=== PATIENT | male | born 1940 | race African-American/Black ===

== ENCOUNTER 2016-08-21 14:01 | Emergency (ER) | payer MEDICARE, OTHER ==
--- NOTE | 2016-08-21 14:12 | ER Document Report ---
ED Medical Screen (RME) - General Chief Complaint: Urinary Problem Stated Complaint: URINARY PROBLEM Mode of Arrival: Ambulatory Information source: Patient Notes: Pt presents with c/o hematuria, hx of prostate cancer. Reports hematuria started last night. Reports he has not been able to urinate fully since December 2015 when his doctor dilated his ureter. He reports he is just pain and now is drinking blood. I have greeted and performed a rapid initial assessment of this patient. A comprehensive ED assessment and evaluation of the patient, analysis of test results and completion of the medical decision making process will be conducted by additional ED providers. TRAVEL OUTSIDE OF THE [place] IN LAST 30 DAYS: No - Related Data Allergies/Adverse Reactions: Penicillins Allergy (Verified 08/21/16 14:04) Past Medical History - Social History Chew tobacco use (# tins/day): No Frequency of alcohol use: Social Drug Abuse: None - Past Medical History Cardiac Medical History: Reports: Hx Hypercholesterolemia, Hx Hypertension Renal/ Medical History: Denies: Hx Peritoneal Dialysis Malignancy Medical History: Reports Hx Prostate Cancer Past Surgical History: Reports: Hx Genitourinary Surgery - Prostatectomy? - Immunizations Hx Diphtheria, Pertussis, Tetanus Vaccination: Yes Physical Exam - Vital signs Vitals: Temp Pulse Resp BP Pulse Ox 97.7 F 75 14 141/69 H 96 08/21/16 14:04 08/21/16 14:04 08/21/16 14:04 08/21/16 14:04 08/21/16 14:04 Course - Vital Signs Vital signs: Temp Pulse Resp BP Pulse Ox 97.7 F 75 14 141/69 H 96 08/21/16 14:04 08/21/16 14:04 08/21/16 14:04 08/21/16 14:04 08/21/16 14:04
[2016-08-21 14:35] LABS: ABSOLUTE EOSINOPHILS # (AUTO) 0.2 10^3/uL (0.0-0.6); ABSOLUTE LYMPHOCYTES (AUTO) 1.1 10^3/uL (0.5-4.7); ABSOLUTE MONOCYTES (AUTO) 0.4 10^3/uL (0.1-1.4); BASOPHILS % (AUTO) 0.7 % (0-2); EOSINOPHILS % (AUTO) 2.8 % (0-6); HEMOGLOBIN 11.9 g/dL (13.5-17.0); HGB HCT DIFFERENCE -2.3; LYMPHOCYTES % (AUTO) 18.6 % (13-45); MEAN CORPUSCULAR HEMOGLOBIN 27.3 pg (27.0-33.4); MEAN CORPUSCULAR HGB CONC 31.2 g/dL (32.0-36.0); MEAN CORPUSCULAR VOLUME 87 fl (80-97); RED BLOOD COUNT 4.34 10^6/uL (4.35-5.55); SEGMENTED NEUTROPHILS % (AUTO) 70.9 % (42-78); WHITE BLOOD COUNT 5.7 10^3/uL (4.0-10.5)
[2016-08-21 14:58] LABS: ALANINE AMINOTRANSFERASE 18 U/L (21-72); ALBUMIN 4.5 g/dL (3.5-5.0); ALKALINE PHOSPHATASE 124 U/L (38-126); ANION GAP 12 (5-19); ASPARTATE AMINO TRANSFERASE 24 U/L (17-59); BILIRUBIN,TOTAL 0.8 mg/dL (0.2-1.3); BLOOD UREA NITROGEN 16 mg/dL (7-20); CALCIUM 10.4 mg/dL (8.4-10.2); CARBON DIOXIDE 25 mmol/L (22-30); CHLORIDE 107 mmol/L (98-107); CREATININE RESULT 1.69 mg/dL (0.52-1.25); GLUCOSE 96 mg/dL (75-110); POTASSIUM 3.7 mmol/L (3.6-5.0); SODIUM 143.5 mmol/L (137-145)
--- NOTE | 2016-08-21 17:03 | ER Document Report ---
ED GI/ - General Chief Complaint: Urinary Problem Stated Complaint: URINARY PROBLEM Mode of Arrival: Ambulatory Information source: Patient Notes: Patient is a 75-year-old male with past medical history of prostate cancer with prostatectomy according to the patient in 2001. Patient wears a diaper daily for chronic "leakage". Patient states however last evening he saw a clot of blood from his penis. He states since then he's had some intermittent leakage with some intermittent blood clots. He denies any abdominal pain or fullness, he denies any fevers or vomiting. Patient does have a local urologist. TRAVEL OUTSIDE OF THE [place] IN LAST 30 DAYS: No - HPI Patient complains to provider of: Hematuria, Urinary retention. No: Testicular pain Onset: Other - See above Timing/Duration: Gradual Quality of pain: Achy Severity at maximum: Mild Severity in ED: Mild Pain Level: Denies Location: Suprapubic Associated symptoms: Other - See above Exacerbated by: Denies Relieved by: Denies Similar symptoms previously: Yes Recently seen / treated by doctor: No - Related Data Allergies/Adverse Reactions: Penicillins Allergy (Verified 08/21/16 14:04) Past Medical History - General Information source: Patient - Social History Smoking Status: Never Smoker Chew tobacco use (# tins/day): No Frequency of alcohol use: Social Drug Abuse: None Family History: Reviewed & Not Pertinent Patient has suicidal ideation: No Patient has homicidal ideation: No - Past Medical History Cardiac Medical History: Reports: Hx Hypercholesterolemia, Hx Hypertension Renal/ Medical History: Denies: Hx Peritoneal Dialysis Malignancy Medical History: Reports Hx Prostate Cancer Past Surgical History: Reports: Hx Genitourinary Surgery - Prostatectomy? - Immunizations Hx Diphtheria, Pertussis, Tetanus Vaccination: Yes Review of Systems - Review of Systems Constitutional: denies: Fever Gastrointestinal: denies: Abdomen distended, Abdominal pain, Diarrhea, Nausea, Vomiting Genitourinary: denies: Dysuria, Flank pain, Urgency Male Genitourinary: denies: Testicular pain Skin: denies: Rash -: Yes All other systems reviewed and negative Physical Exam - Vital signs Vitals: Temp Pulse Resp BP Pulse Ox 97.7 F 75 14 141/69 H 96 08/21/16 14:04 08/21/16 14:04 08/21/16 14:04 08/21/16 14:04 08/21/16 14:04 Notes: Reviewed vital signs and nursing note as charted by RN. CONSTITUTIONAL: Alert and oriented and responds appropriately to questions. Well -appearing; well-nourished HEAD: Normocephalic; atraumatic EYES: Conjunctivae is not pale ABD/GI: Normal bowel sounds; non-distended; soft, non-tender, no rebound, no guarding; no palpable organomegaly or masses GI/: Patient does have some mild blood from the urethral meatus. No obvious testicular pain or swelling. No penile lesions. No internal masses present. BACK: The back appears normal and is non-tender to palpation, there is no CVA tenderness EXT: Normal ROM in all joints; non-tender to palpation; no cyanosis, no effusions, no edema SKIN: Normal color for age and race; warm; dry; good turgor; capillary refill < 2 seconds; no acute lesions noted NEURO: Moves all extremities equally; Motor and sensory function intact PSYCH: The patient's mood and manner are appropriate. Grooming and personal hygiene are appropriate. Course - Re-evaluation Re-evalutation: Given the history and physical examination we will order hemoglobin, chemistry, and check the patient's urinalysis as well as attempt to place a three-way stopcock Draper with some gentle irrigation. 08/21/16 17:03 Hemoglobin and chemistry as recorded. Creatinine is baseline or slightly better than normal. Patient still denies any pain. 08/21/16 18:42 Urinalysis as recorded. Urine Draper catheterization shows now on a very minimally tinted urine. I performed a rectal examination can detect no obvious masses. Patient still has no pain. Patient did not have a large volume of urine with Draper insertion. Patient will be placed with a Draper leg bag, urine culture will be pending, and I will start the patient on a short course of antibiotics. Strict return precautions have been explained. - Vital Signs Vital signs: Temp Pulse Resp BP Pulse Ox 97.7 F 75 14 141/69 H 96 08/21/16 14:04 08/21/16 14:04 08/21/16 14:04 08/21/16 14:04 08/21/16 14:04 - Laboratory Result Diagrams: 08/21/16 14:20 08/21/16 14:20 Laboratory results interpreted by me: 0108/21/16 08/21/16 14:20 14:20 17:00 RBC 4.34 L Hgb 11.9 L MCHC 31.2 L RDW 15.0 H Creatinine 1.69 H Est GFR ( Amer) 48 L Est GFR (Non-Af Amer) 40 L Calcium 10.4 H ALT 18 L Urine Protein >=500 H Urine Ketones TRACE H Urine Blood LARGE H Ur Leukocyte Esterase TRACE H Discharge - Discharge Clinical Impression: Hematuria Condition: Good Disposition: HOME, SELF-CARE Additional Instructions: Come back immediately with any pain, fevers, vomiting, inability to urinate, or any other acute problems. Please follow-up with urology as we have discussed. Prescriptions: Sulfamethoxazole/Trimethoprim [Bactrim Ds Tablet] 1 each PO BID #14 tablet
[2016-08-21 18:28] LABS: BILIRUBIN,URINE NEGATIVE (NEGATIVE); CALCIUM OXALATE CRYSTALS,URINE MANY /HPF; GLUCOSE, URINE NEGATIVE (NEGATIVE); KETONES,URINE TRACE mg/dL (NEGATIVE); LEUKOCYTE ESTERASE,URINE TRACE (NEGATIVE); NITRITE,URINE NEGATIVE (NEGATIVE); PROTEIN,URINE >=500 mg/dL (NEGATIVE); URINE SPECIFIC GRAVITY 1.012; UROBILINOGEN,URINE NEGATIVE mg/dL (<2.0)
[2016-08-21 18:30] LABS: APPEARANCE,URINE TURBID
[2016-08-21] MEDS ORDERED: SULFAMETHOXAZOLE/TRIMETHOPRIM 800-160 MG TABLET PO ONE (18:41)
[2016-08-21 19:15] VITALS: BP 143/66
== END 2016-08-21 19:14 | disposition home or self-care (01) ==
LOC: ER 14:01
DX: R31.9 Hematuria, unspecified (principal); E78.00 Pure hypercholesterolemia, unspecified; I10 Essential (primary) hypertension; Z85.46 Personal history of malignant neoplasm of prostate
CPT/HCPCS: 99283; 51702; 36415; 87086; 85025; 80053; 81001; A9270

== ENCOUNTER 2016-08-24 12:33 | Emergency (ER) | payer MEDICARE, OTHER ==
--- NOTE | 2016-08-24 12:41 | ER Document Report ---
ED Medical Screen (RME) - General Stated Complaint: POSSIBLE BLOOD IN URIN Notes: Blood in urine since has a leg bag in place. No output since 10:00 last night leaking out around the urethra. I greeted and performed a rapid initial assessment of this patient. Comprehensive ED assessment and evaluation of the patient, analysis of test results and completion of the medical decision making process will be conducted by additional ED providers. TRAVEL OUTSIDE OF THE [place] IN LAST 30 DAYS: No - Related Data Allergies/Adverse Reactions: Penicillins Allergy (Verified 08/21/16 14:04) Past Medical History - Past Medical History Cardiac Medical History: Reports: Hx Hypercholesterolemia, Hx Hypertension Renal/ Medical History: Denies: Hx Peritoneal Dialysis Malignancy Medical History: Reports Hx Prostate Cancer Past Surgical History: Reports: Hx Genitourinary Surgery - Prostatectomy? - Immunizations Hx Diphtheria, Pertussis, Tetanus Vaccination: Yes Physical Exam - Vital signs Vitals: Temp Pulse Resp BP Pulse Ox 98.1 F 66 20 109/55 L 100 08/24/16 12:39 08/24/16 12:39 08/24/16 12:39 08/24/16 12:39 08/24/16 12:39 Course - Vital Signs Vital signs: Temp Pulse Resp BP Pulse Ox 98.1 F 66 20 109/55 L 100 08/24/16 12:39 08/24/16 12:39 08/24/16 12:39 08/24/16 12:39 08/24/16 12:39
[2016-08-24] MEDS ORDERED: LIDOCAINE 2% URO-JET 5 ML KIT MM ONE (14:03)
--- NOTE | 2016-08-24 14:04 | ER Document Report ---
ED GI/ - General Chief Complaint: Problem with Urinary Catheter Stated Complaint: POSSIBLE BLOOD IN URIN Mode of Arrival: Ambulatory Information source: Patient Notes: Patient was evaluated in the emergency department 3 days ago after having hematuria. Patient had a Draper catheter placed to leg bag and was discharged home. Patient states he has been taking his antibiotic as prescribed. Patient reports decreased urine output since about 10 PM last night and some leaking around his Draper catheter. Patient states that he does have an appointment with the urologist tomorrow. Patient denies any fever, nausea, vomiting, or diarrhea. Patient denies any back pain or abdominal pain. TRAVEL OUTSIDE OF THE [place] IN LAST 30 DAYS: No - HPI Patient complains to provider of: Other - Decreased urine output, continued hematuria. No: Abdominal pain, Dysuria Onset: Other - 3 days Timing/Duration: Worse Quality of pain: No pain Pain Level: Denies Associated symptoms: Hematuria, Other - Decreased urine output. denies: Dysuria , Fever, Urinary hesitancy, Urinary frequency, Vomiting Exacerbated by: Denies Relieved by: Denies Similar symptoms previously: Yes Recently seen / treated by doctor: Yes - Related Data Allergies/Adverse Reactions: Penicillins Allergy (Verified 08/24/16 12:42) Past Medical History - General Information source: Patient - Social History Smoking Status: Never Smoker Chew tobacco use (# tins/day): No Frequency of alcohol use: Occasional Drug Abuse: None Occupation: retired Lives with: Alone Family History: Reviewed & Not Pertinent Patient has suicidal ideation: No Patient has homicidal ideation: No - Past Medical History Cardiac Medical History: Reports: Hx Hypercholesterolemia, Hx Hypertension Renal/ Medical History: Denies: Hx Peritoneal Dialysis Malignancy Medical History: Reports Hx Prostate Cancer Past Surgical History: Reports: Hx Genitourinary Surgery - Prostatectomy? - Immunizations Hx Diphtheria, Pertussis, Tetanus Vaccination: Yes Review of Systems - Review of Systems Constitutional: Recent illness - Treatment for UTI. denies: Fever EENT: No symptoms reported Cardiovascular: No symptoms reported. denies: Chest pain Respiratory: No symptoms reported. denies: Cough, Short of breath Gastrointestinal: No symptoms reported. denies: Abdominal pain, Nausea, Vomiting Genitourinary: Hematuria, Other - Decreased urine output. denies: Dysuria, Flank pain Male Genitourinary: No symptoms reported Musculoskeletal: No symptoms reported. denies: Back pain Skin: No symptoms reported Hematologic/Lymphatic: No symptoms reported. denies: Easy bleeding, Easy bruising Neurological/Psychological: No symptoms reported Physical Exam - Vital signs Vitals: Temp Pulse Resp BP Pulse Ox 98.1 F 66 20 109/55 L 100 08/24/16 12:39 08/24/16 12:39 08/24/16 12:39 08/24/16 12:39 08/24/16 12:39 - General General appearance: Appears well, Alert In distress: None - HEENT Head: Normocephalic, Atraumatic Eyes: Normal Conjunctiva: Normal Nasal: Normal Mouth/Lips: Normal Mucous membranes: Normal Pharynx: Normal Neck: Normal, Supple. No: Lymphadenopathy - Respiratory Respiratory status: No respiratory distress Chest status: Nontender Breath sounds: Normal. No: Rales, Rhonchi, Stridor, Wheezing Chest palpation: Normal - Cardiovascular Rhythm: Regular Heart sounds: S1 appreciated, S2 appreciated - Abdominal Inspection: Normal Distension: No distension Bowel sounds: Normal Tenderness: Nontender Organomegaly: No organomegaly - Back Back: Normal, Nontender. No: CVA tenderness - Extremities General upper extremity: Normal inspection, Normal strength General lower extremity: Normal inspection, Normal strength - Neurological Neuro grossly intact: Yes Cognition: Normal Orientation: AAOx4 [place] Coma Scale Eye Opening: Spontaneous [place] Coma Scale Verbal: Oriented Livia Coma Scale Motor: Obeys Commands Livia Coma Scale Total: 15 - Psychological Associated symptoms: Normal affect, Normal mood - Skin Skin Temperature: Warm Skin Moisture: Dry Skin Color: Normal Course - Re-evaluation Re-evalutation: 08/24/16 14:[address] Conklin, agrees with plan to perform bladder irrigation and to replace his Draper catheter. 08/24/16 17:03 CBI to bedside, draining clear urine with occasional clots. Patient tolerating well. Patient denies any complaints at this time. 08/24/16 17:10 Call placed to contact Dr. Aguilar who is on-call for urology. 08/24/16 17:11 Patient presents with worsening renal function although urinalysis has improved with regards to the wbc in the urine as compared to his visit on the . Patient has been taking Bactrim to treat for possible UTI for the past 3 days. Uncertain if the patient's worsening renal function is attributed to the Bactrim or from obstructive clot in his Draper bag. Plan to give patient IV fluid bolus, Dr. Conklin agrees with this plan of care. 08/24/16 17:[address] Aguilar who recommends discontinuing the Bactrim, encouraging patient to increase his oral hydration and having patient follow up in office tomorrow morning as planned. Would like to have an outpatient history panel repeated prior to his visit tomorrow. Does not feel the patient needs admission at this time. - Vital Signs Vital signs: Temp Pulse Resp BP Pulse Ox 98.3 F 80 16 128/52 H 98 08/24/16 18:40 08/24/16 18:40 08/24/16 18:40 08/24/16 18:40 08/24/16 18:40 - Laboratory Result Diagrams: 08/24/16 15:42 08/24/16 15:42 Laboratory results interpreted by me: 08/24/16 08/24/16 08/24/16 15:42 15:42 15:42 RBC 4.01 L Hgb 11.0 L Hct 34.6 L MCHC 31.9 L RDW 14.7 H BUN 21 H Creatinine 3.08 H Est GFR ( Amer) 24 L Est GFR (Non-Af Amer) 20 L Calcium 10.6 H ALT 19 L Urine Protein 100 H Urine Blood LARGE H Labs- Entire Visit 08/24/16 08/24/16 08/24/16 15:42 15:42 15:42 WBC 6.6 RBC 4.01 L Hgb 11.0 L Hct 34.6 L MCV 86 MCH 27.5 MCHC 31.9 L RDW 14.7 H Plt Count 240 Seg Neutrophils % 71.1 Lymphocytes % 19.0 Monocytes % 6.3 Eosinophils % 2.8 Basophils % 0.8 Absolute Neutrophils 4.7 Absolute Lymphocytes 1.3 Absolute Monocytes 0.4 Absolute Eosinophils 0.2 Absolute Basophils 0.1 PT 12.7 INR 0.92 APTT 30.9 Sodium 144.0 Potassium 4.1 Chloride 106 Carbon Dioxide 24 Anion Gap 14 BUN 21 H Creatinine 3.08 H Est GFR ( Amer) 24 L Est GFR (Non-Af Amer) 20 L Glucose 89 Calcium 10.6 H Total Bilirubin 0.5 Direct Bilirubin 0.0 AST 18 ALT 19 L Alkaline Phosphatase 102 Total Protein 7.1 Albumin 4.2 Urine Color Urine Appearance Urine pH Ur Specific [place] Urine Protein Urine Glucose (UA) Urine Ketones Urine Blood Urine Nitrite Urine Bilirubin Urine Urobilinogen Ur Leukocyte Esterase Urine RBC (Auto) Urine Ascorbic Acid 08/24/16 15:42 WBC RBC Hgb Hct MCV MCH MCHC RDW Plt Count Seg Neutrophils % Lymphocytes % Monocytes % Eosinophils % Basophils % Absolute Neutrophils Absolute Lymphocytes Absolute Monocytes Absolute Eosinophils Absolute Basophils PT INR APTT Sodium Potassium Chloride Carbon Dioxide Anion Gap BUN Creatinine Est GFR ( Amer) Est GFR (Non-Af Amer) Glucose Calcium Total Bilirubin Direct Bilirubin AST ALT Alkaline Phosphatase Total Protein Albumin Urine Color RED Urine Appearance CLOUDY Urine pH 6.0 Ur Specific [place] 1.015 Urine Protein 100 H Urine Glucose (UA) NEGATIVE Urine Ketones NEGATIVE Urine Blood LARGE H Urine Nitrite NEGATIVE Urine Bilirubin NEGATIVE Urine Urobilinogen NEGATIVE Ur Leukocyte Esterase NEGATIVE Urine RBC (Auto) 1 Urine Ascorbic Acid NEGATIVE Reviewed patient's lab from his previous ER visit 3 days ago. 08/24/16 20:07 Discharge - Discharge Clinical Impression: Hematuria, Abnormal renal function test Condition: Stable Disposition: HOME, SELF-CARE Instructions: Hematuria ([facility]), Draper Catheter Care ([facility]) Additional Instructions: Return immediately for any new or worsening symptoms Followup with your primary care provider, call tomorrow to make a followup appointment Stop taking your antibiotic, Bactrim. Your renal function test today was abnormal as compared to your previous ER visit. Your urologist will have this test rechecked tomorrow. To the hospital several hours prior to your follow-up appointment tomorrow to have your blood drawn. Stay well hydrated, increase oral fluids. Forms: Follow-Up Laboratory Testing Referrals: CASSI AGUILAR MD [E[facility] LIN] - Follow up tomorrow
[2016-08-24 16:11] LABS: PROTHROMBIN TIME 12.7 SEC (11.4-15.4)
[2016-08-24 16:12] LABS: PARTIAL THROMBOPLASTIN TIME 30.9 SEC (23.5-35.8)
[2016-08-24 16:13] LABS: ABSOLUTE BASOPHILS # (AUTO) 0.1 10^3/uL (0.0-0.2); ABSOLUTE EOSINOPHILS # (AUTO) 0.2 10^3/uL (0.0-0.6); ABSOLUTE LYMPHOCYTES (AUTO) 1.3 10^3/uL (0.5-4.7); ABSOLUTE MONOCYTES (AUTO) 0.4 10^3/uL (0.1-1.4); ABSOLUTE NEUT (AUTO) 4.7 10^3/uL (1.7-8.2); BASOPHILS % (AUTO) 0.8 % (0-2); EOSINOPHILS % (AUTO) 2.8 % (0-6); HEMATOCRIT 34.6 % (37.9-51.0); HGB HCT DIFFERENCE -1.6; MEAN CORPUSCULAR HEMOGLOBIN 27.5 pg (27.0-33.4); MEAN CORPUSCULAR HGB CONC 31.9 g/dL (32.0-36.0); MEAN CORPUSCULAR VOLUME 86 fl (80-97); MONOCYTES % (AUTO) 6.3 % (3-13); RED BLOOD COUNT 4.01 10^6/uL (4.35-5.55); RED CELL DISTRIBUTION WIDTH 14.7 % (11.5-14.0); SEGMENTED NEUTROPHILS % (AUTO) 71.1 % (42-78); WHITE BLOOD COUNT 6.6 10^3/uL (4.0-10.5)
[2016-08-24 16:20] LABS: APPEARANCE,URINE CLOUDY; BILIRUBIN,URINE NEGATIVE (NEGATIVE); GLUCOSE, URINE NEGATIVE (NEGATIVE); KETONES,URINE NEGATIVE (NEGATIVE); LEUKOCYTE ESTERASE,URINE NEGATIVE (NEGATIVE); NITRITE,URINE NEGATIVE (NEGATIVE); PROTEIN,URINE 100 mg/dL (NEGATIVE); URINE SPECIFIC GRAVITY 1.015; UROBILINOGEN,URINE NEGATIVE mg/dL (<2.0)
[2016-08-24 16:30] LABS: ALANINE AMINOTRANSFERASE 19 U/L (21-72); ALBUMIN 4.2 g/dL (3.5-5.0); ALKALINE PHOSPHATASE 102 U/L (38-126); ANION GAP 14 (5-19); ASPARTATE AMINO TRANSFERASE 18 U/L (17-59); BILIRUBIN,TOTAL 0.5 mg/dL (0.2-1.3); BLOOD UREA NITROGEN 21 mg/dL (7-20); CALCIUM 10.6 mg/dL (8.4-10.2); CARBON DIOXIDE 24 mmol/L (22-30); CHLORIDE 106 mmol/L (98-107); CREATININE RESULT 3.08 mg/dL (0.52-1.25); GLUCOSE 89 mg/dL (75-110); POTASSIUM 4.1 mmol/L (3.6-5.0); TOTAL PROTEIN 7.1 g/dL (6.3-8.2)
[2016-08-24] MEDS ORDERED: NORMAL SALINE 1000 ML 1,000 ML IV ONE (17:11)
[2016-08-24 18:41] VITALS: BP 128/52
== END 2016-08-24 18:58 | disposition home or self-care (01) ==
LOC: ER 12:33
DX: R31.9 Hematuria, unspecified (principal); R94.4 Abnormal results of kidney function studies; E78.00 Pure hypercholesterolemia, unspecified; I10 Essential (primary) hypertension; Z85.46 Personal history of malignant neoplasm of prostate; Z88.0 Allergy status to penicillin
CPT/HCPCS: 99283; 96360; 51702; 36415; 87086; 85025; 85610; 85730; 80053; 81001; J7030; A9270; J3490

== ENCOUNTER → 2016-08-25 | Outpatient (CLI) | payer MEDICARE, OTHER ==
[2016-08-25 13:34] LABS: ANION GAP 13 (5-19); BLOOD UREA NITROGEN 18 mg/dL (7-20); CALCIUM 10.6 mg/dL (8.4-10.2); CARBON DIOXIDE 24 mmol/L (22-30); CHLORIDE 108 mmol/L (98-107); CREATININE RESULT 2.73 mg/dL (0.52-1.25); GLUCOSE 105 mg/dL (75-110); POTASSIUM 4.2 mmol/L (3.6-5.0); SODIUM 145.2 mmol/L (137-145)
== END ==
LOC: LAB 12:48
PROVIDERS: ATTEND Nurse Practitioner Family
DX: R31.9 Hematuria, unspecified (principal); R94.4 Abnormal results of kidney function studies
CPT/HCPCS: 36415; 80048

== ENCOUNTER → 2016-08-26 | Outpatient (CLI) | payer MEDICARE, OTHER | LOC: RAD 09:25 | PROVIDERS: ATTEND Urology | DX: R31.0 Gross hematuria (principal); N26.1 Atrophy of kidney (terminal); K57.30 Diverticulosis of large intestine without perforation or abscess without bleeding | CPT/HCPCS: 74176 ==

== ENCOUNTER → 2016-08-27 | Outpatient (CLI) | payer MEDICARE, OTHER ==
[2016-08-27 11:25] LABS: ANION GAP 14 (5-19); BLOOD UREA NITROGEN 16 mg/dL (7-20); CALCIUM 10.6 mg/dL (8.4-10.2); CARBON DIOXIDE 21 mmol/L (22-30); CHLORIDE 107 mmol/L (98-107); CREATININE RESULT 2.41 mg/dL (0.52-1.25); GLUCOSE 94 mg/dL (75-110); POTASSIUM 4.1 mmol/L (3.6-5.0); SODIUM 141.6 mmol/L (137-145)
== END ==
LOC: LAB 10:42
PROVIDERS: ATTEND Urology
DX: R31.0 Gross hematuria (principal)
CPT/HCPCS: 36415; 80048

== ENCOUNTER → 2016-09-02 | Outpatient (CLI) | payer MEDICARE, OTHER ==
[2016-09-02 17:09] LABS: ANION GAP 14 (5-19); BLOOD UREA NITROGEN 16 mg/dL (7-20); CALCIUM 10.7 mg/dL (8.4-10.2); CARBON DIOXIDE 24 mmol/L (22-30); CHLORIDE 106 mmol/L (98-107); CREATININE RESULT 1.92 mg/dL (0.52-1.25); GLUCOSE 91 mg/dL (75-110); POTASSIUM 3.7 mmol/L (3.6-5.0); SODIUM 143.5 mmol/L (137-145)
== END ==
LOC: LAB 15:42
PROVIDERS: ATTEND Urology
DX: R31.0 Gross hematuria (principal)
CPT/HCPCS: 36415; 80048

== ENCOUNTER → 2016-10-24 | Outpatient (CLI) | payer MEDICARE, OTHER ==
[2016-10-24 16:49] LABS: ALANINE AMINOTRANSFERASE 17 U/L (21-72); ALBUMIN 3.9 g/dL (3.5-5.0); ALKALINE PHOSPHATASE 130 U/L (38-126); ASPARTATE AMINO TRANSFERASE 13 U/L (17-59); BILIRUBIN,DIRECT 0.4 mg/dL (0.0-0.4); BILIRUBIN,TOTAL 0.8 mg/dL (0.2-1.3); CHOLESTEROL 186.41 mg/dL (0-200); Direct HDL 51 mg/dL (>40); TOTAL PROTEIN 7.1 g/dL (6.3-8.2); TRIGLYCERIDES 145 mg/dL (<150)
[2016-10-24 17:00] LABS: DIRECT LDL 58 mg/dL (<100)
== END ==
LOC: OD 14:56
PROVIDERS: ATTEND Internal Medicine Cardiovascular Disease
DX: E78.00 Pure hypercholesterolemia, unspecified (principal); Z79.899 Other long term (current) drug therapy
CPT/HCPCS: 36415; 80061; 80076

== ENCOUNTER → 2016-11-05 | Outpatient (CLI) | payer MEDICARE, OTHER ==
[2016-11-07 08:58] LABS: VITAMIN D 25-HYDROXY 68.8 ng/mL (30.0-100.0)
[2016-11-10 08:22] LABS: PTH RELATED PEPTIDE 1.2 pmol/L (.)
== END ==
LOC: LAB 14:26
PROVIDERS: ATTEND Physician Assistant
DX: E83.52 Hypercalcemia (principal); R63.4 Abnormal weight loss
CPT/HCPCS: 36415; 82306; 82310; 82330; 82397; 83970; 85652

== ENCOUNTER 2016-12-01 19:39 | Inpatient (IN) | payer MEDICARE, OTHER ==
[2016-12-01] MEDS ORDERED: NORMAL SALINE 1000 ML 1,000 ML IV ONE (19:59)
[2016-12-01 20:05] LABS: ABSOLUTE LYMPHOCYTES (AUTO) 1.6 10^3/uL (0.5-4.7); ABSOLUTE MONOCYTES (AUTO) 0.7 10^3/uL (0.1-1.4); ABSOLUTE NEUT (AUTO) 11.9 10^3/uL (1.7-8.2); BASOPHILS % (AUTO) 0.3 % (0-2); EOSINOPHILS % (AUTO) 0.1 % (0-6); HEMATOCRIT 30.2 % (37.9-51.0); HEMOGLOBIN 9.7 g/dL (13.5-17.0); HGB HCT DIFFERENCE -1.1; LYMPHOCYTES % (AUTO) 11.2 % (13-45); MEAN CORPUSCULAR HEMOGLOBIN 24.9 pg (27.0-33.4); MEAN CORPUSCULAR HGB CONC 32.3 g/dL (32.0-36.0); MEAN CORPUSCULAR VOLUME 77 fl (80-97); MONOCYTES % (AUTO) 4.9 % (3-13); RED BLOOD COUNT 3.91 10^6/uL (4.35-5.55); RED CELL DISTRIBUTION WIDTH 14.7 % (11.5-14.0); SEGMENTED NEUTROPHILS % (AUTO) 83.5 % (42-78); WHITE BLOOD COUNT 14.3 10^3/uL (4.0-10.5)
[2016-12-01 20:29] LABS: ALANINE AMINOTRANSFERASE 18 U/L (21-72); ALBUMIN 4.1 g/dL (3.5-5.0); ALKALINE PHOSPHATASE 98 U/L (38-126); ANION GAP 16 (5-19); ASPARTATE AMINO TRANSFERASE 28 U/L (17-59); BILIRUBIN,DIRECT 0.5 mg/dL (0.0-0.4); BILIRUBIN,TOTAL 0.7 mg/dL (0.2-1.3); BLOOD UREA NITROGEN 44 mg/dL (7-20); CARBON DIOXIDE 25 mmol/L (22-30); CHLORIDE 106 mmol/L (98-107); CREATINE KINASE 32 U/L (55-170); CREATININE RESULT 2.04 mg/dL (0.52-1.25); GLUCOSE 133 mg/dL (75-110); POTASSIUM 4.1 mmol/L (3.6-5.0); SODIUM 147.3 mmol/L (137-145); TOTAL PROTEIN 8.5 g/dL (6.3-8.2)
[2016-12-01 20:36] LABS: PREALBUMIN 18.5 mg/dL (17.6-36.0)
[2016-12-01 20:40] LABS: CALCIUM 12.4 mg/dL (8.4-10.2)
[2016-12-01 20:41] LABS: CREATINE KINASE MB 0.31 ng/mL (<4.55)
--- NOTE | 2016-12-01 20:41 | ER Document Report ---
ED General - General Chief Complaint: Palpitations Stated Complaint: HEART PALPITATIONS Time Seen by Provider: 12/01/16 19:50 Notes: Patient is a 75-year-old male with past medical history of hypertension who presents with 6 months of intermittent palpitations and generalized weakness. He also notes progressive weight loss over that period of time. He presents today complaining mostly of generalized fatigue which he states now is to a point where prohibits him from completing his activities of daily living. He also notes that he has no appetite and often goes days without eating. He continues to have gross hematuria which she has had now for at least 8 months and has never had a workup for malignancy. He has not seen his primary care doctor regarding today's concerns. He denies any associated chest pain, shortness of breath, vomiting, fever or altered mental status. No history of DVT or pulmonary embolus. TRAVEL OUTSIDE OF THE [place] IN LAST 30 DAYS: No - Related Data Allergies/Adverse Reactions: Penicillins Allergy (Verified 08/24/16 12:42) Past Medical History - General Information source: Patient - Social History Smoking Status: Never Smoker Frequency of alcohol use: None Drug Abuse: None Lives with: Alone Family History: Reviewed & Not Pertinent - Past Medical History Cardiac Medical History: Reports: Hx Hypercholesterolemia, Hx Hypertension Renal/ Medical History: Denies: Hx Peritoneal Dialysis Malignancy Medical History: Reports Hx Prostate Cancer Past Surgical History: Reports: Hx Genitourinary Surgery - Prostatectomy? - Immunizations Hx Diphtheria, Pertussis, Tetanus Vaccination: Yes Review of Systems - Review of Systems Notes: Constitutional: Negative for fever. Positive for generalized fatigue HENT: Negative for sore throat. Eyes: Negative for visual changes. Cardiovascular: Negative for chest pain. Positive palpitations Respiratory: Negative for shortness of breath. Gastrointestinal: Negative for abdominal pain, vomiting or diarrhea. Genitourinary: Negative for dysuria. Musculoskeletal: Negative for back pain. Skin: Negative for rash. Neurological: Negative for headaches, weakness or numbness. 10 point ROS negative except as marked above and in HPI. Physical Exam - Vital signs Vitals: Resp 16 12/01/16 19:51 Interpretation: Tachycardic Notes: PHYSICAL EXAMINATION: GENERAL: Appears emaciated, malnourished. No acute distress although does appear somewhat uncomfortable HEAD: Atraumatic, normocephalic. EYES: Pupils equal round and reactive to light, extraocular movements intact, sclera anicteric, conjunctiva are normal. ENT: nares patent, oropharynx clear without exudates. Severely dry mucous membranes. NECK: Normal range of motion, supple without lymphadenopathy LUNGS: Breath sounds clear to auscultation bilaterally and equal. No wheezes rales or rhonchi. HEART: Regular tachycardia without murmurs ABDOMEN: Soft, nontender, normoactive bowel sounds. No guarding, no rebound. No masses appreciated. EXTREMITIES: Normal range of motion, no pitting or edema. No cyanosis. NEUROLOGICAL: No focal neurological deficits. Moves all extremities spontaneously and on command. PSYCH: Normal mood, normal affect. SKIN: Warm, Dry, normal turgor, no rashes or lesions noted. Course - Re-evaluation Re-evalutation: 12/01/16 20:00 Patient presents tachycardic into the 140s complaining of generalized weakness and fatigue. Patient has lost 12 kg since July of this year and continues to have hematuria that has not been worked up for consideration of bladder cancer which would be my primary concern given patient's report of anorexia, persistent weight loss and lack of appetite. His tachycardia is likely secondary to dehydration as it is a sinus rhythm on initial EKG and he appears clinically very dehydrated and emaciated. Patient is critical at time of arrival secondary to his dehydration, severe tachycardia, and will likely require frequent reassessments admission to the hospital 2037-patient's heart rate is gradually improving after receiving a total of 400 mL of normal saline. Heart rate is now 115. States he's beginning to feel somewhat better. Initial laboratories demonstrate evidence of hemoconcentration. Metabolic panel is pending. Will continue to reassess 12/01/16 20:41 Base metabolic panel has returned showing a prerenal azotemia at 21 BUN/ creatinine ratio. This is again consistent with likely diagnosis of dehydration in the setting of sinus tachycardia and now with an acute kidney injury. Prealbumin is within normal limits. I suspect patient may have an undiagnosed malignancy as discussed earlier. He will require admission. 12/01/16 21:13 I discussed this case with Dr. Saman Gipson who has agreed to admit the patient at this time. The patient was updated on the care plan. - Vital Signs Vital signs: Temp Pulse Resp BP Pulse Ox 15 142/87 H 12/01/16 20:40 12/01/16 20:01 - Laboratory Result Diagrams: 12/01/16 19:55 12/01/16 19:55 Laboratory results interpreted by me: 12/01/16 12/01/16 19:55 19:55 WBC 14.3 H RBC 3.91 L Hgb 9.7 L Hct 30.2 L MCV 77 L MCH 24.9 L RDW 14.7 H Plt Count 624 H Seg Neutrophils % 83.5 H Lymphocytes % 11.2 L Absolute Neutrophils 11.9 H Sodium 147.3 H BUN 44 H Creatinine 2.04 H Est GFR ( Amer) 39 L Est GFR (Non-Af Amer) 32 L Glucose 133 H Calcium 12.4 H* Direct Bilirubin 0.5 H ALT 18 L Creatine Kinase 32 L Total Protein 8.5 H - Diagnostic Test Radiology reviewed: Image reviewed, Reports reviewed Radiology results interpreted by me: 12/01/16 20:39 Chest x-ray: No acute infiltrate. Hyperinflation. - EKG Interpretation by Me Additional EKG results interpreted by me: 12/01/16 20:40 Sinus tachycardia. Rate 128. P waves are present. No ST elevations or depressions. QTC is 426. Critical Care Note - Critical Care Note Total time excluding time spent on procedures (mins): 40 Comments: Critical care time spent obtaining history from patient or surrogate, discussions with consultants, development of treatment plan with patient or surrogate, evaluation of patient's response to treatment, examination of patient , ordering and performing treatments and interventions, ordering and review of laboratory studies, re-evaluation of patient's condition, ordering and review of radiographic studies and review of old charts Discharge - Discharge Clinical Impression: Dehydration, Sinus tachycardia, Anorexia Condition: Fair Disposition: ADMITTED OBSERVATION Admitting Provider: [place] [facility]ist [facility] Unit Admitted: Telemetry
[2016-12-01 20:44] LABS: TROPONIN I 0.05 ng/mL
[2016-12-01] MEDS ORDERED: NORMAL SALINE 1000 ML 1,000 ML IV PRN (21:12)
--- NOTE | 2016-12-01 21:32 | EKG REPORT ---
SEVERITY:- OTHERWISE NORMAL ECG - SINUS TACHYCARDIA BORDERLINE RIGHT AXIS DEVIATION : Confirmed by: Lelo Rosenbaum 01-Dec-2016 21:31:58
[2016-12-01 21:42] LABS: ADD ON TESTING BLD IN LAB ACKNOWLEDGE
[2016-12-01 22:06] LABS: MAGNESIUM 2.8 mg/dL (1.6-2.3)
[2016-12-01] MEDS ORDERED: ACETAMINOPHEN 325 MG TABLET PO PRN (23:00)
[2016-12-01 23:08] LABS: ADD ON TESTING BLD IN LAB ACKNOWLEDGE
[2016-12-01 23:28] LABS: PHOSPHORUS 4.6 mg/dL (2.5-4.5)
--- NOTE | 2016-12-01 23:29 | PDOC H&P ---
History of Present Illness Admission Date/PCP: 12/01/16 21:37 PCP None Cards Sara Patient complains of: palpitations, weakness History of Present Illness: DOMENIC ESQUEDA is a 75 year old -[place] male with underlying hypertension, gout, mild depression for the last 3 months, without suicidal or homicidal ideation, who presents to the emergency room for evaluation of above complaints. Patient has been discussed with emergency room physician who evaluated the patient. Of note, patient himself is somewhat of a poor historian. Describes a several month history of above complaints. Over the last 3 or 4 months, he's lost approximately 25 pounds, unintentional. Very poor appetite; states at times he will go "days" without eating. Generalized weakness has progressed to the point where he finds it difficult even to perform his normal activities of daily living. No fall. He's had mild associated lower abdominal discomfort, but no chest pain. Abdominal discomfort is aching in quality, intermittent. Nothing in particular makes it worse. No associated nausea vomiting, fever chills, or chest pain. No diarrhea or dysuria. Status post prostatectomy in 2001 with postoperative radiation treatment. December of last year, he underwent cystoscopy with incision of bladder neck contracture. Operative note reviewed. Describes approximately an 8 month history of persistent hematuria. CT scan in July of this year for evaluation of same revealed soft tissue fullness on the right side of the bladder. Scan was ordered by Dr. Dwyer. Patient states he's not sure if he saw Dr. Dwyer afterwards about this. Again, patient is somewhat of a poor historian. States when he wakes up in the morning, he is able to void a stream of urine. For the rest the day, however, he simply dribbles. No history of atrial fibrillation or atrial flutter. Cardiac history basically negative other than hypertension, with no prior myocardial infarction, congestive heart failure, pulmonary embolus, or DVT. Laboratory results are listed in [facility] and are reviewed. Patient has had milder hypercalcemia since July of this year. X-ray summary results are listed below, with full report(s) reviewed. . EKG reviewed. Social history/personal habits: A . Lives alone. Has children. Retired. No tobacco or illicit drug use. No alcohol use for the past 2-3 months. Allergies/adverse reactions are listed in [facility] and are reviewed. Uncertain reaction to penicillin; occurred as a child. Patient unsure if he can tolerate cephalosporins. Home medications bottle review, along with discussion with patient. Home medications initially autopopulated into [facility] may not accurately reflect patient's true medications, dosages, and/or frequencies. Has been off all medications for the past 2-4 weeks, due to his overall not feeling well, and generalized weakness. REVIEW OF SYSTEMS: Constitutional: See history and present illness. Eyes: Wears glasses. No current vision complaints. ENT: No swallowing problems or complaints. No hearing problems or complaints. Pulmonary: No current complaints. Cardiovascular: No current complaints, including chest pain. Gastrointestinal: See history and present illness. Skin: No current complaints, including rashes. Hematologic: No unusual easy bruising or bleeding. Neurologic: No current complaints, including numbness or tingling. Musculoskeletal: No current complaints, including painful joints. Psychiatric: Mild depression; denies suicidal or homicidal ideation. Endocrine: No current complaints, including polyuria. Genitourinary: See history and present illness. PHYSICAL EXAMINATION: 5 feet 10 inches tall. 49.9 kg. BMI 15.8 kg/m. Blood pressure 134/77. Pulse 116 and regular. 99% saturation on room air. Respirations are 12 and unlabored. Temperature not recorded on chart; skin feels normothermic. Quite thin almost emaciated elderly black male appearing perhaps a bit younger than his stated age. Pleasant awake alert and cooperative. No obvious distress other than mildly anxious. Skin is warm and dry. No grossly obvious evidence of rash in areas of skin examined. No subcutaneous nodules palpated. ENT: Hearing grossly normal to normal conversation. Tongue midline on protrusion pink and slightly tacky. Eyes: No scleral icterus. Pupils equal and reactive to light at 4 mm. [place] conjunctivae. Neck is supple and nontender to gentle active range of motion and palpation. Midline trachea. No palpable thyroid nodule mass enlargement or tenderness. Lymphatic: No palpable cervical or clavicular nodes. Psychiatric: Reasonable insight into acute and chronic medical issues. Oriented to time location and why here. Lungs: Auscultation reveals clear and equal breath sounds bilaterally. No use of accessory respiratory muscles. Cardiovascular: Heart regular rate and rhythm, without gallop murmur or rub. No carotid or abdominal aortic bruits. No ankle edema. Abdomen: soft, nontender other than scant lower abdominal discomfort to palpation, which is not overly remarkable, with positive bowel sounds. Certainly no evidence of guarding or peritoneal signs. No palpable abdominal mass or organomegaly. Extremities: No calf tenderness to compression. No grossly obvious visual evidence of calf swelling. Gentle manipulation of lower extremities fails to reveal any obvious evidence of injury or instability to knees hips or ankles. Neurologic: Moves upper extremities grossly normally. Patellar reflexes absent. Dorsiflexion and plantarflexion of feet 5 / 5 and symmetric. Past Medical History Cardiac Medical History: Reports: Hypertension Denies: Congestive Heart Failure, DVT, Myocardial Infarction, Hyperlipidema, Pulmonary Embolism Pulmonary Medical History: Denies: Asthma, Chronic Obstructive Pulmonary Disease (COPD), Sleep Apnea EENT Medical History: Denies: Eyes, Ears, Throat Neurological Medical History: Denies: Hemorrhagic CVA, Ischemic CVA, Seizures Endocrine Medical History: Reports: Other - Weight loss Denies: Diabetes Mellitus Type 1, Diabetes Mellitus Type 2, Hyperthyroidism, Hypothyroidism Renal/ Medical History: Reports: Other - Please see malignancy medical history. Several month history hematuria. Malignancy Medical History: Reports: Other - Prostate cancer GI Medical History: Denies: Cirrhosis, Gastroesophageal Reflux Disease, Hepatitis, Peptic Ulcer Disease Musculoskeltal Medical History: Reports: Gout Skin Medical History: Reports: None Psychiatric Medical History: Reports: Depression Denies: Alcohol Dependency, General Anxiety Disorder, Substance Abuse, Tobacco Dependency Hematology: Reports: None Infectious Medical History: Denies: Clostridium Difficile, Hepatitis B, Hepatitis C, Methicillin- Resistant Staph Aureus Past Surgical History Past Surgical History: Reports: Other - Prostatectomy, 2001, with postoperative radiation treatment for carcinoma. Social History Information Source: Patient, Emergency Med Personnel, [facility] Records Lives with: Alone Smoking Status: Unknown if Ever Smoked Frequency of Alcohol Use: None Drugs: None - Advance Directive Resuscitation Status: Full Code Surrogate healthcare decision maker:: Uncertain at this point in time. Family History Family History: Reviewed & Not Pertinent, Malignancy Parental Family History Reviewed: Yes - father of throat cancer; mother of old age. Children Family History Reviewed: Yes - Healthy Sibling(s) Family History Reviewed.: NA Medication/Allergy Home Medications: Aspirin [Ecotrin 81 mg EC Tablet] 81 mg PO DAILY 03/05/13 Atenolol [Tenormin 50 Mg Tablet] 50 mg PO DAILY 03/05/13 Lisinopril [Prinivil 10 mg Tablet] 10 mg PO DAILY 03/05/13 Allopurinol [Zyloprim 100 mg Tablet] 200 mg PO DAILY 12/26/15 Cholecalciferol (Vitamin D3) [Vitamin D3 2000 unit Tablet] 2,000 mg PO DAILY 08/11 Hydrochlorothiazide 12.5 mg PO DAILY 12/26/15 Allergies/Adverse Reactions: Penicillins Allergy (Verified 08/24/16 12:42) Physical Exam Vital Signs: Temp Pulse Resp BP Pulse Ox 15 142/87 H 12/01/16 20:40 12/01/16 20:01 Results Impressions: Chest X-Ray 12/01/16 19:46 IMPRESSION: NO ACUTE RADIOGRAPHIC FINDING IN THE CHEST. Assessment & Plan - Diagnosis (1) Anorexia Is this a current diagnosis for this admission?: YesPlan: Dietary consult. (2) Dehydration Is this a current diagnosis for this admission?: YesPlan: IV fluids. (3) Elevated troponin Is this a current diagnosis for this admission?: YesPlan: No clinical evidence of acute coronary syndrome, but will repeat troponin. (4) General weakness Is this a current diagnosis for this admission?: YesPlan: Physical therapy consult. (5) Hypernatremia Is this a current diagnosis for this admission?: YesPlan: Likely due to dehydration. IV fluid. Chemistry. (6) Leukocytosis Qualifiers: Leukocytosis type: unspecified Qualified Code(s): D72.829 - Elevated white blood cell count, unspecified Is this a current diagnosis for this admission?: YesPlan: No specific source. Urinalysis pending. Follow-up CBC with differential. (7) Hypercalcemia Is this a current diagnosis for this admission?: YesPlan: Worrisome for malignancy. Follow-up chemistry. intact PTH. Oncology consult. I have strongly encouraged patient not to get out of bed without notifying staff , to avoid a fall with injury. Knee high SCDs for DVT prophylaxis, along with subcutaneous heparin. Impression and plans were discussed with patient, who concurs. Time spent in evaluation and management of patient: 64 minutes. (8) Weight loss, unintentional Is this a current diagnosis for this admission?: YesPlan: Dietary consult. (9) Anemia Qualifiers: Anemia type: unspecified type Qualified Code(s): D64.9 - Anemia, unspecified Is this a current diagnosis for this admission?: YesPlan: Follow-up CBC with differential. No need for transfusion at present time. (10) CKD (chronic kidney disease), stage III Is this a current diagnosis for this admission?: YesPlan: Follow-up chemistry.
[2016-12-02] MEDS: 1/2 NORMAL SALINE 1,000 ML IV PRN ×4 (00:13→21:53)
[2016-12-02 00:50] LABS: ANION GAP 12 (5-19); BLOOD UREA NITROGEN 40 mg/dL (7-20); CALCIUM 11.2 mg/dL (8.4-10.2); CARBON DIOXIDE 24 mmol/L (22-30); CHLORIDE 110 mmol/L (98-107); CREATININE RESULT 1.75 mg/dL (0.52-1.25); GLUCOSE 105 mg/dL (75-110); POTASSIUM 4.1 mmol/L (3.6-5.0); SODIUM 146.4 mmol/L (137-145)
[2016-12-02 06:57] LABS: ABSOLUTE BASOPHILS # (AUTO) 0.1 10^3/uL (0.0-0.2); ABSOLUTE EOSINOPHILS # (AUTO) 0.1 10^3/uL (0.0-0.6); ABSOLUTE LYMPHOCYTES (AUTO) 1.3 10^3/uL (0.5-4.7); ABSOLUTE MONOCYTES (AUTO) 0.7 10^3/uL (0.1-1.4); ABSOLUTE NEUT (AUTO) 8.5 10^3/uL (1.7-8.2); BASOPHILS % (AUTO) 0.7 % (0-2); EOSINOPHILS % (AUTO) 0.6 % (0-6); HEMATOCRIT 23.4 % (37.9-51.0); HGB HCT DIFFERENCE -0.6; LYMPHOCYTES % (AUTO) 12.1 % (13-45); MEAN CORPUSCULAR HEMOGLOBIN 25.4 pg (27.0-33.4); MEAN CORPUSCULAR HGB CONC 32.6 g/dL (32.0-36.0); MEAN CORPUSCULAR VOLUME 78 fl (80-97); MONOCYTES % (AUTO) 6.3 % (3-13); RED CELL DISTRIBUTION WIDTH 14.3 % (11.5-14.0); SEGMENTED NEUTROPHILS % (AUTO) 80.3 % (42-78); WHITE BLOOD COUNT 10.6 10^3/uL (4.0-10.5)
[2016-12-02 07:15] LABS: ANION GAP 10 (5-19); BLOOD UREA NITROGEN 39 mg/dL (7-20); CALCIUM 10.3 mg/dL (8.4-10.2); CARBON DIOXIDE 22 mmol/L (22-30); CHLORIDE 110 mmol/L (98-107); CREATININE RESULT 1.53 mg/dL (0.52-1.25); GLUCOSE 95 mg/dL (75-110); POTASSIUM 4.2 mmol/L (3.6-5.0); SODIUM 141.9 mmol/L (137-145)
--- NOTE | 2016-12-02 07:58 | Physician Advisory Note ---
Physician Advisor ProgressNote .: Pursuant to the plan for Pending Sale To [facility], I have reviewed the medical record for this patient. Physician Advisor Statement: Nice documentation of hypernatremia, hypercalcemia, concern for malignancy, details on wt loss/anorexia. Possible documentation opportunities if attending agrees: 1. "Acute Kidney Insufficiency due to intravascular volume depletion" 2. "Anemia of Chronic Blood Loss, due to Hematuria, which is suspected due to bladder CA" - or - - ? "Anemia of Acute on Chronic Blood Loss, due to Hematuria, which is suspected due to bladder CA" [Hgb 11's in 2012, 2016, & on Aug 21 & 2016 ] 3. "CKD stage 3-4" (GFRs 20s-40s over past few years) 4. See below - Inpt status appropriate. 5. "underweight with protein-calorie malnutrition [state mild, mod, or severe] with BMI 14.6, ..." - have already documented almost complete loss of appetite to point of going days without eating, 25# unintentional wt loss over the past 3-4mo, plan for floriculture teacher consult. [if possible, give specifics on intake, loss of SQ fat & muscle mass, diminished hand certification and selection specialist strength, & clinical importance such as (B) modified diet or supplements ordered, (C) additional labs ordered, (D) prolonged wound healing time, (E) delayed infxn clearance] 6. ? "possible ACS" or "Acute ischemic heart disease" or ... 7. "SIRS on admission, likely due to severity of intravascular volume depletion ..." As always, if concerned about any unstable VS or abnormal labs, please comment on them - what bad things they might indicate, why they concern you - & note what doing about them. Please also document each day the potential clinical problems you are concerned could occur if pt not kept in hospital for tx at this time. (These points are ybarra - if present in each note, attending's status decision should be sufficiently supported.) Discussion: 75yo male w/ chronic co-morbidities including HTN, HLD, prostate CA w/ prostatectomy & post-op XRT, gout, mild depression x 3mo. - presented 5/8 PM to ED w/6mo of intermittent palpitations, general weakness progressive to the point he could no longer perform own ADLs, wt loss, lack of appetite severe, gross hematuria x 8+mo, mild aching in low abd, mild hypercalcemia in July, s/p CT in Jul showing soft tissue fullness on Rt side of bladder but apparently not following up with dr about this (+) BMI 14.6, HR 122, RR11-16, BP 142/87, WBC 14.3, Hgb 9.7, plt 624, Na 147.3, BUN 44, Cr 2.04, glc 133, Ca 12.4, Mag 2.8, Phos 4.6, trop 0.05 ED gave 1L NS. Attending ordered 1/2NS @200, I/O's, orthostatics, falls precautions, tele monitoring, U/A, iPTH, f/u labs, q4h VS, PT eval, onc & floriculture teacher consults, HCTZ , Atenolol, Prinivil... Status: Pt with multiple symptom dx.s such as anorexia, dehydration, abnormal labs, generalized weakness, wt loss, anemia, FTT is most appropriate for Outpt Obs status to start. However, a pt with multiple significant electrolyte abnormalities that are not all resolved the next day, multiple findings very concerning for undiagnosed malignancy with ongoing gross hematuria (with significantly worsened anemia), severe malnutrition/underweight with no appetite, & worsening trop I's is appropriate to change to Inpatient status. Ongoing tx & monitoring in inpatient hospital setting medically reasonable & necessary to protect pt's health, safety, & medical condition. Thanks for your help with documentation accuracy/specificity improvement! Annemarie Hernandez MD [facility] Physician Advisor, Fellow of Hospital Medicine
--- NOTE | 2016-12-02 08:10 | PDOC CONSULTATION ---
Consultation Consult Date: 12/02/16 Attending physician:: BINU VILLANUEVA Consult reason:: Wt loss, hx prostate cancer, hematuria, anemia History of Present Illness Admission Date/PCP: 12/01/16 23:00 Patient complains of: wt loss, bone pain, fatigue History of Present Illness: 75 y/o M w/ known hx prostate ca s/p prostatectomy 2001 (here at [facility], done by Dr. Marshall), s/p XRT in [place] after that, no adjuvant ADT. Was followed with routine PSAs since then. But in our system last PSA was 2012 and nml. Has had 1.5 yr hx of hematuria, followed prev by Dr. England who did cystoscopy last year w/ urethral stricture noted s/p dilation. Pt has had hematuria w/ clots passed for at least 6-8 months now. Increasing weakness difficulty walking. Having increased bone pain specifically R hip and low back. He tells me he had colonoscopy and EGD done in last 3-[address] Melendrez (done in office). He also c/o of wt loss x 20-30# x 6m. Upon present he had hypercalcemia, was given aggressive hydration over last 24 hrs. Ca decreased today. Also renal failure cr 1.8 on admit down to 1.7 today. Has known CKD, followed by Dr. Tena. Past Medical History Cardiac Medical History: Reports: Hyperlipidema, Hypertension Denies: Congestive Heart Failure, DVT, Myocardial Infarction, Pulmonary Embolism Pulmonary Medical History: Denies: Asthma, Chronic Obstructive Pulmonary Disease (COPD), Sleep Apnea EENT Medical History: Denies: Eyes, Ears, Throat Neurological Medical History: Denies: Hemorrhagic CVA, Ischemic CVA, Seizures Endocrine Medical History: Reports: Other - Weight loss Denies: Diabetes Mellitus Type 1, Diabetes Mellitus Type 2, Hyperthyroidism, Hypothyroidism Renal/ Medical History: Reports: Other - Please see malignancy medical history. Several month history hematuria. Malignancy Medical History: Reports: Other - Prostate cancer GI Medical History: Denies: Cirrhosis, Gastroesophageal Reflux Disease, Hepatitis, Peptic Ulcer Disease Musculoskeltal Medical History: Reports: Gout Skin Medical History: Reports: None Psychiatric Medical History: Reports: Depression Denies: Alcohol Dependency, General Anxiety Disorder, Substance Abuse, Tobacco Dependency Hematology: Reports: None Infectious Medical History: Denies: Clostridium Difficile, Hepatitis B, Hepatitis C, Methicillin- Resistant Staph Aureus Past Surgical History Past Surgical History: Reports: Other - Prostatectomy, 2002, with postoperative radiation treatment for carcinoma. Social History Information Source: Patient Lives with: Alone Smoking Status: Never Smoker Frequency of Alcohol Use: None Drugs: None Hx Prescription Drug Abuse: No - Advance Directive Resuscitation Status: Full Code Family History Family History: Reviewed & Not Pertinent Parental Family History Reviewed: Yes Children Family History Reviewed: Yes Sibling(s) Family History Reviewed.: Yes Medication/Allergy Home Medications: Aspirin [Ecotrin 81 mg EC Tablet] 81 mg PO DAILY 03/05/13 Atenolol [Tenormin 50 Mg Tablet] 50 mg PO DAILY 03/05/13 Lisinopril [Prinivil 10 mg Tablet] 10 mg PO DAILY 03/05/13 Allopurinol [Zyloprim 100 mg Tablet] 200 mg PO DAILY 12/26/15 Cholecalciferol (Vitamin D3) [Vitamin D3 2000 unit Tablet] 2,000 mg PO DAILY 08/11 Hydrochlorothiazide 12.5 mg PO DAILY 12/26/15 Allergies/Adverse Reactions: Penicillins Allergy (Verified 08/24/16 12:42) Review of Systems Constitutional: PRESENT: anorexia, fatigue, weakness, weight loss Cardiovascular: PRESENT: dyspnea on exertion, palpitations Gastrointestinal: PRESENT: abdominal pain Genitourinary: PRESENT: hematuria Musculoskeletal: PRESENT: back pain Neurological: PRESENT: lack of coordination, weakness Physical Exam Vital Signs: Temp Pulse Resp BP Pulse Ox 98.0 F 92 18 148/74 H 100 12/02/16 02:25 12/02/16 02:25 12/02/16 02:25 12/02/16 02:25 12/02/16 02:25 Intake & Output 12/01/16 12/02/16 12/03/16 06:59 06:59 06:59 Intake Total 220 Output Total 100 Balance 120 Weight 46.2 kg General appearance: PRESENT: no acute distress, well-developed, well-nourished Head exam: PRESENT: atraumatic, normocephalic Eye exam: PRESENT: conjunctiva pink, EOMI, PERRLA. ABSENT: scleral icterus Ear exam: PRESENT: normal external ear exam Mouth exam: PRESENT: moist, tongue midline Neck exam: ABSENT: carotid bruit, JVD, lymphadenopathy, thyromegaly Respiratory exam: PRESENT: clear to auscultation celi. ABSENT: rales, rhonchi, wheezes Cardiovascular exam: PRESENT: RRR. ABSENT: diastolic murmur, rubs, systolic murmur Pulses: PRESENT: normal dorsalis pedis pul Vascular exam: PRESENT: normal capillary refill GI/Abdominal exam: PRESENT: normal bowel sounds, soft. ABSENT: distended, guarding, mass, organolmegaly, rebound, tenderness Rectal exam: PRESENT: deferred Extremities exam: PRESENT: full ROM. ABSENT: calf tenderness, clubbing, pedal edema Neurological exam: PRESENT: alert, awake, oriented to person, oriented to place , oriented to time, oriented to situation, CN II-XII grossly intact. ABSENT: motor sensory deficit Psychiatric exam: PRESENT: appropriate affect, normal mood. ABSENT: homicidal ideation, suicidal ideation Skin exam: PRESENT: dry, intact, warm. ABSENT: cyanosis, rash Results Laboratory Results: 12/02/16 06:33 12/02/16 06:33 12/02/16 12/02/16 12/02/16 00:20 06:33 06:33 WBC 10.6 H RBC 3.00 L Hct 23.4 L MCV 78 L MCH 25.4 L MCHC 32.6 RDW 14.3 H Plt Count 427 Seg Neutrophils % 80.3 H Lymphocytes % 12.1 L Monocytes % 6.3 Eosinophils % 0.6 Basophils % 0.7 Absolute Neutrophils 8.5 H Absolute Lymphocytes 1.3 Absolute Monocytes 0.7 Absolute Eosinophils 0.1 Absolute Basophils 0.1 Sodium 146.4 H 141.9 Potassium 4.1 4.2 Chloride 110 H 110 H Carbon Dioxide 24 22 Anion Gap 12 10 BUN 40 H 39 H Creatinine 1.75 H 1.53 H Est GFR ( Amer) 46 L 54 L Est GFR (Non-Af Amer) 38 L 44 L Glucose 105 95 Calcium 11.2 H 10.3 H 12/02/16 12/02/16 00:20 06:33 Troponin I 0.065 0.089 Impressions: Chest X-Ray 12/01/16 19:46 IMPRESSION: NO ACUTE RADIOGRAPHIC FINDING IN THE CHEST. Assessment & Plan - Diagnosis (1) Prostate cancer Is this a current diagnosis for this admission?: YesPlan: Pt w/ weakness, wt loss, will do metastatic w/u w/ CT C/A/P, oral contrast only given cr elevation, also bone scan, PSA and CEA. (2) Hypercalcemia Is this a current diagnosis for this admission?: YesPlan: Unknown cause but maybe malignancy, con't hydration. F/u w/ as above. Hold on bisphosphonate for now since mental status ok and ca coming down w/ hydration. (3) Anemia Qualifiers: Anemia type: unspecified type Qualified Code(s): D64.9 - Anemia, unspecified Is this a current diagnosis for this admission?: YesPlan: Def w/u pending, but likely 2nd hematuria, anemia chronic dx from CKD. Hb 7 range today. Hold on transfusion today, will likely order tomorrow based on labs. (4) Weight loss, unintentional Is this a current diagnosis for this admission?: YesPlan: Metastatic w/u as above - Time Time Spent: Greater than 70 Minutes Critical Time spent with patient: 35 or more minutes Disposition: D/w hospitalist team on w/u as above. - Inpatient Certification Based on my medical assessment, after consideration of the patient's comorbidities, presenting symptoms, or acuity I expect that the services needed warrant INPATIENT care.: Yes I certify that my determination is in accordance with my understanding of Medicare's requirements for reasonable and necessary INPATIENT services [42 CFR 412.3e].: Yes Medical Necessity: Failure to Improve With Outpatient Therapy, Need For IV Fluids, Need for Pain Control, Risk of Complication if Not Cared For in Hospital
[2016-12-02 09:32] LABS: HEMOGLOBIN 7.6 g/dL (13.5-17.0)
[2016-12-02] MEDS: ASPIRIN 81 MG TABLET, ENT COATED PO SCH (09:35)
[2016-12-02] MEDS: DOCUSATE SODIUM 100 MG CAPSULE PO SCH (09:35)
[2016-12-02] MEDS: CHOLECALCIFEROL (D3) 1,000 UNIT TABLET PO SCH (09:35)
[2016-12-02] MEDS: HYDROCHLOROTHIAZIDE 12.5 MG CAPSULE PO SCH (09:36)
[2016-12-02] MEDS: LISINOPRIL 10 MG TABLET PO SCH (09:37)
[2016-12-02] MEDS: ATENOLOL 50 MG TABLET PO SCH (09:39)
[2016-12-02] MEDS ORDERED: ALLOPURINOL 100 MG TABLET PO SCH (10:00)
[2016-12-02 10:15] LABS: CARCINOEMBRYONIC ANTIGEN 1.6 ng/mL (<3.0)
--- NOTE | 2016-12-02 10:22 | PDOC PROGRESS REPORT ---
Subjective Progress Note for:: 12/02/16 Subjective:: This is a follow-up visit for acute anemia of blood loss. I've spoken today with hematology service in regards to the patient's current condition. He presents here with cachexia, weight loss, hematuria with blood clots. Patient was admitted last night and initially had a hemoglobin of 9.7. He reports that he is having blood clots at home every 7-10 days. His last reported blood clot was about 7 days ago. He reports that he hasn't eaten in the last 60 days. He is been nibbling on things such as fruit cocktail here and there. For the last 30 days he is had no solid food per his report. He states that he has been drinking ensure and water. He denies having any difficulty swallowing and states that at times he just has a lack of desire. We had a long discussion about his history guarding his prostate. According to the patient, in his discussion with his urologist it was decided to pursue the etiology of his weight loss rather than undergo further cystoscopy. I share with the patient my concerns of underlying cancer to account for his weight loss, cachexia, lack of appetite and hematuria. I have explained that he is lost approximately 2 units of blood overnight. He denies seeing any chuy blood in his urine. Currently he denies any chest pain shortness of breath Physical Exam Vital Signs: Temp Pulse Resp BP Pulse Ox 98.3 F 92 18 141/76 H 100 12/02/16 07:11 12/02/16 07:11 12/02/16 07:11 12/02/16 07:11 12/02/16 07:11 Intake & Output 12/01/16 12/02/16 12/03/16 06:59 06:59 06:59 Intake Total 220 Output Total 100 Balance 120 Weight 46.2 kg PHYSICAL EXAM: GENERAL: This is a well-developed, cachectic appearing -[place]ican male resting in no acute distress. HEENT: Normocephalic atraumatic. Trachea is midline. Temporal wasting is evident. HEART: Regular rate and rhythm. No murmurs rubs or gallops. LUNGS: Clear to auscultation bilaterally with equal rise and fall of the chest. ABDOMEN: Soft, nontender, nondistended with normoactive bowel sounds EXTREMITIES: No clubbing cyanosis or edema. 2+ peripheral pulses. Small- caliber extremities with muscle wasting. NEURO: Awake, alert, oriented x3. Cranial nerves II through XII grossly intact. PSYCH: Normal affect. Results Laboratory Results: 12/02/16 06:33 12/02/16 06:33 12/02/16 12/02/16 12/02/16 00:20 06:33 06:33 WBC 10.6 H RBC 3.00 L Hgb 7.6 L D Hct 23.4 L MCV 78 L MCH 25.4 L MCHC 32.6 RDW 14.3 H Plt Count 427 Seg Neutrophils % 80.3 H Lymphocytes % 12.1 L Monocytes % 6.3 Eosinophils % 0.6 Basophils % 0.7 Absolute Neutrophils 8.5 H Absolute Lymphocytes 1.3 Absolute Monocytes 0.7 Absolute Eosinophils 0.1 Absolute Basophils 0.1 Retic Count (auto) Absolute Retic Sodium 146.4 H 141.9 Potassium 4.1 4.2 Chloride 110 H 110 H Carbon Dioxide 24 22 Anion Gap 12 10 BUN 40 H 39 H Creatinine 1.75 H 1.53 H Est GFR ( Amer) 46 L 54 L Est GFR (Non-Af Amer) 38 L 44 L Glucose 105 95 Calcium 11.2 H 10.3 H 12/02/16 09:00 WBC RBC Hgb Hct MCV MCH MCHC RDW Plt Count Seg Neutrophils % Lymphocytes % Monocytes % Eosinophils % Basophils % Absolute Neutrophils Absolute Lymphocytes Absolute Monocytes Absolute Eosinophils Absolute Basophils Retic Count (auto) 1.36 Absolute Retic 0.039 Sodium Potassium Chloride Carbon Dioxide Anion Gap BUN Creatinine Est GFR ( Amer) Est GFR (Non-Af Amer) Glucose Calcium 12/02/16 12/02/16 00:20 06:33 Troponin I 0.065 0.089 Impressions: Chest X-Ray 12/01/16 19:46 IMPRESSION: NO ACUTE RADIOGRAPHIC FINDING IN THE CHEST. Assessment & Plan - Diagnosis (1) Anemia Qualifiers: Anemia type: other cause Is this a current diagnosis for this admission?: YesPlan: Anemia of acute blood loss. Likely secondary to hematuria and underlying history of prostate cancer. Believe the patient needs urology consult with likely cystoscopy. His hemoglobin has dropped from 9 down to 7. We will recheck H&H later on this afternoon. I suspect that the patient will need a transfusion. Hematology oncology has started then by to evaluate the patient. I have recommended transfusion tomorrow based on his results. If he is dropped below 7 this afternoon we will transfuse today. I have great concern that the patient has underlying cancer to account for the anemia that we see. Indeed, some of the anemia could be secondary to continued IV fluids, as the patient looks to have been hemoconcentrated from dehydration. (2) Prostate cancer Is this a current diagnosis for this admission?: YesPlan: Patient is status post radiation therapy. He is quite cachectic on exam. I do have concerns that his prostate cancer has advanced. He has seen hematology/ oncology earlier today. PSA is being ordered. CT of the abdomen and pelvis is being ordered. (3) Hypercalcemia Is this a current diagnosis for this admission?: YesPlan: Much improved with IV fluids. He continues on IV fluid. (4) Acute renal failure superimposed on stage 3 chronic kidney disease Qualifiers: Acute renal failure type: unspecified Qualified Code(s): N17.9 - Acute kidney failure, unspecified; N18.3 - Chronic kidney disease, stage 3 ( moderate) Plan: Continue IV fluids. The patient has had very good recovery of kidney function. This is most likely secondary to dehydration from decreased by mouth intake. (5) Anorexia Is this a current diagnosis for this admission?: YesPlan: Patient is on regular diet. Encourage him to eat to his heart's content. We' ll consult dietary. (6) Hypernatremia Is this a current diagnosis for this admission?: YesPlan: Resolved. Likely secondary from decreased by mouth and dehydration with hemoconcentration - Time Time Spent with patient: 25-34 minutes - Inpatient Certification Medical Necessity: Significant Comorbidiites Make Outpatient Treatment Too Risky , Need For IV Fluids
[2016-12-02 10:49] LABS: FOLATE 5.67 ng/mL (>2.76)
[2016-12-02] MEDS: HEPARIN SOD (PORCINE) 5,000 UNIT/ML 1 ML SYRINGE SUBCUT SCH ×2 (11:00→22:12)
[2016-12-02 11:17] LABS: PROSTATE SPECIFIC ANTIGEN < 0.064 ng/mL (<4.00)
[2016-12-02 16:09] LABS: ABSOLUTE BASOPHILS # (AUTO) 0.1 10^3/uL (0.0-0.2); ABSOLUTE EOSINOPHILS # (AUTO) 0.1 10^3/uL (0.0-0.6); ABSOLUTE LYMPHOCYTES (AUTO) 1.1 10^3/uL (0.5-4.7); ABSOLUTE MONOCYTES (AUTO) 0.6 10^3/uL (0.1-1.4); ABSOLUTE NEUT (AUTO) 9.5 10^3/uL (1.7-8.2); BASOPHILS % (AUTO) 0.7 % (0-2); EOSINOPHILS % (AUTO) 1.1 % (0-6); HEMATOCRIT 24.3 % (37.9-51.0); HGB HCT DIFFERENCE -0.9; LYMPHOCYTES % (AUTO) 9.9 % (13-45); MEAN CORPUSCULAR HEMOGLOBIN 24.9 pg (27.0-33.4); MEAN CORPUSCULAR HGB CONC 32.1 g/dL (32.0-36.0); MEAN CORPUSCULAR VOLUME 78 fl (80-97); MONOCYTES % (AUTO) 5.6 % (3-13); RED BLOOD COUNT 3.13 10^6/uL (4.35-5.55); RED CELL DISTRIBUTION WIDTH 14.6 % (11.5-14.0); SEGMENTED NEUTROPHILS % (AUTO) 82.7 % (42-78); WHITE BLOOD COUNT 11.4 10^3/uL (4.0-10.5)
[2016-12-02 16:12] LABS: HEMOGLOBIN 7.8 g/dL (13.5-17.0)
[2016-12-03 01:17] LABS: APPEARANCE,URINE CLOUDY; BILIRUBIN,URINE NEGATIVE (NEGATIVE); GLUCOSE, URINE NEGATIVE (NEGATIVE); KETONES,URINE NEGATIVE (NEGATIVE); LEUKOCYTE ESTERASE,URINE LARGE (NEGATIVE); NITRITE,URINE NEGATIVE (NEGATIVE); PROTEIN,URINE 100 mg/dL (NEGATIVE); URINE SPECIFIC GRAVITY 1.011; UROBILINOGEN,URINE NEGATIVE mg/dL (<2.0)
[2016-12-03] MEDS ORDERED: DIPHENHYDRAMINE HCL 25 MG CAPSULE PO SCH (08:00)
[2016-12-03] MEDS ORDERED: FUROSEMIDE 20 MG TABLET PO SCH (08:00)
--- NOTE | 2016-12-03 08:06 | PDOC PROGRESS REPORT ---
Subjective Progress Note for:: 12/03/16 Subjective:: No acute overnight, did get up with the help of nursing, poor urine output, reviewed CT imaging. CT abdomen indicated a large mass along the right bladder trigone, right lateral bladder wall, up to 9 cm in largest dimension, occludes distal right ureter causing right hydronephrosis and renal atrophy. There is right pelvic sidewall involvement invading the right obturator externus muscle. There is no adenopathy. There is no lung lesions. No other organ involvement. Bone scan negative for bone involvement. Physical Exam Vital Signs: Temp Pulse Resp BP Pulse Ox 98.3 F 73 16 122/58 L 100 12/02/16 20:16 12/03/16 02:00 12/02/16 20:16 12/03/16 00:31 12/03/16 00:31 Intake & Output 12/02/16 12/03/16 12/04/16 06:59 06:59 06:59 Intake Total 3300 Output Total 700 Balance 2600 General appearance: PRESENT: no acute distress, well-developed, well-nourished Head exam: PRESENT: atraumatic, normocephalic Eye exam: PRESENT: conjunctiva pink, EOMI, PERRLA. ABSENT: scleral icterus Ear exam: PRESENT: normal external ear exam Mouth exam: PRESENT: moist, tongue midline Neck exam: ABSENT: carotid bruit, JVD, lymphadenopathy, thyromegaly Respiratory exam: PRESENT: clear to auscultation celi. ABSENT: rales, rhonchi, wheezes Cardiovascular exam: PRESENT: RRR. ABSENT: diastolic murmur, rubs, systolic murmur Pulses: PRESENT: normal dorsalis pedis pul Vascular exam: PRESENT: normal capillary refill GI/Abdominal exam: PRESENT: normal bowel sounds, soft. ABSENT: distended, guarding, mass, organolmegaly, rebound, tenderness Rectal exam: PRESENT: deferred Extremities exam: PRESENT: full ROM. ABSENT: calf tenderness, clubbing, pedal edema Neurological exam: PRESENT: alert, awake, oriented to person, oriented to place , oriented to time, oriented to situation, CN II-XII grossly intact. ABSENT: motor sensory deficit Psychiatric exam: PRESENT: appropriate affect, normal mood. ABSENT: homicidal ideation, suicidal ideation Skin exam: PRESENT: dry, intact, warm. ABSENT: cyanosis, rash Results Laboratory Results: 12/02/16 15:37 12/02/16 12/03/16 15:37 00:41 WBC 11.4 H RBC 3.13 L Hgb 7.8 L Hct 24.3 L MCV 78 L MCH 24.9 L MCHC 32.1 RDW 14.6 H Plt Count 458 H Seg Neutrophils % 82.7 H Lymphocytes % 9.9 L Monocytes % 5.6 Eosinophils % 1.1 Basophils % 0.7 Absolute Neutrophils 9.5 H Absolute Lymphocytes 1.1 Absolute Monocytes 0.6 Absolute Eosinophils 0.1 Absolute Basophils 0.1 Urine Color YELLOW Urine Appearance CLOUDY Urine pH 7.0 Ur Specific [place] 1.011 Urine Protein 100 H Urine Glucose (UA) NEGATIVE Urine Ketones NEGATIVE Urine Blood LARGE H Urine Nitrite NEGATIVE Ur Leukocyte Esterase LARGE H Urine WBC (Auto) >182 Urine RBC (Auto) 107 Impressions: Chest X-Ray 12/01/16 19:46 IMPRESSION: NO ACUTE RADIOGRAPHIC FINDING IN THE CHEST. Abdomen/Pelvis CT 12/02/16 00:00 IMPRESSION: Large bladder mass worrisome for tumor primary bladder malignancy. No CT evidence of distant metastatic disease over the chest abdomen and pelvis Body Scan Nuclear Medicine 12/02/16 00:00 IMPRESSION: NORMAL BONE SCAN. Chest CT 12/02/16 00:00 IMPRESSION: Large bladder mass worrisome for tumor primary bladder malignancy. No CT evidence of distant metastatic disease over the chest abdomen and pelvis Assessment & Plan - Diagnosis (1) Prostate cancer Is this a current diagnosis for this admission?: YesPlan: Seems to be still resolved, PSA was normal, does not appear to be recurrent. (2) Hypercalcemia Is this a current diagnosis for this admission?: YesPlan: Probably related to the renal dysfunction, no bone metastasis. (3) Anemia Qualifiers: Anemia type: iron deficiency Iron deficiency anemia type: chronic blood loss Qualified Code(s): D50.0 - Iron deficiency anemia secondary to blood loss (chronic) Is this a current diagnosis for this admission?: YesPlan: Hemoglobin 7.8, ferritin and iron saturation low, so it is related to chronic blood loss and some chronic kidney disease. Plan for transfusion today. (4) Weight loss, unintentional Is this a current diagnosis for this admission?: YesPlan: This is related to malignancy, he has a primary bladder tumor see below for further details. 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 Invading the right obturator muscle so it would be locally invasive probably at least a T4 lesion. He needs urology evaluation. I believe we need to transfer him to [place]. I will discuss this with hospitalist team. (6) UTI (urinary tract infection) with pyuria Is this a current diagnosis for this admission?: YesPlan: I will discuss this with hospitalist team, in review of the UA are was a leukocyte esterase positive, but no urine culture sent so I'll discuss with hospitalist team to send urine culture and start him on antibiotics. - Time Time Spent with patient: 35 or more minutes Critical Time spent with patient: 35 or more minutes Anticipated discharge: [facility] - Inpatient Certification Based on my medical assessment, after consideration of the patient's comorbidities, presenting symptoms, or acuity I expect that the services needed warrant INPATIENT care.: Yes I certify that my determination is in accordance with my understanding of Medicare's requirements for reasonable and necessary INPATIENT services [42 CFR 412.3e].: Yes Medical Necessity: Need For IV Fluids, Need for Surgery
[2016-12-03] MEDS ORDERED: FUROSEMIDE INJ/PF 20 MG/2 ML SDV IV PRN (08:08)
[2016-12-03] MEDS ORDERED: ACETAMINOPHEN 325 MG TABLET PO SCH (08:15)
[2016-12-03] MEDS: HEPARIN SOD (PORCINE) 5,000 UNIT/ML 1 ML SYRINGE SUBCUT SCH ×2 (09:29→22:18)
[2016-12-03] MEDS: CHOLECALCIFEROL (D3) 1,000 UNIT TABLET PO SCH (09:29)
[2016-12-03] MEDS: ASPIRIN 81 MG TABLET, ENT COATED PO SCH (09:29)
[2016-12-03] MEDS: HYDROCHLOROTHIAZIDE 12.5 MG CAPSULE PO SCH (09:33)
[2016-12-03] MEDS: DOCUSATE SODIUM 100 MG CAPSULE PO SCH (09:33)
[2016-12-03] MEDS: ATENOLOL 50 MG TABLET PO SCH (09:33)
[2016-12-03] MEDS: LISINOPRIL 10 MG TABLET PO SCH (09:33)
[2016-12-03] MEDS: LEVOFLOXACIN 250 MG TABLET PO SCH (10:59)
--- NOTE | 2016-12-03 12:00 | PDOC DISCHARGE SUMMARY ---
General - Admit/Disc Date/PCP Admission Date/Primary Care Provider: 12/02/16 10:02 Discharge Date: 12/03/16 - Discharge Diagnosis (1) Anemia Is this a current diagnosis for this admission?: YesSummary: Patient has anemia of chronic disease and likely from slow blood loss due to hematuria and underlying cancer.. He has received resuscitative fluids here for his acute renal failure and some the drop in hemoglobin may be due to dilution. He is going to be transfused 2 units prior to transfer. (2) Prostate cancer Is this a current diagnosis for this admission?: YesSummary: He is status post prostatectomy with radiation therapy out in [facility]. He did not receive adjuvant chemotherapy. This was diagnosed in 2001. His last PSA was in 2012 and was normal. (3) Hypercalcemia Is this a current diagnosis for this admission?: YesSummary: Patient presented with elevated calcium of 2. With fluid resuscitation and is now down to 10. This is suspected to be due to his underlying bladder cancer. (4) Acute renal failure superimposed on stage 3 chronic kidney disease Summary: Likely secondary to decreased by mouth as well as partially obstructing mass. Resuscitation but his creatinine of 2 down to 1.5. (5) Anorexia Is this a current diagnosis for this admission?: YesSummary: Likely secondary to underlying cancer as well as decreased by mouth. Has been living off of ensure at home. I have prescribed Megace. (6) Hypernatremia Is this a current diagnosis for this admission?: YesSummary: Likely secondary to decreased by mouth and volume contraction. Resolved (7) Bladder mass Summary: Bladder mass was found on CT of the abdomen and pelvis. She will be transferred to outside hospital for further intervention and workup. (8) Severe protein-calorie malnutrition Summary: Secondary to decrease by mouth intake. The patient only drinks ensure and hasn' t eaten a full meal in 60 days. - Additional Information Resuscitation Status: Full Code Home Medications: Allopurinol [Zyloprim 100 mg Tablet] 200 mg PO DAILY 12/02/16 Aspirin [Ecotrin 81 mg EC Tablet] 81 mg PO DAILY 12/02/16 Atenolol [Tenormin 50 mg Tablet] 50 mg PO DAILY 12/02/16 Atorvastatin Calcium [Lipitor 20 mg Tablet] 20 mg PO QHS 12/02/16 Hydrochlorothiazide [Hydrodiuril 12.5 mg Capsule] 12.5 mg PO DAILY 12/02/16 Lisinopril [Prinivil 5 mg Tablet] 5 mg PO DAILY 12/02/16 Levofloxacin [Levaquin 250 mg Tablet] 250 mg PO DAILY@1100 tablet 12/03/16 Megestrol Acetate [Megace 20 mg Tablet] 20 mg PO DAILY tablet 12/03/16 History of Present Illness History of Present Illness: History of present illness per admitting physician Dr. Gipson. History of Present Illness Admission Date/PCP: 12/01/16 21:37 PCP None Cards Sara Patient complains of: palpitations, weakness History of Present Illness: DOMENIC ESQUEDA is a 75 year old -[place]ian male with underlying hypertension, gout, mild depression for the last 3 months, without suicidal or homicidal ideation, who presents to the emergency room for evaluation of above complaints. Patient has been discussed with emergency room physician who evaluated the patient. Of note, patient himself is somewhat of a poor historian. Describes a several month history of above complaints. Over the last 3 or 4 months, he's lost approximately 25 pounds, unintentional. Very poor appetite; states at times he will go "days" without eating. Generalized weakness has progressed to the point where he finds it difficult even to perform his normal activities of daily living. No fall. He's had mild associated lower abdominal discomfort, but no chest pain. Abdominal discomfort is aching in quality, intermittent. Nothing in particular makes it worse. No associated nausea vomiting, fever chills, or chest pain. No diarrhea or dysuria. Status post prostatectomy in 2001 with postoperative radiation treatment. December of last year, he underwent cystoscopy with incision of bladder neck contracture. Operative note reviewed. Describes approximately an 8 month history of persistent hematuria. CT scan in July of this year for evaluation of same revealed soft tissue fullness on the right side of the bladder. Scan was ordered by Dr. Dwyer. Patient states he's not sure if he saw Dr. Dwyer afterwards about this. Again, patient is somewhat of a poor historian. States when he wakes up in the morning, he is able to void a stream of urine. For the rest the day, however, he simply dribbles. No history of atrial fibrillation or atrial flutter. Cardiac history basically negative other than hypertension, with no prior myocardial infarction, congestive heart failure, pulmonary embolus, or DVT. Hospital Course Hospital Course: His hospital stay the patient was seen by hematology/oncology. He was sent for CT of the chest abdomen and pelvis which showed a large bladder mass. Was noted on his urinalysis at the patient had elevated leukocyte esterase and malodorous urine at the bedside. He also had a low urinary output suspected to be due to partial shocks from his bladder mass. At one point he was straight cathetered with urine out. There's been no chuy blood in the patient's urine. He states to me that it only occurs every 7-10 days or so ultimately it was felt that the patient needed transfer to [facility] for cystoscopy and possibly cystectomy. No urologist is available here at [facility]. Patient was also noted to have acute renal failure on presentation he was resuscitated with IV fluids. Creatinine initially was 2 and is now down to 1.5 at discharge. Patient was also started on Levaquin by mouth for urinary tract infection. Dietary was also consult while the patient was here because he is grossly underweight, emaciated and cachectic. He is only eating bites of food while here. This is consistent with his report of decreased by mouth intake as an outpatient. In addition to his comorbid conditions the patient was also noted to be anemic with a hemoglobin of 9.6. After fluid resuscitation his hemoglobin dropped to 7.6. He currently has orders for 2 units of blood to be transfused. At the bedside patient currently has no complaints. He expresses Understanding of his diagnosis and need for transfer. I called [facility] and made arrangements for transfer to the hospitalist service. I spoke with Dr. Vázquez who agreed to take him on his service. In addition to this I spoke with Dr. Spear with urology who will care for the patient once he arrives. Physical Exam Vital Signs: Temp Pulse Resp BP Pulse Ox 98.8 F 42 L 18 100/45 L 95 12/03/16 07:32 12/03/16 07:32 12/03/16 07:32 12/03/16 07:32 12/03/16 07:32 Intake & Output 12/02/16 12/03/16 12/04/16 06:59 06:59 06:59 Intake Total 3300 Output Total 700 Balance 2600 PHYSICAL EXAM: GENERAL: This is a well-developed, cachectic appearing -[place]ian male resting in no acute distress. HEENT: Normocephalic atraumatic. Trachea is midline. Temporal wasting is evident. HEART: Regular rate and rhythm. No murmurs rubs or gallops. LUNGS: Clear to auscultation bilaterally with equal rise and fall of the chest. ABDOMEN: Soft, nontender, nondistended with normoactive bowel sounds EXTREMITIES: No clubbing cyanosis or edema. 2+ peripheral pulses. Small- caliber extremities with muscle wasting. NEURO: Awake, alert, oriented x3. Cranial nerves II through XII grossly intact. PSYCH: Normal affect. Results Laboratory Results: 12/02/16 15:37 12/02/16 12/03/16 12/03/16 15:37 00:41 08:35 WBC 11.4 H RBC 3.13 L Hgb 7.8 L Hct 24.3 L MCV 78 L MCH 24.9 L MCHC 32.1 RDW 14.6 H Plt Count 458 H Seg Neutrophils % 82.7 H Lymphocytes % 9.9 L Monocytes % 5.6 Eosinophils % 1.1 Basophils % 0.7 Absolute Neutrophils 9.5 H Absolute Lymphocytes 1.1 Absolute Monocytes 0.6 Absolute Eosinophils 0.1 Absolute Basophils 0.1 Urine Color YELLOW Urine Appearance CLOUDY Urine pH 7.0 Ur Specific [place] 1.011 Urine Protein 100 H Urine Glucose (UA) NEGATIVE Urine Ketones NEGATIVE Urine Blood LARGE H Urine Nitrite NEGATIVE Ur Leukocyte Esterase LARGE H Urine WBC (Auto) >182 Urine RBC (Auto) 107 Blood Type O POSITIVE Antibody Screen NEGATIVE Impressions: Chest X-Ray 12/01/16 19:46 IMPRESSION: NO ACUTE RADIOGRAPHIC FINDING IN THE CHEST. Abdomen/Pelvis CT 12/02/16 00:00 IMPRESSION: Large bladder mass worrisome for tumor primary bladder malignancy. No CT evidence of distant metastatic disease over the chest abdomen and pelvis Body Scan Nuclear Medicine 12/02/16 00:00 IMPRESSION: NORMAL BONE SCAN. Chest CT 12/02/16 00:00 IMPRESSION: Large bladder mass worrisome for tumor primary bladder malignancy. No CT evidence of distant metastatic disease over the chest abdomen and pelvis Qualifiers PATEINT BEING DISCHARGED WITH ANY OF THE FOLLOWING DIAGNOSIS?: No
[2016-12-03] MEDS ORDERED: MEGESTROL ACETATE 20 MG TABLET PO ONE (13:00)
[2016-12-03 20:53] LABS: ABSOLUTE BASOPHILS # (AUTO) 0.1 10^3/uL (0.0-0.2); ABSOLUTE EOSINOPHILS # (AUTO) 0.1 10^3/uL (0.0-0.6); ABSOLUTE LYMPHOCYTES (AUTO) 1.2 10^3/uL (0.5-4.7); ABSOLUTE MONOCYTES (AUTO) 0.8 10^3/uL (0.1-1.4); ABSOLUTE NEUT (AUTO) 8.9 10^3/uL (1.7-8.2); BASOPHILS % (AUTO) 0.7 % (0-2); EOSINOPHILS % (AUTO) 1.3 % (0-6); HEMATOCRIT 28.9 % (37.9-51.0); HEMOGLOBIN 9.5 g/dL (13.5-17.0); HGB HCT DIFFERENCE -0.4; LYMPHOCYTES % (AUTO) 10.5 % (13-45); MEAN CORPUSCULAR HEMOGLOBIN 25.4 pg (27.0-33.4); MEAN CORPUSCULAR HGB CONC 32.7 g/dL (32.0-36.0); MEAN CORPUSCULAR VOLUME 78 fl (80-97); MONOCYTES % (AUTO) 6.9 % (3-13); RED BLOOD COUNT 3.73 10^6/uL (4.35-5.55); RED CELL DISTRIBUTION WIDTH 14.7 % (11.5-14.0); SEGMENTED NEUTROPHILS % (AUTO) 80.6 % (42-78); WHITE BLOOD COUNT 11.1 10^3/uL (4.0-10.5)
[2016-12-03] MEDS: 1/2 NORMAL SALINE 1,000 ML IV PRN (22:12)
[2016-12-04 07:08] LABS: FREE KAPPA LIGHT CHAINS 95.29 mg/L (3.30-19.40); FREE LAMBDA LIGHT CHAINS 51.08 mg/L (5.71-26.30); KAPPA LAMBDA RATIO 1.87 (0.26-1.65)
--- NOTE | 2016-12-04 07:48 | PDOC PROGRESS REPORT ---
Subjective Progress Note for:: 12/04/16 Subjective:: No acute events overnight, pt awaiting transfer to [facility] Physical Exam Vital Signs: Temp Pulse Resp BP Pulse Ox 99.0 F 83 17 122/62 99 12/04/16 03:24 12/04/16 07:00 12/04/16 03:24 12/04/16 03:24 12/04/16 03:24 Intake & Output 12/03/16 12/04/16 12/05/16 06:59 06:59 06:59 Intake Total 3300 3977 Output Total 700 1910 Balance 2600 2067 General appearance: PRESENT: no acute distress, well-developed, well-nourished Head exam: PRESENT: atraumatic, normocephalic Eye exam: PRESENT: conjunctiva pink, EOMI, PERRLA. ABSENT: scleral icterus Ear exam: PRESENT: normal external ear exam Mouth exam: PRESENT: moist, tongue midline Neck exam: ABSENT: carotid bruit, JVD, lymphadenopathy, thyromegaly Respiratory exam: PRESENT: clear to auscultation celi. ABSENT: rales, rhonchi, wheezes Cardiovascular exam: PRESENT: RRR. ABSENT: diastolic murmur, rubs, systolic murmur Pulses: PRESENT: normal dorsalis pedis pul Vascular exam: PRESENT: normal capillary refill GI/Abdominal exam: PRESENT: normal bowel sounds, soft. ABSENT: distended, guarding, mass, organolmegaly, rebound, tenderness Rectal exam: PRESENT: deferred Extremities exam: PRESENT: full ROM. ABSENT: calf tenderness, clubbing, pedal edema Neurological exam: PRESENT: alert, awake, oriented to person, oriented to place , oriented to time, oriented to situation, CN II-XII grossly intact. ABSENT: motor sensory deficit Psychiatric exam: PRESENT: appropriate affect, normal mood. ABSENT: homicidal ideation, suicidal ideation Skin exam: PRESENT: dry, intact, warm. ABSENT: cyanosis, rash Results Laboratory Results: 12/03/16 20:25 12/03/16 12/03/16 08:35 20:25 WBC 11.1 H RBC 3.73 L Hgb 9.5 L Hct 28.9 L MCV 78 L MCH 25.4 L MCHC 32.7 RDW 14.7 H Plt Count 341 Seg Neutrophils % 80.6 H Lymphocytes % 10.5 L Monocytes % 6.9 Eosinophils % 1.3 Basophils % 0.7 Absolute Neutrophils 8.9 H Absolute Lymphocytes 1.2 Absolute Monocytes 0.8 Absolute Eosinophils 0.1 Absolute Basophils 0.1 Blood Type O POSITIVE Antibody Screen NEGATIVE Impressions: Chest X-Ray 12/01/16 19:46 IMPRESSION: NO ACUTE RADIOGRAPHIC FINDING IN THE CHEST. Abdomen/Pelvis CT 12/02/16 00:00 IMPRESSION: Large bladder mass worrisome for tumor primary bladder malignancy. No CT evidence of distant metastatic disease over the chest abdomen and pelvis Body Scan Nuclear Medicine 12/02/16 00:00 IMPRESSION: NORMAL BONE SCAN. Chest CT 12/02/16 00:00 IMPRESSION: Large bladder mass worrisome for tumor primary bladder malignancy. 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 (3) Anemia Qualifiers: Anemia type: iron deficiency Iron deficiency anemia type: chronic blood loss Qualified Code(s): D50.0 - Iron deficiency anemia secondary to blood loss (chronic) Is this a current diagnosis for this admission?: Yes (4) Weight loss, unintentional Is this a current diagnosis for this admission?: YesPlan: Likely malignancy related (5) UTI (urinary tract infection) with pyuria Is this a current diagnosis for this admission?: YesPlan: Con't tx per hospitalist team - Time Time Spent with patient: 15-24 minutes Critical Time spent with patient: 15-24 minutes Anticipated discharge: [facility] Disposition: Hopeful transfer soon - Inpatient Certification Based on my medical assessment, after consideration of the patient's comorbidities, presenting symptoms, or acuity I expect that the services needed warrant INPATIENT care.: Yes I certify that my determination is in accordance with my understanding of Medicare's requirements for reasonable and necessary INPATIENT services [42 CFR 412.3e].: Yes Medical Necessity: Failure to Improve With Outpatient Therapy, Need for IV Antibiotics, Need for Surgery
--- NOTE | 2016-12-04 10:36 | Physician Advisory Note ---
Physician Advisor ProgressNote .: Pursuant to the plan for [facility], I have reviewed the medical record for this patient. Physician Advisor Statement: Possible documentation opportunities if attending agrees: 1. "AnemiaChrDz is due to CKD & CA" [have to specify type of chronic dz now] 2. "underweight with protein-calorie malnutrition [state mild, mod, or severe] with BMI 14.6, ..." [if possible, give specifics on intake, loss of SQ fat & muscle mass, diminished hand certified diabetes educator strength, & clinical importance such as (B) modified diet or supplements ordered, (C) additional labs ordered, (D) prolonged wound healing time, (E) delayed infxn clearance] 3. "SIRS on admission, likely due to severity of intravascular volume depletion ..." Thanks! CK
[2016-12-04] MEDS: ATENOLOL 50 MG TABLET PO SCH (10:37)
[2016-12-04] MEDS: LEVOFLOXACIN 250 MG TABLET PO SCH (10:38)
[2016-12-04] MEDS: MEGESTROL ACETATE 20 MG TABLET PO SCH (10:38)
[2016-12-04] MEDS: HYDROCHLOROTHIAZIDE 12.5 MG CAPSULE PO SCH (10:39)
[2016-12-04] MEDS: ASPIRIN 81 MG TABLET, ENT COATED PO SCH (10:39)
[2016-12-04] MEDS: CHOLECALCIFEROL (D3) 1,000 UNIT TABLET PO SCH (10:39)
[2016-12-04] MEDS: DOCUSATE SODIUM 100 MG CAPSULE PO SCH (10:40)
[2016-12-04] MEDS: ALLOPURINOL 100 MG TABLET PO SCH (10:40)
[2016-12-04] MEDS: LISINOPRIL 10 MG TABLET PO SCH (10:40)
[2016-12-04] MEDS: HEPARIN SOD (PORCINE) 5,000 UNIT/ML 1 ML SYRINGE SUBCUT SCH ×2 (10:41→22:23)
--- NOTE | 2016-12-04 13:03 | PDOC PROGRESS REPORT ---
Subjective Progress Note for:: 12/04/16 Subjective:: This is a follow-up visit for acute anemia of blood loss. He has no complaints today. [facility] is [facility]. No acute events overnight. Physical Exam Vital Signs: Temp Pulse Resp BP Pulse Ox 99.0 F 82 20 121/61 100 12/04/16 11:14 12/04/16 11:14 12/04/16 11:14 12/04/16 11:14 12/04/16 11:14 Intake & Output 12/03/16 12/04/16 12/05/16 06:59 06:59 06:59 Intake Total 3300 3977 Output Total 700 1910 Balance 2600 2067 PHYSICAL EXAM: GENERAL: This is a well-developed, cachectic appearing -[place] male resting in no acute distress. HEENT: Normocephalic atraumatic. Trachea is midline. Temporal wasting is evident. HEART: Regular rate and rhythm. No murmurs rubs or gallops. LUNGS: Clear to auscultation bilaterally with equal rise and fall of the chest. ABDOMEN: Soft, nontender, nondistended with normoactive bowel sounds EXTREMITIES: No clubbing cyanosis or edema. 2+ peripheral pulses. Small- caliber extremities with muscle wasting. NEURO: Awake, alert, oriented x3. Cranial nerves II through XII grossly intact. PSYCH: Normal affect. Results Laboratory Results: 12/03/16 20:25 12/03/16 12/03/16 08:35 20:25 WBC 11.1 H RBC 3.73 L Hgb 9.5 L Hct 28.9 L MCV 78 L MCH 25.4 L MCHC 32.7 RDW 14.7 H Plt Count 341 Seg Neutrophils % 80.6 H Lymphocytes % 10.5 L Monocytes % 6.9 Eosinophils % 1.3 Basophils % 0.7 Absolute Neutrophils 8.9 H Absolute Lymphocytes 1.2 Absolute Monocytes 0.8 Absolute Eosinophils 0.1 Absolute Basophils 0.1 Blood Type O POSITIVE Antibody Screen NEGATIVE Impressions: Chest X-Ray 12/01/16 19:46 IMPRESSION: NO ACUTE RADIOGRAPHIC FINDING IN THE CHEST. Abdomen/Pelvis CT 12/02/16 00:00 IMPRESSION: Large bladder mass worrisome for tumor primary bladder malignancy. No CT evidence of distant metastatic disease over the chest abdomen and pelvis Body Scan Nuclear Medicine 12/02/16 00:00 IMPRESSION: NORMAL BONE SCAN. Chest CT 12/02/16 00:00 IMPRESSION: Large bladder mass worrisome for tumor primary bladder malignancy. No CT evidence of distant metastatic disease over the chest abdomen and pelvis Assessment & Plan - Diagnosis (1) Anemia Qualifiers: Anemia type: iron deficiency Iron deficiency anemia type: chronic blood loss Qualified Code(s): D50.0 - Iron deficiency anemia secondary to blood loss (chronic) Is this a current diagnosis for this admission?: YesPlan: Anemia of acute blood loss. Likely secondary to hematuria and underlying history of prostate cancer. Believe the patient needs urology consult with likely cystoscopy. His hemoglobin has dropped from 9 down to 7. It is now back up to 9 status post 2 units of packed red blood cells. I have great concern that the patient has underlying cancer to account for the anemia that we see. Indeed, some of the anemia could be secondary to continued IV fluids, as the patient looks to have been hemoconcentrated from dehydration. (2) Prostate cancer Is this a current diagnosis for this admission?: YesPlan: Patient is status post radiation therapy. He is quite cachectic on exam. I do have concerns that his prostate cancer has advanced. He has seen hematology/ oncology here. PSA is being ordered. CT of the abdomen and pelvis shows large bladder mass. (3) Hypercalcemia Is this a current diagnosis for this admission?: YesPlan: Much improved with IV fluids. He continues on IV fluid. (4) Acute renal failure superimposed on stage 3 chronic kidney disease Qualifiers: Acute renal failure type: unspecified Qualified Code(s): N17.9 - Acute kidney failure, unspecified; N18.3 - Chronic kidney disease, stage 3 ( moderate) Plan: Continue IV fluids. The patient has had very good recovery of kidney function. This is most likely secondary to dehydration from decreased by mouth intake. (5) Anorexia Is this a current diagnosis for this admission?: YesPlan: Patient is on regular diet. Encourage him to eat to his heart's content. (6) Hypernatremia Is this a current diagnosis for this admission?: YesPlan: Resolved. Likely secondary from decreased by mouth and dehydration with hemoconcentration (7) Bladder mass Plan: Transferred to outside hospital for further intervention and urological assessment (8) Severe protein-calorie malnutrition Plan: Encourage increased by mouth - Time Time Spent with patient: 15-24 minutes - Inpatient Certification Medical Necessity: Need For IV Fluids - Plan Summary Plan Summary: Patient has been accepted in transfer to [facility] Await bed availability. Patient is currently one of 2 people waiting.
[2016-12-04 14:41] LABS: ALBUMIN 3 2.7 g/dL (2.9-4.4); ALPHA-1-GLOBULIN 0.3 g/dL (0.0-0.4); ALPHA-2-GLOBULIN 3 0.7 g/dL (0.4-1.0); BETA GLOBULIN 0.8 g/dL (0.7-1.3); GLOBULIN TTL 2.9 g/dL (2.2-3.9); IMMUNOGLOBULIN A 163 mg/dL (61-437); IMMUNOGLOBULIN G 1112 mg/dL (700-1600); IMMUNOGLOBULIN M 47 mg/dL (15-143); MONOCLONAL-SPIKE Not Observed g/dL (Not Observed); PROTEIN TOTAL SERUM 5.6 g/dL (6.0-8.5)
--- NOTE | 2016-12-05 07:52 | PDOC PROGRESS REPORT ---
Subjective Progress Note for:: 12/05/16 Subjective:: No acute events overnight, patient awaiting transfer to [facility] Physical Exam Vital Signs: Temp Pulse Resp BP Pulse Ox 99.2 F 80 17 128/63 H 100 12/05/16 05:25 12/05/16 07:00 12/05/16 05:25 12/05/16 05:25 12/05/16 05:25 Intake & Output 12/04/16 12/05/16 12/06/16 06:59 06:59 06:59 Intake Total 3977 1886 Output Total 1910 3500 Balance 2067 -1614 General appearance: PRESENT: no acute distress, well-developed, well-nourished Head exam: PRESENT: atraumatic, normocephalic Eye exam: PRESENT: conjunctiva pink, EOMI, PERRLA. ABSENT: scleral icterus Ear exam: PRESENT: normal external ear exam Mouth exam: PRESENT: moist, tongue midline Neck exam: ABSENT: carotid bruit, JVD, lymphadenopathy, thyromegaly Respiratory exam: PRESENT: clear to auscultation celi. ABSENT: rales, rhonchi, wheezes Cardiovascular exam: PRESENT: RRR. ABSENT: diastolic murmur, rubs, systolic murmur Pulses: PRESENT: normal dorsalis pedis pul Vascular exam: PRESENT: normal capillary refill GI/Abdominal exam: PRESENT: normal bowel sounds, soft. ABSENT: distended, guarding, mass, organolmegaly, rebound, tenderness Rectal exam: PRESENT: deferred Extremities exam: PRESENT: full ROM. ABSENT: calf tenderness, clubbing, pedal edema Neurological exam: PRESENT: alert, awake, oriented to person, oriented to place , oriented to time, oriented to situation, CN II-XII grossly intact. ABSENT: motor sensory deficit Psychiatric exam: PRESENT: appropriate affect, normal mood. ABSENT: homicidal ideation, suicidal ideation Skin exam: PRESENT: dry, intact, warm. ABSENT: cyanosis, rash Results Laboratory Results: 12/03/16 20:25 Impressions: Chest X-Ray 12/01/16 19:46 IMPRESSION: NO ACUTE RADIOGRAPHIC FINDING IN THE CHEST. Abdomen/Pelvis CT 12/02/16 00:00 IMPRESSION: Large bladder mass worrisome for tumor primary bladder malignancy. No CT evidence of distant metastatic disease over the chest abdomen and pelvis Body Scan Nuclear Medicine 12/02/16 00:00 IMPRESSION: NORMAL BONE SCAN. Chest CT 12/02/16 00:00 IMPRESSION: Large bladder mass worrisome for tumor primary bladder malignancy. 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 He can be considered for cystectomy thereafter. But first, we need to get the diagnosis and appropriate urology evaluation and multidisciplinary discussion. (2) Hypercalcemia Is this a current diagnosis for this admission?: YesPlan: Resolved, secondary to renal failure. (3) Anemia Qualifiers: Anemia type: iron deficiency Iron deficiency anemia type: chronic blood loss Qualified Code(s): D50.0 - Iron deficiency anemia secondary to blood loss (chronic) Is this a current diagnosis for this admission?: YesPlan: Iron deficiency secondary to blood loss from bladder tumor, also multifactorial with anemia of chronic kidney disease. Hemoglobin stable. Continue to monitor. (4) Weight loss, unintentional Is this a current diagnosis for this admission?: Yes (5) UTI (urinary tract infection) with pyuria Is this a current diagnosis for this admission?: YesPlan: Continue treatment - Time Time Spent with patient: 15-24 minutes Critical Time spent with patient: 15-24 minutes Anticipated discharge: [facility] Within: within 24 hours - Inpatient Certification Based on my medical assessment, after consideration of the patient's comorbidities, presenting symptoms, or acuity I expect that the services needed warrant INPATIENT care.: Yes I certify that my determination is in accordance with my understanding of Medicare's requirements for reasonable and necessary INPATIENT services [42 CFR 412.3e].: Yes Medical Necessity: Need for IV Antibiotics, Need for Surgery
[2016-12-05] MEDS: HEPARIN SOD (PORCINE) 5,000 UNIT/ML 1 ML SYRINGE SUBCUT SCH ×2 (10:21→21:54)
[2016-12-05] MEDS: HYDROCHLOROTHIAZIDE 12.5 MG CAPSULE PO SCH (10:22)
[2016-12-05] MEDS: CHOLECALCIFEROL (D3) 1,000 UNIT TABLET PO SCH (10:22)
[2016-12-05] MEDS: ASPIRIN 81 MG TABLET, ENT COATED PO SCH (10:23)
[2016-12-05] MEDS: DOCUSATE SODIUM 100 MG CAPSULE PO SCH (10:23)
[2016-12-05] MEDS: LISINOPRIL 10 MG TABLET PO SCH (10:24)
[2016-12-05] MEDS: MEGESTROL ACETATE 20 MG TABLET PO SCH (10:24)
[2016-12-05] MEDS: ALLOPURINOL 100 MG TABLET PO SCH (10:24)
[2016-12-05] MEDS: ATENOLOL 50 MG TABLET PO SCH (10:25)
[2016-12-05] MEDS: LEVOFLOXACIN 250 MG TABLET PO SCH (10:26)
--- NOTE | 2016-12-05 12:26 | PDOC PROGRESS REPORT ---
Subjective Progress Note for:: 12/05/16 Subjective:: This is a follow-up visit for acute anemia of blood loss. He has no complaints today. He is currently waiting for bed at [facility]. No acute events overnight. The patient is currently working with physical therapy in the room he has ambulated 150 feet. Physical Exam Vital Signs: Temp Pulse Resp BP Pulse Ox 98.7 F 82 16 127/62 H 100 12/05/16 07:17 12/05/16 07:17 12/05/16 07:17 12/05/16 07:17 12/05/16 07:17 Intake & Output 12/04/16 12/05/16 12/06/16 06:59 06:59 06:59 Intake Total 3977 1886 Output Total 1910 3500 Balance 7 -161 PHYSICAL EXAM: GENERAL: This is a well-developed, cachectic appearing -[place]ron[place] male resting in no acute distress. HEENT: Normocephalic atraumatic. Trachea is midline. Temporal wasting is evident. HEART: Regular rate and rhythm. No murmurs rubs or gallops. LUNGS: Clear to auscultation bilaterally with equal rise and fall of the chest. ABDOMEN: Soft, nontender, nondistended with normoactive bowel sounds EXTREMITIES: No clubbing cyanosis or edema. 2+ peripheral pulses. Small- caliber extremities with muscle wasting. NEURO: Awake, alert, oriented x3. Cranial nerves II through XII grossly intact. : Draper catheter in place. PSYCH: Normal affect. Results Laboratory Results: 12/03/16 20:25 Impressions: Chest X-Ray 12/01/16 19:46 IMPRESSION: NO ACUTE RADIOGRAPHIC FINDING IN THE CHEST. Abdomen/Pelvis CT 12/02/16 00:00 IMPRESSION: Large bladder mass worrisome for tumor primary bladder malignancy. No CT evidence of distant metastatic disease over the chest abdomen and pelvis Body Scan Nuclear Medicine 12/02/16 00:00 IMPRESSION: NORMAL BONE SCAN. Chest CT 12/02/16 00:00 IMPRESSION: Large bladder mass worrisome for tumor primary bladder malignancy. No CT evidence of distant metastatic disease over the chest abdomen and pelvis Assessment & Plan - Diagnosis (1) Anemia Qualifiers: Anemia type: iron deficiency Iron deficiency anemia type: chronic blood loss Qualified Code(s): D50.0 - Iron deficiency anemia secondary to blood loss (chronic) Is this a current diagnosis for this admission?: YesPlan: Anemia of acute blood loss. Likely secondary to hematuria and underlying history of prostate cancer. Believe the patient needs urology consult with likely cystoscopy. His hemoglobin has dropped from 9 down to 7. It is now back up to 9 status post 2 units of packed red blood cells. I have great concern that the patient has underlying cancer to account for the anemia that we see. Indeed, some of the anemia could be secondary to continued IV fluids, as the patient looks to have been hemoconcentrated from dehydration. (2) Prostate cancer Is this a current diagnosis for this admission?: YesPlan: Patient is status post radiation therapy. He is quite cachectic on exam. I do have concerns that his prostate cancer has advanced. He has seen hematology/ oncology here. PSA is being ordered. CT of the abdomen and pelvis shows large bladder mass. (3) Hypercalcemia Is this a current diagnosis for this admission?: YesPlan: Much improved with IV fluids. He continues on IV fluid. (4) Acute renal failure superimposed on stage 3 chronic kidney disease Qualifiers: Acute renal failure type: unspecified Qualified Code(s): N17.9 - Acute kidney failure, unspecified; N18.3 - Chronic kidney disease, stage 3 ( moderate) Plan: Continue IV fluids. The patient has had very good recovery of kidney function. This is most likely secondary to dehydration from decreased by mouth intake. IV fluids are largely continued at this point secondary to extreme decreased by mouth intake (5) Anorexia Is this a current diagnosis for this admission?: YesPlan: Patient is on regular diet. Encourage him to eat to his heart's content. (6) Hypernatremia Is this a current diagnosis for this admission?: YesPlan: Resolved. Likely secondary from decreased by mouth and dehydration with hemoconcentration (7) Bladder mass Plan: Transferred to outside hospital for further intervention and urological assessment (8) Severe protein-calorie malnutrition Plan: Encourage increased by mouth intake. Continue IV fluids.
[2016-12-06 04:37] LABS: ABSOLUTE EOSINOPHILS # (AUTO) 0.2 10^3/uL (0.0-0.6); ABSOLUTE MONOCYTES (AUTO) 0.5 10^3/uL (0.1-1.4); ABSOLUTE NEUT (AUTO) 6.3 10^3/uL (1.7-8.2); BASOPHILS % (AUTO) 0.4 % (0-2); EOSINOPHILS % (AUTO) 2.7 % (0-6); HEMATOCRIT 28.9 % (37.9-51.0); HEMOGLOBIN 9.8 g/dL (13.5-17.0); HGB HCT DIFFERENCE 0.5; LYMPHOCYTES % (AUTO) 12.3 % (13-45); MEAN CORPUSCULAR HEMOGLOBIN 26.3 pg (27.0-33.4); MEAN CORPUSCULAR HGB CONC 33.8 g/dL (32.0-36.0); MEAN CORPUSCULAR VOLUME 78 fl (80-97); MONOCYTES % (AUTO) 6.7 % (3-13); RED BLOOD COUNT 3.72 10^6/uL (4.35-5.55); RED CELL DISTRIBUTION WIDTH 15.3 % (11.5-14.0); SEGMENTED NEUTROPHILS % (AUTO) 77.9 % (42-78); WHITE BLOOD COUNT 8.1 10^3/uL (4.0-10.5)
[2016-12-06 05:00] LABS: ANION GAP 6 (5-19); BLOOD UREA NITROGEN 12 mg/dL (7-20); CALCIUM 8.7 mg/dL (8.4-10.2); CARBON DIOXIDE 19 mmol/L (22-30); CHLORIDE 108 mmol/L (98-107); CREATININE RESULT 1.14 mg/dL (0.52-1.25); GLUCOSE 99 mg/dL (75-110); MAGNESIUM 1.7 mg/dL (1.6-2.3); SODIUM 133.4 mmol/L (137-145)
[2016-12-06] MEDS: ALLOPURINOL 100 MG TABLET PO SCH (10:18)
[2016-12-06] MEDS: LEVOFLOXACIN 250 MG TABLET PO SCH (10:18)
[2016-12-06] MEDS: LISINOPRIL 10 MG TABLET PO SCH (10:19)
[2016-12-06] MEDS: CHOLECALCIFEROL (D3) 1,000 UNIT TABLET PO SCH (10:19)
[2016-12-06] MEDS: ASPIRIN 81 MG TABLET, ENT COATED PO SCH (10:20)
[2016-12-06] MEDS: DOCUSATE SODIUM 100 MG CAPSULE PO SCH (10:20)
[2016-12-06] MEDS: ATENOLOL 50 MG TABLET PO SCH (10:20)
[2016-12-06] MEDS: HYDROCHLOROTHIAZIDE 12.5 MG CAPSULE PO SCH (10:20)
[2016-12-06] MEDS: MEGESTROL ACETATE 20 MG TABLET PO SCH (10:20)
[2016-12-06] MEDS: 1/2 NORMAL SALINE 1,000 ML IV PRN ×2 (10:21→16:49)
[2016-12-06] MEDS: HEPARIN SOD (PORCINE) 5,000 UNIT/ML 1 ML SYRINGE SUBCUT SCH ×2 (10:21→21:10)
--- NOTE | 2016-12-06 13:48 | PDOC PROGRESS REPORT ---
Subjective Progress Note for:: 12/06/16 Subjective:: This is a follow-up visit for acute anemia of blood loss. He has no complaints today. He is currently waiting for bed at [facility]. No acute events overnight. Physical Exam Vital Signs: Temp Pulse Resp BP Pulse Ox 98.7 F 90 12 123/85 100 12/06/16 12:00 12/06/16 12:00 12/06/16 12:00 12/06/16 12:00 12/06/16 12:00 Intake & Output 12/05/16 12/06/16 12/07/16 06:59 06:59 06:59 Intake Total 1886 4411 Output Total 3500 2600 Balance -1614 1811 Weight 47.3 kg PHYSICAL EXAM: GENERAL: This is a well-developed, cachectic appearing -[place]alian male resting in no acute distress. HEENT: Normocephalic atraumatic. Trachea is midline. Temporal wasting is evident. HEART: Regular rate and rhythm. No murmurs rubs or gallops. LUNGS: Clear to auscultation bilaterally with equal rise and fall of the chest. ABDOMEN: Soft, nontender, nondistended with normoactive bowel sounds EXTREMITIES: No clubbing cyanosis or edema. 2+ peripheral pulses. Small- caliber extremities with muscle wasting. NEURO: Awake, alert, oriented x3. Cranial nerves II through XII grossly intact. : Draper catheter in place. PSYCH: Normal affect. Results Laboratory Results: 12/06/16 03:44 12/06/16 03:44 12/06/16 12/06/16 03:44 03:44 WBC 8.1 RBC 3.72 L Hgb 9.8 L Hct 28.9 L MCV 78 L MCH 26.3 L MCHC 33.8 RDW 15.3 H Plt Count 322 Seg Neutrophils % 77.9 Lymphocytes % 12.3 L Monocytes % 6.7 Eosinophils % 2.7 Basophils % 0.4 Absolute Neutrophils 6.3 Absolute Lymphocytes 1.0 Absolute Monocytes 0.5 Absolute Eosinophils 0.2 Absolute Basophils 0.0 Sodium 133.4 L Potassium 4.0 Chloride 108 H Carbon Dioxide 19 L Anion Gap 6 BUN 12 Creatinine 1.14 Est GFR ( Amer) > 60 Est GFR (Non-Af Amer) > 60 Glucose 99 Calcium 8.7 Magnesium 1.7 Impressions: Chest X-Ray 12/01/16 19:46 IMPRESSION: NO ACUTE RADIOGRAPHIC FINDING IN THE CHEST. Abdomen/Pelvis CT 12/02/16 00:00 IMPRESSION: Large bladder mass worrisome for tumor primary bladder malignancy. No CT evidence of distant metastatic disease over the chest abdomen and pelvis Body Scan Nuclear Medicine 12/02/16 00:00 IMPRESSION: NORMAL BONE SCAN. Chest CT 12/02/16 00:00 IMPRESSION: Large bladder mass worrisome for tumor primary bladder malignancy. No CT evidence of distant metastatic disease over the chest abdomen and pelvis Assessment & Plan - Diagnosis (1) Anemia Qualifiers: Anemia type: iron deficiency Iron deficiency anemia type: chronic blood loss Qualified Code(s): D50.0 - Iron deficiency anemia secondary to blood loss (chronic) Is this a current diagnosis for this admission?: YesPlan: Anemia of acute blood loss. Likely secondary to hematuria and underlying history of prostate cancer along with iron deficiency. Believe the patient needs urology consult with likely cystoscopy. His hemoglobin has dropped from 9 down to 7. It is now back up to 9 status post 2 units of packed red blood cells. I have great concern that the patient has underlying cancer to account for the anemia that we see. Indeed, some of the anemia could be secondary to continued IV fluids, as the patient looks to have been hemoconcentrated from dehydration. Will give Feraheme. (2) Prostate cancer Is this a current diagnosis for this admission?: YesPlan: Patient is status post radiation therapy. He is quite cachectic on exam. I do have concerns that his prostate cancer has advanced. He has seen hematology/ oncology here. PSA is being ordered. CT of the abdomen and pelvis shows large bladder mass.Patient is currently awaiting transfer to [place] for urology workup. Apparently, we have a urologist available this weekend: Therefore, I will consult Dr. Borrero. (3) Hypercalcemia Is this a current diagnosis for this admission?: YesPlan: Much improved with IV fluids. He continues on IV fluid. (4) Acute renal failure superimposed on stage 3 chronic kidney disease Qualifiers: Acute renal failure type: unspecified Qualified Code(s): N17.9 - Acute kidney failure, unspecified; N18.3 - Chronic kidney disease, stage 3 ( moderate) Plan: Resolved. Continue IV fluids. The patient has had very good recovery of kidney function. This is most likely secondary to dehydration from decreased by mouth intake. IV fluids are largely continued at this point secondary to extreme decreased by mouth intake (5) Anorexia Is this a current diagnosis for this admission?: YesPlan: Patient is on regular diet. Encourage him to eat to his heart's content. (6) Hypernatremia Is this a current diagnosis for this admission?: YesPlan: Resolved. Likely secondary from decreased by mouth and dehydration with hemoconcentration (7) Bladder mass Plan: Transferred to outside hospital for further intervention and urological assessment. Patient is currently awaiting transfer to [place] for urology workup. Apparently, we have a urologist available this weekend: Therefore, I will consult Dr. Borrero. (8) Severe protein-calorie malnutrition Plan: Encourage increased by mouth intake. Continue IV fluids. - Time Time Spent with patient: 15-24 minutes Anticipated discharge: Home - Inpatient Certification Medical Necessity: Need Close Monitoring Due to Risk of Patient Decompensation, Need for IV Antibiotics
[2016-12-06] MEDS ORDERED: FERUMOXYTOL 510 MG in NORMAL SALINE 100 ML IV ONE (15:00)
[2016-12-06] MEDS: POLYETHYLENE GLYCOL 3350 POWDER 17 GM/1 PACKET PO PRN (17:50)
[2016-12-07] MEDS: 1/2 NORMAL SALINE 1,000 ML IV PRN ×2 (08:08→18:21)
[2016-12-07] MEDS: HYDROCHLOROTHIAZIDE 12.5 MG CAPSULE PO SCH (09:34)
[2016-12-07] MEDS: DOCUSATE SODIUM 100 MG CAPSULE PO SCH (09:34)
[2016-12-07] MEDS: ASPIRIN 81 MG TABLET, ENT COATED PO SCH (09:35)
[2016-12-07] MEDS: ALLOPURINOL 100 MG TABLET PO SCH (09:35)
[2016-12-07] MEDS: CHOLECALCIFEROL (D3) 1,000 UNIT TABLET PO SCH (09:35)
[2016-12-07] MEDS: MEGESTROL ACETATE 20 MG TABLET PO SCH (09:35)
[2016-12-07] MEDS: LISINOPRIL 10 MG TABLET PO SCH (09:35)
[2016-12-07] MEDS: HEPARIN SOD (PORCINE) 5,000 UNIT/ML 1 ML SYRINGE SUBCUT SCH ×2 (09:36→22:47)
[2016-12-07] MEDS: ATENOLOL 50 MG TABLET PO SCH (09:36)
[2016-12-07] MEDS: LEVOFLOXACIN 250 MG TABLET PO SCH (11:41)
--- NOTE | 2016-12-07 15:36 | PDOC PROGRESS REPORT ---
Subjective Progress Note for:: 12/07/16 Subjective:: This is a follow-up visit for acute anemia of blood loss. He has no complaints today. He is currently waiting for bed at [facility]. No acute events overnight. Physical Exam Vital Signs: Temp Pulse Resp BP Pulse Ox 99.1 F 78 12 133/60 H 100 12/07/16 11:18 12/07/16 11:18 12/07/16 11:18 12/07/16 11:18 12/07/16 11:18 Intake & Output 12/06/16 12/07/16 12/08/16 06:59 06:59 06:59 Intake Total 4411 5425 Output Total 2600 3730 Balance 1811 1695 Weight 47.3 kg 56 kg PHYSICAL EXAM: GENERAL: This is a well-developed, cachectic appearing -Mosotho male resting in no acute distress. HEENT: Normocephalic atraumatic. Trachea is midline. Temporal wasting is evident. HEART: Regular rate and rhythm. No murmurs rubs or gallops. LUNGS: Clear to auscultation bilaterally with equal rise and fall of the chest. ABDOMEN: Soft, nontender, nondistended with normoactive bowel sounds EXTREMITIES: No clubbing cyanosis or edema. 2+ peripheral pulses. Small- caliber extremities with muscle wasting. NEURO: Awake, alert, oriented x3. Cranial nerves II through XII grossly intact. : Draper catheter in place. PSYCH: Normal affect. Results Laboratory Results: 12/06/16 03:44 12/06/16 03:44 Impressions: Chest X-Ray 12/01/16 19:46 IMPRESSION: NO ACUTE RADIOGRAPHIC FINDING IN THE CHEST. Abdomen/Pelvis CT 12/02/16 00:00 IMPRESSION: Large bladder mass worrisome for tumor primary bladder malignancy. No CT evidence of distant metastatic disease over the chest abdomen and pelvis Body Scan Nuclear Medicine 12/02/16 00:00 IMPRESSION: NORMAL BONE SCAN. Chest CT 12/02/16 00:00 IMPRESSION: Large bladder mass worrisome for tumor primary bladder malignancy. No CT evidence of distant metastatic disease over the chest abdomen and pelvis Assessment & Plan - Diagnosis (1) Anemia Qualifiers: Anemia type: iron deficiency Iron deficiency anemia type: chronic blood loss Qualified Code(s): D50.0 - Iron deficiency anemia secondary to blood loss (chronic) Is this a current diagnosis for this admission?: YesPlan: Anemia of acute blood loss. Likely secondary to hematuria and underlying history of prostate cancer along with iron deficiency. Believe the patient needs urology consult with likely cystoscopy. His hemoglobin has dropped from 9 down to 7. It is now back up to 9 status post 2 units of packed red blood cells. I have great concern that the patient has underlying cancer to account for the anemia that we see. Indeed, some of the anemia could be secondary to continued IV fluids, as the patient looks to have been hemoconcentrated from dehydration. Status post 1 dose of Feraheme 12/06/2016. (2) Prostate cancer Is this a current diagnosis for this admission?: YesPlan: Patient is status post radiation therapy. He is quite cachectic on exam. I do have concerns that his prostate cancer has advanced. He has seen hematology/ oncology here. PSA is being ordered. CT of the abdomen and pelvis shows large bladder mass.Patient is currently awaiting transfer to [place] for urology workup. Case discussed with Dr. Borrero. It looks as though the patient will in fact need cystectomy. (3) Hypercalcemia Is this a current diagnosis for this admission?: YesPlan: Much improved with IV fluids. He continues on IV fluid. (4) Acute renal failure superimposed on stage 3 chronic kidney disease Qualifiers: Acute renal failure type: unspecified Qualified Code(s): N17.9 - Acute kidney failure, unspecified; N18.3 - Chronic kidney disease, stage 3 ( moderate) Plan: Resolved. Continue IV fluids. The patient has had very good recovery of kidney function. This is most likely secondary to dehydration from decreased by mouth intake. IV fluids are largely continued at this point secondary to extreme decreased by mouth intake (5) Anorexia Is this a current diagnosis for this admission?: YesPlan: Patient is on regular diet. Encourage him to eat to his heart's content. (6) Hypernatremia Is this a current diagnosis for this admission?: YesPlan: Resolved. Likely secondary from decreased by mouth and dehydration with hemoconcentration (7) Bladder mass Is this a current diagnosis for this admission?: YesPlan: Transferred to outside hospital for further intervention and urological assessment. Patient is currently awaiting transfer to [place] for urology workup. Will likely need cystectomy. (8) Severe protein-calorie malnutrition Plan: Encourage increased by mouth intake. Continue IV fluids. - Time Time Spent with patient: 15-24 minutes - Inpatient Certification Medical Necessity: Significant Comorbidiites Make Outpatient Treatment Too Risky , Need Close Monitoring Due to Risk of Patient Decompensation
[2016-12-07] MEDS: POLYETHYLENE GLYCOL 3350 POWDER 17 GM/1 PACKET PO PRN (17:38)
[2016-12-08] MEDS: 1/2 NORMAL SALINE 1,000 ML IV PRN ×4 (04:35→22:02)
[2016-12-08] MEDS: CHOLECALCIFEROL (D3) 1,000 UNIT TABLET PO SCH (09:30)
[2016-12-08] MEDS: LISINOPRIL 10 MG TABLET PO SCH (09:30)
[2016-12-08] MEDS: ALLOPURINOL 100 MG TABLET PO SCH (09:31)
[2016-12-08] MEDS: MEGESTROL ACETATE 20 MG TABLET PO SCH (09:31)
[2016-12-08] MEDS: HYDROCHLOROTHIAZIDE 12.5 MG CAPSULE PO SCH (09:31)
[2016-12-08] MEDS: ASPIRIN 81 MG TABLET, ENT COATED PO SCH (09:32)
[2016-12-08] MEDS: DOCUSATE SODIUM 100 MG CAPSULE PO SCH (09:32)
[2016-12-08] MEDS: HEPARIN SOD (PORCINE) 5,000 UNIT/ML 1 ML SYRINGE SUBCUT SCH ×2 (09:33→22:02)
[2016-12-08] MEDS: ATENOLOL 50 MG TABLET PO SCH (09:34)
[2016-12-08] MEDS: LEVOFLOXACIN 250 MG TABLET PO SCH (12:32)
--- NOTE | 2016-12-08 15:10 | PDOC PROGRESS REPORT ---
Subjective Progress Note for:: 12/08/16 Subjective:: This is a follow-up visit for acute anemia of blood loss. He has no complaints today. [facility] is [facility]. No acute events overnight. Patient is awaiting for transfer to [place]. Please see my discharge summary from several days ago for details of his stay here. Physical Exam Vital Signs: Temp Pulse Resp BP Pulse Ox 98.6 F 83 17 133/79 H 100 12/08/16 12:00 12/08/16 12:00 12/08/16 12:00 12/08/16 12:00 12/08/16 12:00 Intake & Output 12/07/16 12/08/16 12/09/16 06:59 06:59 06:59 Intake Total 5425 3180 Output Total 3730 4250 Balance 1695 -1070 Weight 56 kg PHYSICAL EXAM: GENERAL: This is a well-developed, cachectic appearing -Slovenian male resting in no acute distress. HEENT: Normocephalic atraumatic. Trachea is midline. Temporal wasting is evident. HEART: Regular rate and rhythm. No murmurs rubs or gallops. LUNGS: Clear to auscultation bilaterally with equal rise and fall of the chest. ABDOMEN: Soft, nontender, nondistended with normoactive bowel sounds EXTREMITIES: No clubbing cyanosis or edema. 2+ peripheral pulses. Small- caliber extremities with muscle wasting. NEURO: Awake, alert, oriented x3. Cranial nerves II through XII grossly intact. : Draper catheter in place. PSYCH: Normal affect. Results Laboratory Results: 12/06/16 03:44 12/06/16 03:44 Impressions: Chest X-Ray 12/01/16 19:46 IMPRESSION: NO ACUTE RADIOGRAPHIC FINDING IN THE CHEST. Abdomen/Pelvis CT 12/02/16 00:00 IMPRESSION: Large bladder mass worrisome for tumor primary bladder malignancy. No CT evidence of distant metastatic disease over the chest abdomen and pelvis Body Scan Nuclear Medicine 12/02/16 00:00 IMPRESSION: NORMAL BONE SCAN. Chest CT 12/02/16 00:00 IMPRESSION: Large bladder mass worrisome for tumor primary bladder malignancy. No CT evidence of distant metastatic disease over the chest abdomen and pelvis Assessment & Plan - Diagnosis (1) Anemia Qualifiers: Anemia type: iron deficiency Iron deficiency anemia type: chronic blood loss Qualified Code(s): D50.0 - Iron deficiency anemia secondary to blood loss (chronic) Is this a current diagnosis for this admission?: YesPlan: Anemia of acute blood loss. Likely secondary to hematuria and underlying history of prostate cancer along with iron deficiency. Believe the patient needs urology consult with likely cystoscopy. His hemoglobin has dropped from 9 down to 7. It is now back up to 9 status post 2 units of packed red blood cells. I have great concern that the patient has underlying cancer to account for the anemia that we see. Indeed, some of the anemia could be secondary to continued IV fluids, as the patient looks to have been hemoconcentrated from dehydration. Status post 1 dose of Feraheme 12/06/2016. (2) Prostate cancer Is this a current diagnosis for this admission?: YesPlan: Patient is status post radiation therapy. He is quite cachectic on exam. I do have concerns that his prostate cancer has advanced. He has seen hematology/ oncology here. PSA is being ordered. CT of the abdomen and pelvis shows large bladder mass.Patient is currently awaiting transfer to [place] for urology workup. Case discussed with Dr. Borrero. It looks as though the patient will in fact need cystectomy. (3) Hypercalcemia Is this a current diagnosis for this admission?: YesPlan: Much improved with IV fluids. He continues on IV fluid. (4) Acute renal failure superimposed on stage 3 chronic kidney disease Qualifiers: Acute renal failure type: unspecified Qualified Code(s): N17.9 - Acute kidney failure, unspecified; N18.3 - Chronic kidney disease, stage 3 ( moderate) Plan: Resolved. Continue IV fluids. The patient has had very good recovery of kidney function. This is most likely secondary to dehydration from decreased by mouth intake. IV fluids are largely continued at this point secondary to extreme decreased by mouth intake (5) Anorexia Is this a current diagnosis for this admission?: YesPlan: Patient is on regular diet. Encourage him to eat to his heart's content. (6) Hypernatremia Is this a current diagnosis for this admission?: YesPlan: Resolved. Likely secondary from decreased by mouth and dehydration with hemoconcentration (7) Bladder mass Is this a current diagnosis for this admission?: YesPlan: Transferred to outside hospital for further intervention and urological assessment. Patient is currently awaiting transfer to [place] for urology workup. Will likely need cystectomy. (8) Severe protein-calorie malnutrition Plan: Encourage increased by mouth intake. Continue IV fluids. - Time Time Spent with patient: Less than 15 minutes
[2016-12-08] MEDS: POLYETHYLENE GLYCOL 3350 POWDER 17 GM/1 PACKET PO PRN (22:02)
[2016-12-09] MEDS: DOCUSATE SODIUM 100 MG CAPSULE PO SCH (10:17)
[2016-12-09] MEDS: HYDROCHLOROTHIAZIDE 12.5 MG CAPSULE PO SCH (10:17)
[2016-12-09] MEDS: ALLOPURINOL 100 MG TABLET PO SCH (10:18)
[2016-12-09] MEDS: CHOLECALCIFEROL (D3) 1,000 UNIT TABLET PO SCH (10:18)
[2016-12-09] MEDS: LISINOPRIL 10 MG TABLET PO SCH (10:18)
[2016-12-09] MEDS: MEGESTROL ACETATE 20 MG TABLET PO SCH (10:19)
[2016-12-09] MEDS: ASPIRIN 81 MG TABLET, ENT COATED PO SCH (10:19)
[2016-12-09] MEDS: ATENOLOL 50 MG TABLET PO SCH (10:19)
[2016-12-09] MEDS: LEVOFLOXACIN 250 MG TABLET PO SCH (10:19)
[2016-12-09] MEDS: HEPARIN SOD (PORCINE) 5,000 UNIT/ML 1 ML SYRINGE SUBCUT SCH ×2 (10:20→22:53)
--- NOTE | 2016-12-09 15:14 | PDOC PROGRESS REPORT ---
Subjective Progress Note for:: 12/09/16 Subjective:: Reason for visit: Follow-up acute blood loss anemia, bladder mass, hematuria Hospital course: Per other providers, "DOMENIC ESQUEDA is a 75 year old - [place] male with underlying hypertension, gout, mild depression for the last 3 months, without suicidal or homicidal ideation, who presents to the emergency room for evaluation of above complaints.Describes a several month history of above complaints. Over the last 3 or 4 months, he's lost approximately 25 pounds, unintentional. Very poor appetite; states at times he will go "days" without eating. Generalized weakness has progressed to the point where he finds it difficult even to perform his normal activities of daily living. No fall.He's had mild associated lower abdominal discomfort, but no chest pain. Abdominal discomfort is aching in quality, intermittent. Nothing in particular makes it worse.No associated nausea vomiting, fever chills, or chest pain. No diarrhea or dysuria.Status post prostatectomy in 2001 with postoperative radiation treatment. December of last year, he underwent cystoscopy with incision of bladder neck contracture. Operative note reviewed.Describes approximately an 8 month history of persistent hematuria. CT scan in July of this year for evaluation of same revealed soft tissue fullness on the right side of the bladder. Scan was ordered by Dr. Dwyer. Patient states he's not sure if he saw Dr. Dwyer afterwards about this. Again, patient is somewhat of a poor historian.States when he wakes up in the morning, he is able to void a stream of urine. For the rest the day, however, he simply dribbles.No history of atrial fibrillation or atrial flutter. Cardiac history basically negative other than hypertension, with no prior myocardial infarction, congestive heart failure, pulmonary embolus, or DVT. His hospital stay the patient was seen by hematology/oncology. He was sent for CT of the chest abdomen and pelvis which showed a large bladder mass. Was noted on his urinalysis at the patient had elevated leukocyte esterase and malodorous urine at the bedside. He also had a low urinary output suspected to be due to partial shocks from his bladder mass. At one point he was straight cathetered with urine out. There's been no chuy blood in the patient's urine. He states to me that it only occurs every 7 -10 days or so ultimately it was felt that the patient needed transfer to [facility] for cystoscopy and possibly cystectomy. No urologist is available here at [facility]. Patient was also noted to have acute renal failure on presentation he was resuscitated with IV fluids. Creatinine initially was 2 and is now down to 1.5 at discharge. Patient was also started on Levaquin by mouth for urinary tract infection. Dietary was also consult while the patient was here because he is grossly underweight, emaciated and cachectic. He is only eating bites of food while here. This is consistent with his report of decreased by mouth intake as an outpatient. In addition to his comorbid conditions the patient was also noted to be anemic with a hemoglobin of 9.6. After fluid resuscitation his hemoglobin dropped to 7.6. He currently has orders for 2 units of blood to be transfused. At the bedside patient currently has no complaints. He expresses Understanding of his diagnosis and need for transfer. I called [facility] and made arrangements for transfer to the hospitalist service. I spoke with Dr. Vázquez who agreed to take him on his service. In addition to this I spoke with Dr. Spear with urology who will care for the patient once he arrives." I inherited his care Thursday and he continues to have visible hematuria in the garcia catheter with leakage around the tip in spite of repositioning, flushing and balloon manipulation. he c/o lower abdominal distension and discomfort as dull constant nonradiating aching just above his base of his penis, palpation makes it worse, no alleviating factors, no other asct'd symptoms. H/H is stable this morning, unchanged. ROS: Total 10 systems are reviewed, pertinent positives and negatives are noted above, systems are negative. Physical Exam Vital Signs: Temp Pulse Resp BP Pulse Ox 98.3 F 83 16 144/71 H 100 12/09/16 12:00 12/09/16 12:00 12/09/16 12:00 12/09/16 12:00 12/09/16 12:00 Intake & Output 12/08/16 12/09/16 12/10/16 06:59 06:59 06:59 Intake Total 3180 5140 Output Total 4250 3452 Balance -1070 1688 EXAM GENERAL: NAD; well developed, thin, muscle wasting noted diffusely; alert and oriented to person, place, time, situation HEENT: normocephalic, atraumatic; no conjunctival injection, no scleral icterus ; oral mucosa moist; RESPIRATORY: no accessory muscle use, no increased WOB, good air entry bilaterally; no wheezes, rales, rhonchi; no inspiratory crackles CARDIO: no JVD; RRR; no tachycardia GI: soft; nondistended; normal bowel sounds; no rebound, rigidity, guarding : garcia draining grossly bloody urine with tiny floating clots visible as well but is free flowing; external genitalia normal VASCULAR: no pallor; 2+ radial, DP pulse; normal capillary refill EXTREMITIES: no calf tender; no palpable cords in calf; no clubbing, cyanosis , pedal edema; peripheral muscle wasting noted PSYCH: normal affect, normal mood SKIN: warm; moist; no petechiae; no telengectasias; no jaundice; no rash Results Laboratory Results: 12/06/16 03:44 12/06/16 03:44 12/04/16 03:35 Catheterized Urine Urine Culture - Final Viridans Streptococcus Impressions: Abdomen/Pelvis CT 12/02/16 00:00 IMPRESSION: Large bladder mass worrisome for tumor primary bladder malignancy. No CT evidence of distant metastatic disease over the chest abdomen and pelvis Body Scan Nuclear Medicine 12/02/16 00:00 IMPRESSION: NORMAL BONE SCAN. Status: Imported from PACS Assessment & Plan - Diagnosis (1) Acute blood loss anemia Is this a current diagnosis for this admission?: YesPlan: Secondary to bladder mass with resultant hematuria. Unchanged. (2) Bladder mass Is this a current diagnosis for this admission?: YesPlan: Awaiting transfer for urologic evaluation. Change Garcia catheter to a larger diameter and monitor for functionality. (3) Severe protein-calorie malnutrition Is this a current diagnosis for this admission?: YesPlan: Unchanged. (4) Hematuria Is this a current diagnosis for this admission?: YesPlan: Worse today. Initiate bladder/Garcia flush to prevent occlusion by blood clot. - Time Time Spent with patient: 25-34 minutes Medications reviewed and adjusted accordingly: Yes Anticipated discharge: [facility] Within: within 24 hours - Plan Summary Plan Summary: Patient is stable for transfer when bed is available.
[2016-12-10] MEDS: MEGESTROL ACETATE 20 MG TABLET PO SCH (10:00)
[2016-12-10] MEDS: LISINOPRIL 10 MG TABLET PO SCH (10:00)
[2016-12-10] MEDS: ALLOPURINOL 100 MG TABLET PO SCH (10:00)
[2016-12-10] MEDS: ASPIRIN 81 MG TABLET, ENT COATED PO SCH (10:00)
[2016-12-10] MEDS: DOCUSATE SODIUM 100 MG CAPSULE PO SCH (10:00)
[2016-12-10] MEDS: HYDROCHLOROTHIAZIDE 12.5 MG CAPSULE PO SCH (10:00)
[2016-12-10] MEDS: ATENOLOL 50 MG TABLET PO SCH (10:00)
[2016-12-10] MEDS: CHOLECALCIFEROL (D3) 1,000 UNIT TABLET PO SCH (10:00)
[2016-12-10] MEDS ORDERED: ONDANSETRON HCL INJ/PF 4 MG/2 ML SDV ONE ×2 (14:02→17:41)
--- NOTE | 2016-12-10 16:39 | PROGRESS NOTE E ---
Progress Note NAME: DOMENIC ESQUEDA : 1940 AGE: 75Y DATE: 12/10/2016 ROOM: 402 SUBJECTIVE: I found the patient resting in bed in no acute distress; however, he is complaining of early satiety and resultant nausea after just a few bites. He denies any vomiting or abdominal pain. He denies chest pain or palpitations or other cardiac symptoms. He denies fevers or chills and states he did move his bowels but they are slow. He had a hard small stool yesterday morning and again during the night. The patient is complaining of right leg pain that he describes as "bony pain" in the middle of the thigh. He does not recall injuring it while here but reports falling at home prior to his admission to the hospital. He denies swelling or loss of function but does report some numbness over the surface of the skin. He describes the pain as sharp, stabbing, non-constant, radiates into the hip with certain movements. Aggravated by weightbearing and relieved by rest and certain positions without any other associated symptoms. OBJECTIVE: VITAL SIGNS: Nurses notes reviewed and discussed with the nurse at the bedside, vital signs are stable. GENERAL: Patient is alert and oriented to person, place, and time. RESPIRATORY: He is breathing easily without any respiratory distress, he does have some end expiratory basilar crackles but no chuy rales, wheezes, or rhonchi. ABDOMEN: His abdomen is in fact soft, nontender with good bowel sounds throughout the abdomen. He is thin. There are no palpable masses or loops of bowel. GENITOURINARY: Draper catheter is in place and has been changed to a 16 Kinyarwanda, the gross hematuria present yesterday is less visible today. The nurses continue the routine scheduled flushes of the catheter. EXTREMITIES: His extremities show no edema and he moves all 4 extremities without difficulty and follows commands. LABORATORY: Reviewed. ASSESSMENT: 1. BLADDER MASS. 2. HEMATURIA. 3. ACUTE BLOOD LOSS ANEMIA. 4. RIGHT LEG PAIN. PLAN: He has been accepted at [facility] for urologic evaluation, however, they continue to have no beds available as of this morning. The patient remains stable for transfer to an acute facility but I do not believe he is stable for discharge home at this time given the waxing and waning nature of his hematuria. Fortunately his hemoglobin remains stable. For now, continue current care. Awaiting transfer. We will check a right hip and femur x-rays looking for an occult fracture. DICTATING PHYSICIAN: SARAH NARVAEZ M.D. [id number] PHY#: [id number] ID: [id number] JOB#: [id number] ACCT: [id number] cc: >
[2016-12-10] MEDS ORDERED: ONDANSETRON HCL INJ/PF 4 MG/2 ML SDV IV PRN (18:44)
[2016-12-11 06:27] LABS: ABSOLUTE BASOPHILS # (AUTO) 0.1 10^3/uL (0.0-0.2); ABSOLUTE EOSINOPHILS # (AUTO) 0.3 10^3/uL (0.0-0.6); ABSOLUTE LYMPHOCYTES (AUTO) 0.9 10^3/uL (0.5-4.7); ABSOLUTE MONOCYTES (AUTO) 0.6 10^3/uL (0.1-1.4); ABSOLUTE NEUT (AUTO) 6.1 10^3/uL (1.7-8.2); BASOPHILS % (AUTO) 0.8 % (0-2); EOSINOPHILS % (AUTO) 3.6 % (0-6); HEMATOCRIT 26.9 % (37.9-51.0); HEMOGLOBIN 8.9 g/dL (13.5-17.0); HGB HCT DIFFERENCE -0.2; LYMPHOCYTES % (AUTO) 11.7 % (13-45); MEAN CORPUSCULAR HEMOGLOBIN 25.9 pg (27.0-33.4); MEAN CORPUSCULAR HGB CONC 32.9 g/dL (32.0-36.0); MEAN CORPUSCULAR VOLUME 79 fl (80-97); MONOCYTES % (AUTO) 7.6 % (3-13); RED BLOOD COUNT 3.42 10^6/uL (4.35-5.55); RED CELL DISTRIBUTION WIDTH 15.8 % (11.5-14.0); SEGMENTED NEUTROPHILS % (AUTO) 76.3 % (42-78)
[2016-12-11 08:38] LABS: ABSOLUTE BASOPHILS # (AUTO) 0.1 10^3/uL (0.0-0.2); ABSOLUTE EOSINOPHILS # (AUTO) 0.3 10^3/uL (0.0-0.6); ABSOLUTE LYMPHOCYTES (AUTO) 0.8 10^3/uL (0.5-4.7); ABSOLUTE MONOCYTES (AUTO) 0.5 10^3/uL (0.1-1.4); ABSOLUTE NEUT (AUTO) 5.7 10^3/uL (1.7-8.2); BASOPHILS % (AUTO) 1.2 % (0-2); EOSINOPHILS % (AUTO) 3.5 % (0-6); HEMATOCRIT 27.8 % (37.9-51.0); HGB HCT DIFFERENCE -0.8; LYMPHOCYTES % (AUTO) 11.3 % (13-45); MEAN CORPUSCULAR HEMOGLOBIN 25.8 pg (27.0-33.4); MEAN CORPUSCULAR HGB CONC 32.5 g/dL (32.0-36.0); MEAN CORPUSCULAR VOLUME 79 fl (80-97); MONOCYTES % (AUTO) 6.7 % (3-13); RED CELL DISTRIBUTION WIDTH 16.1 % (11.5-14.0); SEGMENTED NEUTROPHILS % (AUTO) 77.3 % (42-78); WHITE BLOOD COUNT 7.3 10^3/uL (4.0-10.5)
[2016-12-11] MEDS: ATENOLOL 50 MG TABLET PO SCH (09:36)
[2016-12-11] MEDS: ASPIRIN 81 MG TABLET, ENT COATED PO SCH (09:36)
[2016-12-11] MEDS: CHOLECALCIFEROL (D3) 1,000 UNIT TABLET PO SCH (09:36)
[2016-12-11] MEDS: DOCUSATE SODIUM 100 MG CAPSULE PO SCH (09:36)
[2016-12-11] MEDS: MEGESTROL ACETATE 20 MG TABLET PO SCH (09:36)
[2016-12-11] MEDS: LISINOPRIL 10 MG TABLET PO SCH (09:36)
[2016-12-11] MEDS: ALLOPURINOL 100 MG TABLET PO SCH (09:36)
[2016-12-11] MEDS: HYDROCHLOROTHIAZIDE 12.5 MG CAPSULE PO SCH (09:36)
[2016-12-11 12:08] VITALS: BP 122/63
[2016-12-11 17:50] LABS: ANION GAP 7 (5-19); BLOOD UREA NITROGEN 8 mg/dL (7-20); CALCIUM 9.7 mg/dL (8.4-10.2); CARBON DIOXIDE 19 mmol/L (22-30); CHLORIDE 109 mmol/L (98-107); CREATININE RESULT 1.11 mg/dL (0.52-1.25); GLUCOSE 86 mg/dL (75-110); MAGNESIUM 1.8 mg/dL (1.6-2.3); POTASSIUM 3.8 mmol/L (3.6-5.0); SODIUM 134.9 mmol/L (137-145)
--- NOTE | 2016-12-12 08:09 | DISCHARGE SUMMARY E ---
Discharge Summary NAME: DOMENIC ESQUEDA : 1940 AGE: 75Y ADMITTED: 12/02/2016 DISCHARGED: 12/11/2016 DISCHARGE DIAGNOSES: 1. Bladder mass. 2. Hematuria secondary to the above. 3. Acute blood loss anemia secondary to the above. 4. Severe protein-calorie malnutrition possibly secondary to the above. DISCHARGE MEDICATIONS: 1. Allopurinol 200 mg daily. 2. Atenolol 25 mg daily. 3. Vitamin D3 daily. 4. Lipitor 20 mg at bedtime. 5. Hydrochlorothiazide 12.5 daily. 6. Lisinopril 10 mg daily. 7. Megace 20 mg daily. CHIEF COMPLAINT: "I have blood in my urine." HOSPITAL COURSE: The patient is a 75-year-old male with underlying hypertension, gout, depression for the last 3 months without suicidal or homicidal ideation who presented to the Emergency Department for the evaluation of blood in his urine. He describes a several month history of difficulty with urination, and over the last 3 months, he has lost approximately 25 pounds unintentionally. He has had a very poor appetite and will sometimes go days without eating. He has general lower abdominal discomfort particularly in and around the bladder but no dysuric symptoms. He had previously had a CT scan in July of this year that revealed a soft tissue fullness in the right side of the bladder. He was unaware of the need to follow up with Urology at that time. During this hospital stay, he was seen by Hematology/Oncology and sent for repeat CT of the chest, abdomen and pelvis which showed a large bladder mass at which point urologic evaluation was requested at a tertiary care center. My colleague, Dr. Holloway, spoke with Dr. Spear, Urology at [facility], who graciously agreed to accept the patient in transfer for further evaluation and management. Unfortunately, a bed never became available, and the patient lingered here during this time. A Draper catheter remained in place and eventually cleared. As of today, he has clear yellow urine in the bag, and it is free flowing. His antiplatelet therapy was held during his hospitalization. His abdominal discomfort improved as his bladder was decompressed. At this point, he is stable for discharge home and can continue at outpatient evaluation of his bladder mass. Arrangements have been made with home health to continue the Draper catheter until such time as he is evaluated by Urology. Staff has contacted Dr. Spear' office and has made arrangements for outpatient followup. He is instructed to return to the hospital if catheter stops flowing or if he sees worsening bleeding in and about the urine or if he were to experience high fevers, worsening abdominal pain, chills, etc. He states clear understanding and a willingness to comply with medical direction. He understands his condition is not urgent and does not require immediate transfer to a tertiary care center but, in fact, can be managed as an outpatient at this point. He agrees with the treatment plan outlined above. At this point, he is hemodynamically stable for discharge. DICTATING PHYSICIAN: SARAH NARVAEZ M.D. [id number] PHY#: [id number] ID: [id number] JOB#: [id number] ACCT: [id number] cc:BINU VILLANUEVA M.D., LARRY M.D. >
== END 2016-12-11 14:22 | disposition home health service (06) | DRG 811 ==
LOC: ER 19:39 → EH 21:37 → UNDOADMOB 21:37 → EH 23:00 → 4N 12-02 02:23 → OBSVTOIN 12-02 10:02
PROVIDERS: ADMIT Family Medicine; ATTEND Family Medicine
PROC: 30233N1 Transfusion of Nonautologous Red Blood Cells into Peripheral Vein, Percutaneous Approach (ICD-10-PCS; principal; 2016-12-03)
DX: D62 Acute posthemorrhagic anemia (principal); E43 Unspecified severe protein-calorie malnutrition; Z68.1 Body mass index [BMI] 19.9 or less, adult; N17.9 Acute kidney failure, unspecified; E87.0 Hyperosmolality and hypernatremia; N32.9 Bladder disorder, unspecified; R31.0 Gross hematuria; F32.9 Major depressive disorder, single episode, unspecified; M10.9 Gout, unspecified; D63.0 Anemia in neoplastic disease; E83.52 Hypercalcemia; E78.5 Hyperlipidemia, unspecified; I12.9 Hypertensive chronic kidney disease with stage 1 through stage 4 chronic kidney disease, or unspecified chronic kidney disease; N18.3 Chronic kidney disease, stage 3 (moderate); E86.0 Dehydration; Z79.899 Other long term (current) drug therapy; Z90.79 Acquired absence of other genital organ(s); Z92.3 Personal history of irradiation; Z60.2 Problems related to living alone; Z88.0 Allergy status to penicillin; Z80.0 Family history of malignant neoplasm of digestive organs
CPT/HCPCS: 36415; 36430; 71010; 71260; 74177; 78306; 80048; 80053; 81001; 82378; 82550; 82553; 82607; 82728; 82746; 82784; 83540; 83550; 83735; 83883; 83970; 84100; 84134; 84153; 84443; 84484; 85025; 85045; 86320; 86850; 86900; 86901; 86920; 87086; 93005; 93010; 99291; A9503; G0378; G8978-GP; G8979-GP; J1644; J1940; J2405; J3490; J7030; P9016; Q0139; Q9969

== ENCOUNTER 2016-12-11 20:14 | Emergency (ER) | payer MEDICARE, OTHER ==
[2016-12-11] MEDS ORDERED: LIDOCAINE 2% URO-JET 5 ML KIT MM ONE (20:30)
--- NOTE | 2016-12-11 22:15 | ER Document Report ---
ED GI/ - General Chief Complaint: Blood in Catheter Stated Complaint: CATHERER BLEEDING Time Seen by Provider: 12/11/16 22:03 Notes: Patient is a 75-year-old male who comes emergency department for chief complaint of blood in his Draper catheter, he states the bag filled up with blood , he emptied it, and it filled up again with blood. He reports pain in his lower abdomen. Patient denies nausea or vomiting, flank pain, fever or chills. Patient states he had a Draper inserted when he was admitted to the hospital here after he was having difficulty with urine output. Patient states that he had been waiting to go to [place] because of a bladder mass that could potentially need surgery. Patient has already had a prostatectomy. TRAVEL OUTSIDE OF THE U[place]S. IN LAST 30 DAYS: No - Related Data Allergies/Adverse Reactions: Penicillins Allergy (Verified 08/24/16 12:42) Past Medical History - General Information source: Patient - Social History Smoking Status: Never Smoker Frequency of alcohol use: None Drug Abuse: None Lives with: Alone Family History: Reviewed & Not Pertinent Patient has suicidal ideation: No Patient has homicidal ideation: No - Past Medical History Cardiac Medical History: Reports: Hx Hypercholesterolemia, Hx Hypertension Denies: Hx Congestive Heart Failure, Hx DVT, Hx Heart Attack, Hx Pulmonary Embolism Pulmonary Medical History: Denies: Hx Asthma, Hx COPD, Hx Sleep Apnea Neurological Medical History: Denies: Hx Seizures Endocrine Medical History: Denies: Hx Diabetes Mellitus Type 1, Hx Diabetes Mellitus Type 2, Hx Hyperthyroidism, Hx Hypothyroidism Renal/ Medical History: Denies: Hx Peritoneal Dialysis Malignancy Medical History: Reports Hx Prostate Cancer GI Medical History: Denies: Hx Cirrhosis, Hx Gastroesophageal Reflux Disease, Hx Hepatitis Musculoskeltal Medical History: Reports Hx Gout Psychiatric Medical History: Reports: Hx Depression Infectious Medical History: Denies: Hx C-Diff, Hx Hepatitis, Hx MRSA Past Surgical History: Reports: Hx Genitourinary Surgery - Prostatectomy?, Other - Prostatectomy, 2001, with postoperative radiation treatment for carcinoma. - Immunizations Hx Diphtheria, Pertussis, Tetanus Vaccination: Yes Review of Systems - Review of Systems Constitutional: No symptoms reported EENT: No symptoms reported Cardiovascular: No symptoms reported Respiratory: No symptoms reported Gastrointestinal: No symptoms reported Genitourinary: See HPI Male Genitourinary: No symptoms reported Musculoskeletal: No symptoms reported Skin: No symptoms reported Hematologic/Lymphatic: No symptoms reported Neurological/Psychological: No symptoms reported Physical Exam - Vital signs Vitals: Temp Pulse Resp BP Pulse Ox 98.5 F 95 16 142/56 H 100 12/11/16 20:29 12/11/16 20:29 12/11/16 20:29 12/11/16 20:29 12/11/16 20:29 Interpretation: Normal - General General appearance: Appears well, Alert - HEENT Head: Normocephalic, Atraumatic Eyes: Normal Pupils: PERRL - Respiratory Respiratory status: No respiratory distress Chest status: Nontender Breath sounds: Normal. No: Decreased air movement, Wheezing Chest palpation: Normal - Cardiovascular Rhythm: Regular. No: Tachycardia Heart sounds: Normal auscultation, S1 appreciated, S2 appreciated Murmur: No - Abdominal Inspection: Normal Distension: No distension Bowel sounds: Normal Tenderness: Nontender. No: Tender, Guarding Organomegaly: No organomegaly - Genitourinary Inspection: Other - Draper catheter in place with leg bag, there is blood in the bag, no abnormality noted of the scrotum or penis - Back Back: Normal, Nontender - Extremities General upper extremity: Normal inspection, Nontender, Normal color, Normal ROM , Normal temperature General lower extremity: Normal inspection, Nontender, Normal color, Normal ROM , Normal temperature, Normal weight bearing. No: Oscar's sign - Neurological Neuro grossly intact: Yes Cognition: Normal Orientation: AAOx4 [place] Coma Scale Eye Opening: Spontaneous [place] Coma Scale Verbal: Oriented [place] Coma Scale Motor: Obeys Commands [place] Coma Scale Total: 15 Speech: Normal Motor strength normal: LUE, RUE, LLE, RLE Sensory: Normal - Psychological Associated symptoms: Normal affect, Normal mood - Skin Skin Temperature: Warm Skin Moisture: Dry Skin Color: Normal Course - Re-evaluation Re-evalutation: 12/11/16 22:17 Patient admitted here on 12/02/16, apparently went home today 8 days later and still did not have a transfer bed available at [facility]. Patient states he was not having gross hematuria earlier when he went home but started having it almost immediately after going home. Has obvious gross hematuria in the catheter at bedside. 12/12/16 02:20 Finally able to obtain labs and replace Draper catheter. There remains hematuria with mixed in blood but no chuy hematuria on the new Draper placement. Urine shows white blood cells, blood, no bacteria, no nitrates. Culture placed. Because of mild leukocytosis compared to prior patient given Bactrim. Discussed with Dr. Spain, recommends urology consultation. Spoke with Dr. Duong Martinez, urology conveyor mechanic, discussed HPI, presentation, workup. He recommends that because patient still has a functioning Draper catheter and his blood counts are not decreased, that patient follow-up with the [facility] neurology as planned with return precautions. I discussed this with patient, he states he is in agreement with the plan. Patient states that he was called earlier today and told that he has a primary care follow-up on the which needs to be established before the urology follow-up can be performed providing transport for him, he states that he is also having a home health person coming 3 times a week now. Discussed return precautions in detail again, patient will be started on Bactrim pending culture follow-up, patient states understanding and agreement. - Vital Signs Vital signs: Temp Pulse Resp BP Pulse Ox 97.8 F 91 18 137/80 H 98 12/12/16 04:20 12/12/16 04:20 12/12/16 04:20 12/12/16 04:20 12/12/16 04:20 - Laboratory Result Diagrams: 12/11/16 23:57 12/11/16 23:57 Laboratory results interpreted by me: 12/11/16 12/11/16 12/11/16 23:57 23:57 23:57 WBC 10.6 H RBC 3.69 L Hgb 9.7 L Hct 28.9 L MCV 78 L MCH 26.2 L RDW 16.2 H Seg Neutrophils % 83.9 H Lymphocytes % 8.2 L Absolute Neutrophils 8.9 H APTT 44.1 H Sodium 134.7 L Est GFR (Non-Af Amer) 57 L Calcium 11.3 H Urine Protein Urine Blood Ur Leukocyte Esterase 12/12/16 00:55 WBC RBC Hgb Hct MCV MCH RDW Seg Neutrophils % Lymphocytes % Absolute Neutrophils APTT Sodium Est GFR (Non-Af Amer) Calcium Urine Protein 100 H Urine Blood MODERATE H Ur Leukocyte Esterase MODERATE H Discharge - Discharge Clinical Impression: Hematuria Condition: Stable Disposition: HOME, SELF-CARE Additional Instructions: Discussed with Dr. Martinez, urology. Your blood counts do not show a concerning drop, the recommendation is to follow-up first with your primary care on the , then with Urology for management of suspected bladder mass. Take the antibiotic as directed to avoid development of an infection. Return to the hospital immediately for any concerning or worsening symptoms including fever, vomiting, abdominal pain, blocked catheter with no urine output , dizziness, or any other concerning symptoms. Prescriptions: Sulfamethoxazole/Trimethoprim [Bactrim Ds Tablet] 1 each PO BID #14 tablet
[2016-12-12 00:07] LABS: ABSOLUTE EOSINOPHILS # (AUTO) 0.3 10^3/uL (0.0-0.6); ABSOLUTE LYMPHOCYTES (AUTO) 0.9 10^3/uL (0.5-4.7); ABSOLUTE MONOCYTES (AUTO) 0.5 10^3/uL (0.1-1.4); ABSOLUTE NEUT (AUTO) 8.9 10^3/uL (1.7-8.2); BASOPHILS % (AUTO) 0.4 % (0-2); EOSINOPHILS % (AUTO) 2.4 % (0-6); HEMATOCRIT 28.9 % (37.9-51.0); HEMOGLOBIN 9.7 g/dL (13.5-17.0); HGB HCT DIFFERENCE 0.2; LYMPHOCYTES % (AUTO) 8.2 % (13-45); MEAN CORPUSCULAR HEMOGLOBIN 26.2 pg (27.0-33.4); MEAN CORPUSCULAR HGB CONC 33.5 g/dL (32.0-36.0); MEAN CORPUSCULAR VOLUME 78 fl (80-97); MONOCYTES % (AUTO) 5.1 % (3-13); RED BLOOD COUNT 3.69 10^6/uL (4.35-5.55); RED CELL DISTRIBUTION WIDTH 16.2 % (11.5-14.0); SEGMENTED NEUTROPHILS % (AUTO) 83.9 % (42-78); WHITE BLOOD COUNT 10.6 10^3/uL (4.0-10.5)
[2016-12-12 00:20] LABS: ANION GAP 9 (5-19); BLOOD UREA NITROGEN 10 mg/dL (7-20); CALCIUM 11.3 mg/dL (8.4-10.2); CARBON DIOXIDE 23 mmol/L (22-30); CHLORIDE 103 mmol/L (98-107); CREATININE RESULT 1.23 mg/dL (0.52-1.25); GLUCOSE 89 mg/dL (75-110); POTASSIUM 4.3 mmol/L (3.6-5.0); SODIUM 134.7 mmol/L (137-145)
[2016-12-12 00:38] LABS: PROTHROMBIN TIME 13.6 SEC (11.4-15.4)
[2016-12-12 00:39] LABS: PARTIAL THROMBOPLASTIN TIME 44.1 SEC (23.5-35.8)
[2016-12-12 01:32] LABS: APPEARANCE,URINE SLIGHTLY-CLOUDY; BILIRUBIN,URINE NEGATIVE (NEGATIVE); GLUCOSE, URINE NEGATIVE (NEGATIVE); KETONES,URINE NEGATIVE (NEGATIVE); LEUKOCYTE ESTERASE,URINE MODERATE (NEGATIVE); NITRITE,URINE NEGATIVE (NEGATIVE); PROTEIN,URINE 100 mg/dL (NEGATIVE); URINE SPECIFIC GRAVITY 1.008; UROBILINOGEN,URINE NEGATIVE mg/dL (<2.0)
[2016-12-12] MEDS ORDERED: CEPHALEXIN 500 MG CAPSULE PO ONE (02:47)
[2016-12-12] MEDS ORDERED: SULFAMETHOXAZOLE/TRIMETHOPRIM 800-160 MG TABLET PO ONE (03:06)
[2016-12-12 04:32] VITALS: BP 137/80
== END 2016-12-12 04:20 | disposition home or self-care (01) ==
LOC: ER 20:14
DX: R31.0 Gross hematuria (principal); R10.30 Lower abdominal pain, unspecified; N32.89 Other specified disorders of bladder; I10 Essential (primary) hypertension; E11.9 Type 2 diabetes mellitus without complications; D72.829 Elevated white blood cell count, unspecified; Z90.79 Acquired absence of other genital organ(s); Z88.0 Allergy status to penicillin; Z85.46 Personal history of malignant neoplasm of prostate
CPT/HCPCS: 99283; 51702; 36415; 87086; 85025; 85610; 85730; 80048; 81001; A9270 ×2; J3490

== ENCOUNTER 2016-12-18 16:17 | Emergency (ER) | payer MEDICARE, OTHER ==
--- NOTE | 2016-12-18 16:36 | ER Document Report ---
ED Dizziness/Weakness - General Mode of Arrival: Medic Information source: Patient TRAVEL OUTSIDE OF THE [place] IN LAST 30 DAYS: No - HPI Patient complains to provider of: Weakness Onset: This morning Onset/Duration: Gradual, Persistent Associated symptoms: Dizzy, Loss of strength - Right leg, pain, Weak all over, Other - hematuria <SKYLAR MAYES - Last Filed: 12/19/16 00:09> <JUNE MUSE - Last Filed: 12/19/16 00:33> - General Chief Complaint: General Weakness Stated Complaint: WEAKNESS Time Seen by Provider: 12/18/16 16:22 Notes: Patient is a 75-year-old male, who was recently diagnosed with a bladder mass, presenting to the emergency department concerned of increasing weakness and pain to his right leg. Patient states that the weakness has been progressively worsening over the past 2 months. Today patient states that he cannot stand without feeling like he is going to blackout. Patient states that he has always been able to find a seat before he actually passes out. Patient continues to experience hematuria as well. Patient also states that he is having difficulty finding Dr. Rodriguez's office. Patient states that he went to the address and called the phone number and there was "no such doctor." Patient is also having confusion about how to set up transportation for his doctor's appointment in [place] coming up on 12/23/2016. (SKYLAR MAYES) - Related Data Allergies/Adverse Reactions: Penicillins Allergy (Verified 08/24/16 12:42) Past Medical History - General Information source: Patient - Social History Smoking Status: Never Smoker Cigarette use (# per day): No Frequency of alcohol use: None Lives with: Alone Family History: Reviewed & Not Pertinent - Past Medical History Cardiac Medical History: Reports: Hx Hypercholesterolemia, Hx Hypertension Malignancy Medical History: Reports Hx Prostate Cancer Musculoskeltal Medical History: Reports Hx Gout Psychiatric Medical History: Reports: Hx Depression Past Surgical History: Reports: Hx Genitourinary Surgery - Prostatectomy?, Other - Prostatectomy, 2001, with postoperative radiation treatment for carcinoma. - Immunizations Hx Diphtheria, Pertussis, Tetanus Vaccination: Yes <SKYLAR MAYES - Last Filed: 12/19/16 00:09> Review of Systems - Review of Systems Constitutional: See HPI, Weakness EENT: No symptoms reported Cardiovascular: No symptoms reported Respiratory: No symptoms reported Gastrointestinal: No symptoms reported Genitourinary: See HPI, Hematuria Male Genitourinary: No symptoms reported Musculoskeletal: See HPI, Other - Right leg pain Skin: No symptoms reported Hematologic/Lymphatic: No symptoms reported Neurological/Psychological: No symptoms reported -: Yes All other systems reviewed and negative <SUGEYSKYLAR - Last Filed: 12/19/16 00:09> Physical Exam <SUGEYSKYLAR - Last Filed: 12/19/16 00:09> <JUNE MUSE - Last Filed: 12/19/16 00:33> - Vital signs Vitals: Temp Pulse Resp BP Pulse Ox 97.8 F 89 17 110/70 96 12/18/16 17:00 12/18/16 17:00 12/18/16 17:00 12/18/16 17:00 12/18/16 17:00 - Notes Notes: GENERAL: Alert, interacts well. Cachectic. No acute distress. HEAD: Normocephalic, atraumatic. EYES: Pupils equal, round, and reactive to light. Extraocular movements intact. ENT: Oral mucosa moist, tongue midline. NECK: Full range of motion. Supple. Trachea midline. LUNGS: Clear to auscultation bilaterally, no wheezes, rales, or rhonchi. No respiratory distress. HEART: Regular rate and rhythm. No murmurs, gallops, or rubs. ABDOMEN: Soft, non-tender. Non-distended. Bowel sounds present in all 4 quadrants. EXTREMITIES: Area of swelling and bony protuberance to the lateral aspect of the right mid-upper femur. Moves all 4 extremities spontaneously. No cyanosis. NEUROLOGICAL: Alert and oriented x3. Normal speech. PSYCH: Normal affect, normal mood. SKIN: Warm, dry, normal turgor. No rashes or lesions noted. (SUGEYSKYLAR) Course - Laboratory Result Diagrams: 12/18/16 17:40 12/18/16 17:40 - Consults Dr. Jensen Time consulted: 20:15 Dr. Watson Time consulted: 22:40 Dr. Cleary Time consulted: 23:07 [facility] Transfer Line Time consulted: 23:25 Dr. Baldwin Time consulted: 23:39 <SKYLAR MAYES - Last Filed: 12/19/16 00:09> - Laboratory Result Diagrams: 12/18/16 17:40 12/18/16 17:40 <JUNE MUSE - Last Filed: 12/19/16 00:33> - Re-evaluation Re-evalutation: 12/19/16 00:30 CBC shows leukocytosis of 13.6, anemia with hemoglobin 9.8, platelets normal, coags normal, there is acute renal failure with a BUN of 36 and creatinine of 2.27, glucose is elevated 149, he is hypercalcemic. Cardiac enzymes negative, LFTs normal, urinalysis shows 100 protein, 50 of glucose, 20 ketones and large blood. Patient does not need a blood transfusion at this time. CT scan shows stable mild to moderate right hydronephrosis with a bladder mass that is partially obstructing the ureter and is growing into the muscle as well. 12/19/16 00:31 Initially discussed patient and the acute renal failure with Dr. Jensen who is concerned that there may be obstruction and we do not have urology fire protection fabricator here , CAT scan did confirm partial obstruction, CBI was placed urine is now running clear and there are no longer large clots. Discussed patient with physicians at [facility] who were happy to accept the patient however they do not have any beds tonight. I then discussed with the patient who states he does not care where he goes so long as he can get treatment for this mass. I discussed the case with Dr. Baldwin at [facility] and he is happy to accept this patient with the hospitalist consulting. Patient will be transferred to [facility]. (JUNE MUSE) - Vital Signs Vital signs: Temp Pulse Resp BP Pulse Ox 97.8 F 89 15 120/65 99 12/18/16 17:00 12/18/16 17:00 12/18/16 23:01 12/18/16 23:01 12/18/16 22:00 - Laboratory Laboratory results interpreted by me: 12/18/16 12/18/16 12/18/16 17:40 17:40 17:52 WBC 13.6 H RBC 3.85 L Hgb 9.8 L Hct 30.4 L MCV 79 L MCH 25.4 L RDW 16.1 H Seg Neutrophils % 86.2 H Lymphocytes % 9.0 L Absolute Neutrophils 11.7 H BUN 36 H Creatinine 2.27 H Est GFR ( Amer) 34 L Est GFR (Non-Af Amer) 28 L Glucose 149 H Calcium 12.1 H* AST 15 L Creatine Kinase < 20 L Albumin 3.2 L Urine Protein 100 H Urine Glucose (UA) 50 H Urine Ketones 20 H Urine Blood LARGE H - EKG Interpretation by Me Additional EKG results interpreted by me: 12/19/16 00:31 EKG shows sinus rhythm at a rate of 83, normal axis, normal intervals, no ST segment elevations or depressions, isolated T-wave inversions noted in aVL per my interpretation. (JUNE MUSE) - Consults Dr. Jensen Reason for consultation: 12/18/16 20:16 discussed patient's case with Dr. Jensen, who is concerned we may be missing some sort of obstruction and would like a CT performed before he accepts the patient. 12/18/16 22:12 Discussed results with patient and Dr. Jensen, and both agree to transfer as there is no urology here. (SKYLAR MAYES) Dr. Watson Reason for consultation: 12/18/16 22:[address] Watson from [facility] urology about patient's case, and he agrees to consult the patient, but the patient must be admitted to the hospitalist. 12/18/16 23:16 (SKYLAR MAYES) Dr. Cleary Reason for consultation: 12/18/16 23:[address] Cleary, hospitalist, who agrees to accept the patient for transfer to [facility], but there is a wait at this time. (SKYLAR MAYES) [facility] Transfer Line Reason for consultation: 12/18/16 23:28 Called [facility] Transfer Line to reach urologist and hospitalist. 12/18/16 23:45 Called transfer line to reach hospitalist. (SKYLAR MAYES) Dr. Baldwin Reason for consultation: 12/18/16 23:[address] Baldwin, a urologist from [facility], about patient's case. He says he would be happy to consult the patient, but believes it would be more appropriate to admit to the hospitalist. 12/18/16 23:50 Dr. Baldwin spoke with hospitalist regarding the patient's case and states that the hospitalist would rather Dr. Baldwin admit the patient, and the hospitalist agrees to consult. Dr. Baldwin agrees to accept the patient. (SKYLAR MAYES) Discharge <SKYLAR MAYES - Last Filed: 12/19/16 00:09> <JUNE MUSE - Last Filed: 12/19/16 00:33> - Discharge Clinical Impression: Malignant neoplasm of trigone of urinary bladder, Acute blood loss anemia, Hydronephrosis of right kidney, Gross hematuria Acute renal failure superimposed on stage 3 chronic kidney disease Qualifiers: Acute renal failure type: unspecified Qualified Code(s): N17.9 - Acute kidney failure, unspecified; N18.3 - Chronic kidney disease, stage 3 (moderate) Condition: Fair Disposition: [facility] [employer] Attestation: 12/19/16 00:33 I personally performed the services described in the documentation, reviewed and edited the documentation which was dictated to the scribe in my presence, and it accurately records my words and actions. (JUNE MUSE) Scribe Documentation - Scribe Written by Keny:: Keny Carmen, 12/18/2016 1636 acting as scribe for :: Jf <SKYLAR MAYES - Last Filed: 12/19/16 00:09>
[2016-12-18 17:58] LABS: ABSOLUTE LYMPHOCYTES (AUTO) 1.2 10^3/uL (0.5-4.7); ABSOLUTE MONOCYTES (AUTO) 0.6 10^3/uL (0.1-1.4); ABSOLUTE NEUT (AUTO) 11.7 10^3/uL (1.7-8.2); BASOPHILS % (AUTO) 0.3 % (0-2); HEMATOCRIT 30.4 % (37.9-51.0); HEMOGLOBIN 9.8 g/dL (13.5-17.0); MEAN CORPUSCULAR HEMOGLOBIN 25.4 pg (27.0-33.4); MEAN CORPUSCULAR HGB CONC 32.1 g/dL (32.0-36.0); MEAN CORPUSCULAR VOLUME 79 fl (80-97); MONOCYTES % (AUTO) 4.5 % (3-13); RED BLOOD COUNT 3.85 10^6/uL (4.35-5.55); RED CELL DISTRIBUTION WIDTH 16.1 % (11.5-14.0); SEGMENTED NEUTROPHILS % (AUTO) 86.2 % (42-78); WHITE BLOOD COUNT 13.6 10^3/uL (4.0-10.5)
[2016-12-18 18:05] LABS: PROTHROMBIN TIME 13.5 SEC (11.4-15.4)
[2016-12-18 18:16] LABS: ALANINE AMINOTRANSFERASE 21 U/L (21-72); ALBUMIN 3.2 g/dL (3.5-5.0); ALKALINE PHOSPHATASE 77 U/L (38-126); ANION GAP 12 (5-19); ASPARTATE AMINO TRANSFERASE 15 U/L (17-59); BILIRUBIN,DIRECT 0.3 mg/dL (0.0-0.4); BILIRUBIN,TOTAL 0.4 mg/dL (0.2-1.3); BLOOD UREA NITROGEN 36 mg/dL (7-20); CARBON DIOXIDE 27 mmol/L (22-30); CHLORIDE 101 mmol/L (98-107); CREATININE RESULT 2.27 mg/dL (0.52-1.25); GLUCOSE 149 mg/dL (75-110); POTASSIUM 4.7 mmol/L (3.6-5.0); SODIUM 139.9 mmol/L (137-145); TOTAL PROTEIN 6.3 g/dL (6.3-8.2)
[2016-12-18 18:28] LABS: CREATINE KINASE MB 0.23 ng/mL (<4.55)
[2016-12-18 18:29] LABS: CREATINE KINASE < 20 U/L (55-170); TROPONIN I < 0.012 ng/mL
[2016-12-18 18:36] LABS: CALCIUM 12.1 mg/dL (8.4-10.2)
--- NOTE | 2016-12-18 18:36 | EKG REPORT ---
SEVERITY:- OTHERWISE NORMAL ECG - SINUS RHYTHM BORDERLINE RIGHT AXIS DEVIATION : Confirmed by: Saqib Ruiz MD 18-Dec-2016 18:36:17
[2016-12-18] MEDS ORDERED: NORMAL SALINE 1000 ML 1,000 ML IV ONE (18:42)
[2016-12-18 18:58] LABS: APPEARANCE,URINE TURBID; BILIRUBIN,URINE NEGATIVE (NEGATIVE); GLUCOSE, URINE 50 mg/dL (NEGATIVE); KETONES,URINE 20 mg/dL (NEGATIVE); LEUKOCYTE ESTERASE,URINE NEGATIVE (NEGATIVE); NITRITE,URINE NEGATIVE (NEGATIVE); PROTEIN,URINE 100 mg/dL (NEGATIVE); URINE SPECIFIC GRAVITY 1.029; UROBILINOGEN,URINE NEGATIVE mg/dL (<2.0)
--- NOTE | 2016-12-18 21:31 | RADIOLOGY REPORT (SQ) ---
EXAM DESCRIPTION: CT LTD RENAL STONE PROTOCOL ON COMPLETED DATE/TIME: 12/18/2016 9:02 pm REASON FOR STUDY: look for obstructing stone COMPARISON: 12/02/2016 TECHNIQUE: CT scan of the abdomen and pelvis performed without intravenous or oral contrast. Images reviewed with lung, soft tissue, and bone windows. Reconstructed coronal and sagittal MPR images revi ewed. All images stored on PACS. All CT scanners at this facility use dose modulation, iterative reconstruction, and/or weight based d osing when appropriate to reduce radiation dose to as low as reasonably achievable (ALARA). [facility]: Dose Right [facility]: CareDose [facility]: Dose Right [facility]: Teradose 4D [facility]: CheckPoint HR RADIATION DOSE: 4.80mGy. LIMITATIONS: None. FINDINGS: LOWER CHEST: No significant findings. No nodules or infiltrates. NON-CONTRASTED LIVER, SPLEEN, ADRENALS: Small hepatic cysts. Evaluation limited by lack of IV contra st. No identified significant masses. PANCREAS: No masses. No peripancreatic inflammatory changes. GALLBLADDER: No identified stones by CT criteria. No inflammatory changes to suggest cholecystitis. RIGHT KIDNEY AND URETER: No suspicious masses. Assessment limited by lack of IV contrast. Small jagjit cifications. Stable mild-moderate right hydroureteronephrosis. LEFT KIDNEY AND URETER: No suspicious masses. Assessment limited by lack of IV contrast. No signifi cant calcifications. No hydronephrosis or hydroureter. AORTA AND RETROPERITONEUM: No aneurysm. Stable small nodes. BOWEL AND PERITONEAL CAVITY: No obvious masses or inflammatory changes. No free fluid. APPENDIX: Not visualized. PELVIS, BLADDER, AND ABDOMINAL WALL:No The previously seen complex bladder mass is again noted and sh ows dense material in the lumen of the bladder consistent with hemorrhage. Gas is also present from Draper catheter. Similar bladder mass invasion of the right obturator musculature. . BONES: No acute findings. OTHER: No other significant finding. IMPRESSION: The previously seen complex bladder mass is again noted and shows dense material in the lumen of the bladder consistent with hemorrhage. Gas is also present from Draper catheter. Similar b ladder mass invasion of the right obturator musculature. Stable mild-moderate right hydroureteroneph rosis. TECHNICAL DOCUMENTATION: JOB ID: [id number] Quality ID # [id number]: Final reports with documentation of one or more dose reduction techniques (e.g., Au tomated exposure control, adjustment of the mA and/or kV according to patient size, use of iterative reconstruction technique) 2010 [employer]- All Rights Reserved
[2016-12-18] MEDS ORDERED: ACETAMINOPHEN 325 MG TABLET PO ONE (22:23)
[2016-12-19 02:33] VITALS: BP 114/41
== END 2016-12-19 02:35 | disposition short-term general hospital (02) ==
LOC: ER 16:17
DX: C67.0 Malignant neoplasm of trigone of bladder (principal); R31.0 Gross hematuria; D62 Acute posthemorrhagic anemia; I12.9 Hypertensive chronic kidney disease with stage 1 through stage 4 chronic kidney disease, or unspecified chronic kidney disease; N18.3 Chronic kidney disease, stage 3 (moderate); N17.9 Acute kidney failure, unspecified; N13.30 Unspecified hydronephrosis; R53.1 Weakness; D72.829 Elevated white blood cell count, unspecified; R42 Dizziness and giddiness; M79.604 Pain in right leg; M79.89 Other specified soft tissue disorders; I10 Essential (primary) hypertension; Z85.46 Personal history of malignant neoplasm of prostate; Z92.3 Personal history of irradiation; Z88.0 Allergy status to penicillin
CPT/HCPCS: 93005; 99285; 96360; 96361; 86900; 86901; 36415; 87086; 82553; 86850; 82550; 85025; 85610; 80053; 81001; 84484; 76380; 93010; A9270; J7030

== ENCOUNTER 2017-01-18 12:58 | Inpatient (IN) | payer MEDICARE, OTHER ==
[2017-01-18] MEDS ORDERED: NORMAL SALINE 1000 ML 500 ML IV ONE ×2 (13:09→16:48)
--- NOTE | 2017-01-18 13:41 | ER Document Report ---
ED General - General Stated Complaint: WEAKNESS Time Seen by Provider: 01/18/17 13:08 Mode of Arrival: Medic Information source: Patient, Emergency Med Personnel Cannot obtain history due to: Other - POOR HISTORIAN TRAVEL OUTSIDE OF THE [place] IN LAST 30 DAYS: No - HPI Patient complains to provider of: SAYS HE FELL & COULDN'T GET UP OFF FLOOR. Onset: Other - UNSURE, WAS FOUND ON FLOOR BY RELATIVES THIS AM Associated symptoms: Weakness. denies: Chest pain, Hurts to breath, Shortness of breath Exacerbated by: Denies Relieved by: Denies - Related Data Allergies/Adverse Reactions: Penicillins Allergy (Verified 08/24/16 12:42) Past Medical History - General Information source: Patient - Social History Smoking Status: Unknown if Ever Smoked Frequency of alcohol use: FORMERLY, NONE RECENT Lives with: Alone Family History: Reviewed & Not Pertinent - Past Medical History Cardiac Medical History: Reports: Hx Hypercholesterolemia, Hx Hypertension Denies: Hx Congestive Heart Failure, Hx DVT, Hx Heart Attack, Hx Pulmonary Embolism Pulmonary Medical History: Denies: Hx Asthma, Hx COPD, Hx Sleep Apnea Neurological Medical History: Denies: Hx Seizures Endocrine Medical History: Denies: Hx Diabetes Mellitus Type 1, Hx Diabetes Mellitus Type 2, Hx Hyperthyroidism, Hx Hypothyroidism Renal/ Medical History: Denies: Hx Peritoneal Dialysis Malignancy Medical History: Reports Hx Prostate Cancer GI Medical History: Denies: Hx Cirrhosis, Hx Gastroesophageal Reflux Disease, Hx Hepatitis Musculoskeltal Medical History: Reports Hx Gout Psychiatric Medical History: Reports: Hx Depression Infectious Medical History: Denies: Hx C-Diff, Hx Hepatitis, Hx MRSA Past Surgical History: Reports: Hx Genitourinary Surgery - Prostatectomy?, Other - Prostatectomy, 2001, with postoperative radiation treatment for carcinoma. - Immunizations Hx Diphtheria, Pertussis, Tetanus Vaccination: Yes Review of Systems - Review of Systems Constitutional: Weakness EENT: No symptoms reported Cardiovascular: No symptoms reported. denies: Chest pain Respiratory: No symptoms reported. denies: Short of breath Gastrointestinal: No symptoms reported Genitourinary: No symptoms reported Musculoskeletal: No symptoms reported Skin: No symptoms reported Neurological/Psychological: No symptoms reported Physical Exam - Vital signs Vitals: Temp 97.7 F 01/18/17 13:00 Interpretation: Tachycardic. No: Hypotensive, Tachypneic, Febrile - General General appearance: Appears well, Alert, Other - CACHEXIA In distress: None - HEENT Head: Normocephalic Eyes: Normal Conjunctiva: Normal Ears: Normal Nasal: Normal Mouth/Lips: Normal Mucous membranes: Dry Neck: Normal - Respiratory Respiratory status: No respiratory distress Breath sounds: Normal - Cardiovascular Rhythm: Regular, Tachycardia Heart sounds: Normal auscultation Murmur: No - Abdominal Distension: Other - SCAPHOID Bowel sounds: Hypoactive Tenderness: Nontender - Genitourinary Inspection: Other - CAMEJO - Back Back: Other - R. UROSTOMY, DRAINING PURULENT OPAQUE FLUID - Extremities General upper extremity: Other - ATROPHY General lower extremity: Other - ATROPHY - Neurological Neuro grossly intact: Yes Cognition: Normal Orientation: AAOx4 - Psychological Associated symptoms: Normal affect, Normal mood - Skin Skin Temperature: Warm Skin Moisture: Dry Skin Color: Normal Skin Turgor: Elastic Course - Vital Signs Vital signs: Temp Pulse Resp BP Pulse Ox 97.7 F 20 115/97 H 100 01/18/17 13:00 01/18/17 18:01 01/18/17 18:00 01/18/17 18:01 - Laboratory Result Diagrams: 01/18/17 15:58 01/18/17 17:55 Laboratory results interpreted by me: 01/18/17 01/18/17 01/18/17 15:58 17:13 17:55 WBC 26.7 H Hgb 13.1 L MCH 25.6 L MCHC 31.1 L RDW 16.9 H Seg Neuts % (Manual) 91 H Band Neutrophils % 1 L Lymphocytes % (Manual) 5 L Abs Neuts (Manual) 24.6 H Sodium 154.4 H Chloride 116 H BUN 67 H Creatinine 2.14 H Est GFR ( Amer) 36 L Est GFR (Non-Af Amer) 30 L Glucose 113 H Calcium 14.7 H* Phosphorus Magnesium 2.8 H Albumin 3.2 L Urine Protein >=500 H Urine Blood MODERATE H Ur Leukocyte Esterase MODERATE H 01/18/17 17:55 WBC Hgb MCH MCHC RDW Seg Neuts % (Manual) Band Neutrophils % Lymphocytes % (Manual) Abs Neuts (Manual) Sodium Chloride BUN Creatinine Est GFR ( Amer) Est GFR (Non-Af Amer) Glucose Calcium Phosphorus 5.0 H Magnesium Albumin Urine Protein Urine Blood Ur Leukocyte Esterase - Consults DR. LEMA Time consulted: 17:30 Consulted provider: will come to ER Discharge - Discharge Clinical Impression: Dehydration, Malnutrition, Bladder mass, UTI (urinary tract infection) with pyuria Condition: Fair Disposition: ADMITTED INPATIENT Admitting Provider: Hospitalist Unit Admitted: [facility]
--- NOTE | 2017-01-18 15:13 | RADIOLOGY REPORT (SQ) ---
EXAM DESCRIPTION: CT HEAD WITHOUT COMPLETED DATE/TIME: 01/18/2017 3:01 pm REASON FOR STUDY: ALTERED MENTAL STATUS COMPARISON: None. TECHNIQUE: Axial images acquired through the brain without intravenous contrast. Images reviewed wi th bone, brain and subdural windows. Images stored on PACS. All CT scanners at this facility use dose modulation, iterative reconstruction, and/or weight based d osing when appropriate to reduce radiation dose to as low as reasonably achievable (ALARA). [facility]: Dose Right [facility]: CareDose [facility]: Dose Right [facility]: Teradose 4D [facility]: [employer] RADIATION DOSE: 64.61mGy. LIMITATIONS: None. FINDINGS: VENTRICLES: Prominent. CEREBRUM: No masses. No hemorrhage. No midline shift. Areas of low density in the white matter mos t likely due to chronic micro-vascular ischemic change. No evidence for acute infarction. CEREBELLUM: No masses. No hemorrhage. No alteration of density. No evidence for acute infarction. EXTRAAXIAL SPACES: Age-related involutional change. No fluid collections. No masses. ORBITS AND GLOBE: No intra- or extraconal masses. Normal contour of globe without masses. CALVARIUM: No fracture. PARANASAL SINUSES: No fluid or mucosal thickening. SOFT TISSUES: No mass or hematoma. OTHER: No other significant finding. IMPRESSION: CHRONIC CHANGES OF ATROPHY AND MICROVASCULAR ISCHEMIA. NO ACUTE PROCESS. TECHNICAL DOCUMENTATION: JOB ID: [id number] Quality ID # [id number]: Final reports with documentation of one or more dose reduction techniques (e.g., Au tomated exposure control, adjustment of the mA and/or kV according to patient size, use of iterative reconstruction technique) 2010 [employer]- All Rights Reserved
--- NOTE | 2017-01-18 15:15 | RADIOLOGY REPORT (SQ) ---
EXAM DESCRIPTION: CHEST SINGLE VIEW COMPLETED DATE/TIME: 01/18/2017 3:04 pm REASON FOR STUDY: ALTERED MENTAL STATUS COMPARISON: None. EXAM PARAMETERS: NUMBER OF VIEWS: One view. TECHNIQUE: Single frontal radiographic view of the chest acquired. RADIATION DOSE: NA LIMITATIONS: None. FINDINGS: LUNGS AND PLEURA: No opacities, masses or pneumothorax. No pleural effusion. MEDIASTINUM AND HILAR STRUCTURES: No masses. Contour normal. HEART AND VASCULAR STRUCTURES: Heart normal in size. Normal vasculature. BONES: No acute findings. HARDWARE: None in the chest. OTHER: No other significant finding. IMPRESSION: NO ACUTE RADIOGRAPHIC FINDING IN THE CHEST. TECHNICAL DOCUMENTATION: JOB ID: [id number]
[2017-01-18 16:20] LABS: HEMOGLOBIN 13.1 g/dL (13.5-17.0); HGB HCT DIFFERENCE -2.7; MEAN CORPUSCULAR HEMOGLOBIN 25.6 pg (27.0-33.4); MEAN CORPUSCULAR HGB CONC 31.1 g/dL (32.0-36.0); MEAN CORPUSCULAR VOLUME 82 fl (80-97); RED CELL DISTRIBUTION WIDTH 16.9 % (11.5-14.0); WHITE BLOOD COUNT 26.7 10^3/uL (4.0-10.5)
[2017-01-18 16:37] LABS: BAND NEUTROPHILS % (MANUAL) 1 % (3-5); BASOPHILS % (MANUAL) 0 % (0-2); EOSINOPHILS % (MANUAL) 0 % (0-6); LYMPHOCYTES % (MANUAL) 5 % (13-45); TOTAL CELLS COUNTED 100
[2017-01-18 16:38] LABS: ANISOCYTOSIS SLIGHT; HYPOCHROMASIA SLIGHT
[2017-01-18] MEDS ORDERED: CEFTRIAXONE 1 GM/D5W RTU 50 ML IV ONE (17:03)
[2017-01-18] MEDS ORDERED: NORMAL SALINE 1000 ML 2,000 ML IV ONE (17:30)
[2017-01-18] MEDS ORDERED: VANCOMYCIN HCL 0 MG in DEXTROSE 5%-WATER 250 ML IV NR (17:30)
[2017-01-18 17:41] LABS: APPEARANCE,URINE TURBID; BILIRUBIN,URINE NEGATIVE (NEGATIVE); GLUCOSE, URINE NEGATIVE (NEGATIVE); KETONES,URINE NEGATIVE (NEGATIVE); LEUKOCYTE ESTERASE,URINE MODERATE (NEGATIVE); NITRITE,URINE NEGATIVE (NEGATIVE); PROTEIN,URINE >=500 mg/dL (NEGATIVE); UROBILINOGEN,URINE NEGATIVE mg/dL (<2.0)
[2017-01-18] MEDS ORDERED: IMIPENEM/CILASTATIN SODIUM INJ 500 MG VIAL IV PRN (17:58)
[2017-01-18] MEDS: IMIPENEM/CILASTATIN SODIUM 1,000 MG in NORMAL SALINE 250 ML IV SCH (18:17)
[2017-01-18] MEDS ORDERED: ONDANSETRON HCL INJ/PF 4 MG/2 ML SDV IV PRN (18:19)
[2017-01-18] MEDS ORDERED: OXYCODONE-ACETAMINOPHEN 5-325 MG TABLET PO PRN (18:19)
[2017-01-18] MEDS ORDERED: IPRATROPIUM/ALBUTEROL 0.5-2.5 MG/3 ML AMPUL NEB PRN (18:19)
[2017-01-18] MEDS ORDERED: ACETAMINOPHEN 325 MG TABLET PO PRN (18:19)
[2017-01-18 18:35] LABS: ALANINE AMINOTRANSFERASE 27 U/L (21-72); ALBUMIN 3.2 g/dL (3.5-5.0); ALKALINE PHOSPHATASE 106 U/L (38-126); ANION GAP 14 (5-19); ASPARTATE AMINO TRANSFERASE 30 U/L (17-59); BILIRUBIN,DIRECT 0.4 mg/dL (0.0-0.4); BILIRUBIN,TOTAL 0.8 mg/dL (0.2-1.3); BLOOD UREA NITROGEN 67 mg/dL (7-20); CARBON DIOXIDE 24 mmol/L (22-30); CHLORIDE 116 mmol/L (98-107); CREATINE KINASE 162 U/L (55-170); CREATININE RESULT 2.14 mg/dL (0.52-1.25); GLUCOSE 113 mg/dL (75-110); MAGNESIUM 2.8 mg/dL (1.6-2.3); POTASSIUM 4.1 mmol/L (3.6-5.0); SODIUM 154.4 mmol/L (137-145); TOTAL PROTEIN 6.7 g/dL (6.3-8.2)
[2017-01-18 18:44] LABS: CALCIUM 14.7 mg/dL (8.4-10.2); CREATINE KINASE MB 3.18 ng/mL (<4.55)
[2017-01-18 18:46] LABS: TROPONIN I 0.202 ng/mL
[2017-01-18] MEDS ORDERED: MORPHINE SULFATE 10 MG/ML INJ IV PRN (18:51)
[2017-01-18] MEDS ORDERED: LORAZEPAM INJ 2 MG/1 ML VIAL IV PRN (18:57)
[2017-01-18] MEDS ORDERED: CALCITONIN,SALMON,SYNTHETIC 400 UNIT/2 ML VIAL IM PRN (18:58)
[2017-01-18] MEDS ORDERED: VANCOMYCIN HCL INJ 1000 MG VIAL IV PRN (19:05)
[2017-01-18] MEDS ORDERED: NORMAL SALINE INJ/PF 0.9% 10 ML SDV IV PRN (19:16)
--- NOTE | 2017-01-18 19:19 | Operative Report ---
Operative Report DATE OF SURGERY: 01/18/17 PREOPERATIVE DIAGNOSIS: Septic syndrome POSTOPERATIVE DIAGNOSIS: Same OPERATION: Ultrasound directed insertion of the right femoral vein triple-lumen central venous access catheter SURGEON: JACKIE MATOS ANESTHESIA: Local TISSUE REMOVED OR ALTERED: None COMPLICATIONS: See below none ESTIMATED BLOOD LOSS: Scant INTRAOPERATIVE FINDINGS: See below PROCEDURE: Patient's right groin was exposed, clipped, cleaned with Prudencio wipes 5. The right groin was then prepped and draped in sterile fashion Surgical plan surgical timeout conducted The right femoral vein was scanned with a variable frequency linear transducer. Skin was anesthetized 1% lidocaine with epinephrine, and using the Seldinger technique, real-time with ultrasound guidance, a triple-lumen central venous access catheter set into the right femoral vein. There was excellent blood flow through all 3 lm. Catheter was flushed with saline, secured to the skin with 2-0 silk suture and a Biopatch applied. Postop procedure well sterile dressing applied. Nursing staff instructed to use catheter.
--- NOTE | 2017-01-18 19:20 | RADIOLOGY REPORT (SQ) ---
EXAM DESCRIPTION: CT ABD/PELVIS NO ORAL OR IV COMPLETED DATE/TIME: 01/18/2017 6:50 pm REASON FOR STUDY: bladder mas, sepsis COMPARISON: 12/02/2016 TECHNIQUE: CT scan of the abdomen and pelvis performed without intravenous or oral contrast. Images reviewed with lung, soft tissue, and bone windows. Reconstructed coronal and sagittal MPR images revi ewed. All images stored on PACS. All CT scanners at this facility use dose modulation, iterative reconstruction, and/or weight based d osing when appropriate to reduce radiation dose to as low as reasonably achievable (ALARA). [facility]: Dose Right [facility]: CareDose [facility]: Dose Right [facility]: Teradose 4D [facility]: [employer] RADIATION DOSE: 4.80mGy. LIMITATIONS: Limited history. No contrast in the urinary bladder. FINDINGS: LOWER CHEST: No significant findings. No nodules or infiltrates. NON-CONTRASTED LIVER, SPLEEN, ADRENALS: Evaluation limited by lack of IV contrast. No identified sign ificant masses. PANCREAS: No masses. No peripancreatic inflammatory changes. GALLBLADDER: No identified stones by CT criteria. No inflammatory changes to suggest cholecystitis. RIGHT KIDNEY AND URETER: No suspicious masses. Assessment limited by lack of IV contrast. No signif icant calcifications. Percutaneous nephrostomy. No hydronephrosis. LEFT KIDNEY AND URETER: No suspicious masses. Assessment limited by lack of IV contrast. No signifi cant calcifications. No hydronephrosis or hydroureter. AORTA AND RETROPERITONEUM: No aneurysm. No retroperitoneal masses or adenopathy. BOWEL AND PERITONEAL CAVITY: No obvious masses or inflammatory changes. No free fluid. APPENDIX: Not visualized. PELVIS, BLADDER, AND ABDOMINAL WALL:There is a Draper catheter in the urinary bladder. Previously ade cribed necrotic mass not as well defined, possibly resected. There are several pockets of gas within the urinary bladder to right of midline. BONES: No acute findings. OTHER: Small amount a gas in the right common femoral vein likely iatrogenic. IMPRESSION: Necrotic process in the urinary bladder, presumably status post cystoscopy, but no furth er history is provided. Interval right nephrostomy. No hydronephrosis. TECHNICAL DOCUMENTATION: JOB ID: [id number] Quality ID # [id number]: Final reports with documentation of one or more dose reduction techniques (e.g., Au tomated exposure control, adjustment of the mA and/or kV according to patient size, use of iterative reconstruction technique) 2010 [employer]- All Rights Reserved
[2017-01-18] MEDS ORDERED: VANCOMYCIN HCL 750 MG in DEXTROSE 5%-WATER 250 ML IV ONE (19:30)
[2017-01-18] MEDS ORDERED: MEGESTROL ACETATE SUSP 400 MG/10 ML UDCUP PO ONE (19:45)
[2017-01-18] MEDS ORDERED: PHARMACY COMMUNICATION ORDER MC NR (19:45)
--- NOTE | 2017-01-18 19:48 | PDOC H&P ---
History of Present Illness Admission Date/PCP: 01/18/17 17:55 History of Present Illness: DOMENIC ESQUEDA is a 76 year old male with a history of bladder mas, gout, htn presented to the emergency department with altered mental status. Patient has no family in this area and his family into town from [place]. They apparently found him on the floor. Patient is unable to provide any history at this time. Patient's family was unaware previously that he was this ill. Patient is referred to the hospitalist service for severe sepsis with pyelonephritis. Past Medical History Cardiac Medical History: Reports: Hyperlipidema, Hypertension Denies: Congestive Heart Failure, DVT, Myocardial Infarction, Pulmonary Embolism Pulmonary Medical History: Denies: Asthma, Chronic Obstructive Pulmonary Disease (COPD), Sleep Apnea Neurological Medical History: Denies: Seizures Endocrine Medical History: Denies: Diabetes Mellitus Type 1, Diabetes Mellitus Type 2, Hyperthyroidism, Hypothyroidism GI Medical History: Denies: Cirrhosis, Gastroesophageal Reflux Disease, Hepatitis Musculoskeltal Medical History: Reports: Gout Psychiatric Medical History: Reports: Depression Infectious Medical History: Denies: Clostridium Difficile, Methicillin-Resistant Staph Aureus Past Surgical History Past Surgical History: Reports: Other - Prostatectomy, 2001, with postoperative radiation treatment for carcinoma. Social History Lives with: Alone Smoking Status: Unknown if Ever Smoked Frequency of Alcohol Use: None Drugs: None Hx Prescription Drug Abuse: No - Advance Directive Resuscitation Status: Do Not Resuscitate Family History Family History: Hypertension Parental Family History Reviewed: Yes Children Family History Reviewed: No Sibling(s) Family History Reviewed.: NA Medication/Allergy Home Medications: Allopurinol [Zyloprim 100 mg Tablet] 200 mg PO DAILY 12/02/16 Aspirin [Ecotrin 81 mg EC Tablet] 81 mg PO DAILY 12/02/16 Atorvastatin Calcium [Lipitor 20 mg Tablet] 20 mg PO QHS 12/02/16 Megestrol Acetate [Megace 20 mg Tablet] 20 mg PO DAILY tablet 12/03/16 Allopurinol [Zyloprim 100 mg Tablet] 200 mg PO DAILY tablet 12/11/16 Atenolol [Tenormin 50 mg Tablet] 25 mg PO DAILY #30 tablet 12/11/16 Cholecalciferol (Vitamin D3) [Vitamin D3 1000 Unit Tablet] 2,000 unit PO DAILY tablet 12/11/16 Lisinopril [Prinivil 10 mg Tablet] 10 mg PO DAILY #30 tablet 12/11/16 Allergies/Adverse Reactions: Penicillins Allergy (Verified 08/24/16 12:42) Review of Systems ROS unobtainable: Due to mental status Physical Exam Vital Signs: Temp Pulse Resp BP Pulse Ox 97.7 F 11 L 122/76 99 01/18/17 13:00 01/18/17 16:59 01/18/17 16:59 01/18/17 16:59 General appearance: PRESENT: disheveled, mild distress, other - Cachectic Head exam: PRESENT: atraumatic, normocephalic, other - Muscle wasting Eye exam: PRESENT: conjunctiva pink, EOMI, PERRLA. ABSENT: scleral icterus Ear exam: PRESENT: normal external ear exam Mouth exam: PRESENT: dry mucosa, tongue midline Neck exam: ABSENT: JVD, lymphadenopathy, thyromegaly, tracheal deviation Respiratory exam: PRESENT: clear to auscultation celi. ABSENT: rales, rhonchi, wheezes Cardiovascular exam: PRESENT: RRR, +S1, +S2, systolic murmur, tachycardia. ABSENT: diastolic murmur, gallop, rubs Pulses: PRESENT: +1 pedal pulses bilateral, other Vascular exam: PRESENT: pallor GI/Abdominal exam: PRESENT: hypoactive bowel sounds, soft, tenderness - 3 tender. ABSENT: distended, firm, guarding, mass, Watson's sign, normal bowel sounds, organolmegaly, rebound, rigid Torso Front/Back Image: 1 - nephrostomy tube Rectal exam: PRESENT: deferred Gentrourinary exam: PRESENT: indwelling catheter Extremities exam: PRESENT: clubbing, other - Severe muscle wasting. ABSENT: pedal edema, tenderness Neurological exam: PRESENT: alert, awake, oriented to person, oriented to place , CN II-XII grossly intact. ABSENT: oriented to time, oriented to situation Psychiatric exam: PRESENT: appropriate affect, normal mood. ABSENT: homicidal ideation, suicidal ideation Skin exam: PRESENT: dry, intact, warm. ABSENT: cyanosis, rash Results Laboratory Results: 01/18/17 01/18/17 01/18/17 15:58 17:13 17:55 WBC 26.7 H Hgb 13.1 L Hct 42.0 Plt Count 328 Sodium 154.4 H Carbon Dioxide 24 BUN 67 H Creatinine 2.14 H Calcium 14.7 H* Phosphorus Magnesium 2.8 H Troponin I Albumin 3.2 L Urine Protein >=500 H Urine Blood MODERATE H Ur Leukocyte Esterase MODERATE H Calcium Oxalate Crystal MANY Amorphous Sediment 4+ 01/18/17 01/18/17 17:55 17:55 WBC Hgb Hct Plt Count Sodium Carbon Dioxide BUN Creatinine Calcium Phosphorus 5.0 H Magnesium Troponin I 0.202 Albumin Urine Protein Urine Blood Ur Leukocyte Esterase Calcium Oxalate Crystal Amorphous Sediment Impressions: Chest X-Ray 01/18/17 13:10 IMPRESSION: NO ACUTE RADIOGRAPHIC FINDING IN THE CHEST. Head CT 01/18/17 13:10 IMPRESSION: CHRONIC CHANGES OF ATROPHY AND MICROVASCULAR ISCHEMIA. NO ACUTE PROCESS. Assessment & Plan - Diagnosis (1) Severe sepsis Is this a current diagnosis for this admission?: YesPlan: Secondary to pyelonephritis complicated by nephrostomy tube. (2) Pyelonephritis Is this a current diagnosis for this admission?: YesPlan: Patient on imipenem and vancomycin as it appears as patient been has been recently instrumented. Blood and urine cultures pending [facility] urology has kindly agreed to see this patient. (3) Bladder mass Is this a current diagnosis for this admission?: YesPlan: The patient has undergone some type of bladder resection. We are unsure where or when this was done and patient cannot offer any information. (4) Dehydration Is this a current diagnosis for this admission?: Yes (5) Elevated troponin Is this a current diagnosis for this admission?: YesPlan: Secondary to patient's sepsis and renal failure. (6) Hypernatremia Is this a current diagnosis for this admission?: YesPlan: 2/2 Intravascular volume depletion. Continue hydration with normal saline. (7) Severe protein-calorie malnutrition Is this a current diagnosis for this admission?: YesPlan: Dietary consult. Magic cup 3 times daily and high calorie diet. Add Megace (8) Hypercalcemia Is this a current diagnosis for this admission?: YesPlan: Begin aggressive fluid hydration for this patient. Give IV calcitonin repeat ionized calcium (9) Anemia Qualifiers: Anemia type: iron deficiency Iron deficiency anemia type: chronic blood loss Qualified Code(s): D50.0 - Iron deficiency anemia secondary to blood loss (chronic) Is this a current diagnosis for this admission?: Yes (10) CKD (chronic kidney disease), stage III Is this a current diagnosis for this admission?: YesPlan: Medications should be renally adjusted (11) History of prostatectomy Is this a current diagnosis for this admission?: Yes (12) History of radiation therapy Is this a current diagnosis for this admission?: Yes - Time Time Spent: 50 to 70 Minutes Medications reviewed and adjusted accordingly: Yes - Inpatient Certification Based on my medical assessment, after consideration of the patient's comorbidities, presenting symptoms, or acuity I expect that the services needed warrant INPATIENT care.: Yes I certify that my determination is in accordance with my understanding of Medicare's requirements for reasonable and necessary INPATIENT services [42 CFR 412.3e].: Yes Medical Necessity: Need For IV Fluids, Need For Continuous Telemetry Monitoring , Need for IV Antibiotics, Need for Surgery Post Hospital Care: D/C Jewel Hole Cornerer Documentation
[2017-01-18] MEDS ORDERED: VANCOMYCIN HCL INJ 1000 MG VIAL ONE (22:29)
[2017-01-18] MEDS ORDERED: CALCITONIN,SALMON,SYNTHETIC 400 UNIT/2 ML VIAL ONE (22:30)
[2017-01-18] MEDS: NORMAL SALINE 1000 ML 1,000 ML IV PRN (23:37)
[2017-01-18] MEDS: SENNOSIDES/DOCUSATE 8.6-50 MG 1 EACH TABLET PO SCH (23:38)
[2017-01-18] MEDS: FAMOTIDINE 20 MG TABLET PO SCH (23:41)
[2017-01-19] MEDS ORDERED: HYDROMORPHONE HCL INJ/PF 2 MG/ML AMPULE IV ONE (00:15)
[2017-01-19 01:41] LABS: CREATINE KINASE MB 2.28 ng/mL (<4.55)
[2017-01-19 01:52] LABS: TROPONIN I 0.212 ng/mL
[2017-01-19] MEDS ORDERED: IMIPENEM/CILASTATIN SODIUM INJ 500 MG VIAL IV ONE (01:54)
[2017-01-19] MEDS: IMIPENEM/CILASTATIN SODIUM 1,000 MG in NORMAL SALINE 250 ML IV SCH (02:37)
[2017-01-19] MEDS: NORMAL SALINE 1000 ML 1,000 ML IV PRN ×3 (06:13→20:19)
[2017-01-19 06:52] LABS: ABSOLUTE MONOCYTES (AUTO) 0.8 10^3/uL (0.1-1.4); ABSOLUTE NEUT (AUTO) 17.8 10^3/uL (1.7-8.2); BASOPHILS % (AUTO) 0.1 % (0-2); EOSINOPHILS % (AUTO) 0.1 % (0-6); HEMATOCRIT 31.8 % (37.9-51.0); HGB HCT DIFFERENCE -2.4; LYMPHOCYTES % (AUTO) 5.2 % (13-45); MEAN CORPUSCULAR HEMOGLOBIN 25.7 pg (27.0-33.4); MEAN CORPUSCULAR HGB CONC 30.9 g/dL (32.0-36.0); MEAN CORPUSCULAR VOLUME 83 fl (80-97); MONOCYTES % (AUTO) 4.2 % (3-13); RED BLOOD COUNT 3.82 10^6/uL (4.35-5.55); RED CELL DISTRIBUTION WIDTH 16.7 % (11.5-14.0); SEGMENTED NEUTROPHILS % (AUTO) 90.4 % (42-78); WHITE BLOOD COUNT 19.7 10^3/uL (4.0-10.5)
[2017-01-19 07:01] LABS: ANION GAP 8 (5-19); BLOOD UREA NITROGEN 62 mg/dL (7-20); CARBON DIOXIDE 23 mmol/L (22-30); CHLORIDE 118 mmol/L (98-107); CREATINE KINASE 79 U/L (55-170); GLUCOSE 88 mg/dL (75-110); MAGNESIUM 2.4 mg/dL (1.6-2.3); PHOSPHORUS 4.2 mg/dL (2.5-4.5); POTASSIUM 3.9 mmol/L (3.6-5.0); SODIUM 148.6 mmol/L (137-145)
[2017-01-19 07:13] LABS: CREATINE KINASE MB 2.62 ng/mL (<4.55); TROPONIN I 0.181 ng/mL
[2017-01-19 07:17] LABS: CALCIUM 12.2 mg/dL (8.4-10.2)
[2017-01-19] MEDS ORDERED: HYDROMORPHONE HCL INJ/PF 2 MG/ML AMPULE IV PRN (07:43)
[2017-01-19 07:50] LABS: HEMOGLOBIN 9.8 g/dL (13.5-17.0)
[2017-01-19] MEDS ORDERED: CALCITONIN,SALMON,SYNTHETIC 400 UNIT/2 ML VIAL IM ONE (09:00)
[2017-01-19] MEDS ORDERED: IMIPENEM/CILASTATIN SODIUM 1,000 MG in NORMAL SALINE 250 ML IV SCH (09:00)
[2017-01-19] MEDS: POLYETHYLENE GLYCOL 3350 POWDER 17 GM/1 PACKET PO SCH (10:11)
[2017-01-19] MEDS: FAMOTIDINE 20 MG TABLET PO SCH ×2 (10:11→21:31)
[2017-01-19] MEDS: DOCUSATE SODIUM 100 MG CAPSULE PO SCH ×2 (10:11→17:30)
[2017-01-19] MEDS: MEGESTROL ACETATE SUSP 400 MG/10 ML UDCUP PO SCH (10:11)
[2017-01-19] MEDS ORDERED: BISACODYL 10 MG SUPP.RECT PR ONE (10:30)
--- NOTE | 2017-01-19 13:10 | CONSULTATION REPORT E ---
Consultation Report NAME: DOMENIC ESQUEDA : 1940 AGE: 76Y DATE: 01/19/2017 321 B TO: CARL KELLY M.D. FROM: BOBBY LOU M.D. Requesting Physician IMPRESSION: 1. Poorly differentiated invasive bladder cancer with radiologic findings consistent with extravesical spread on the right side of the bladder. 2. Renal insufficiency. 3. Right hydroureteronephrosis status post insertion of nephrostomy tube approximately 1 month ago. 4. Anemia. 5. Hypercalcemia. 6. Remote history of prostate cancer status post prostatectomy (2001) and adjuvant radiation therapy for local recurrence. 7. Transient loss of consciousness. 8. Urinary tract infection with sepsis. RECOMMENDATIONS: Once he has responded to fluid resuscitation and antibiotics for his UTI, I recommend a followup with Dr. Dinesh Baldwin and with the oncologist who he is seeing at [facility]. PROCEDURES: Exchange of Garcia for a 24-Syrian 3-way Jaspreet catheter. The patient's [address] garcia wasn't draining so it was removed. The patient Was prepped and draped in the routine sterile manner. A 24 Syrian three-way rales catheter was inserted. The drainage was frankly purulent. Sterile saline was used to irrigate the bladder until clear. Total of 20 cc was placed in the balloon and the Garcia was placed to gravity drainage. CONSULTATION: The patient is a 76-year-old gentleman who had a fall at home and was unconscious for an unknown period of time. He states that he was reaching for his cane, but fell and that is the last thing he remembered. His family found him on 01/18/2017 at which point he was sent to the emergency room. His white count was elevated at 19,000. His urine was grossly infected. He had a CAT scan that showed his nephrostomy tube on the right side was in good position and there was no evidence of hydronephrosis. He had a mass in his bladder that was smaller than the mass that was noted [address] I subsequently spoke with Dr. Dinesh Baldwin who states that he resected a portion of the tumor on 12/23/2016, which showed a necrotic muscle invasive tumor. Dr. Baldwin had referred him to the oncologist at [facility] and had also contemplated sending him to [facility] for consideration of further surgery. I have reviewed his social history, family history, past medical history, and review of systems outlined in H and P dated 01/18/[address] Lou and I will not repeat those in this dictation. PHYSICAL EXAMINATION: GENERAL: The patient is a 76-year-old gentleman who appears cachectic and in poor health. He is oriented x3. His affect is appropriate. HEENT/NECK: Extraocular movements are intact. No scleral icterus is noted. No facial lesions are noted. Trachea is midline. LUNGS: No evidence of labored breathing. ABDOMEN: Soft and not distended. GENITALIA: His penis appears normal. His testicles are small, but without mass or tenderness. Scrotum appears normal. RECTAL: Exam was not done (He is status post prostatectomy). EXTREMITIES: Full range of motion. NEUROLOGIC: No focal defects noted. DICTATING PHYSICIAN: CARL KELLY M.D. [id number] PHY#: [id number] ID: [id number] JOB#: [id number] ACCT: [id number] cc:Harvey WHITEHEAD M.D. > MTDD
[2017-01-19 13:35] LABS: PARTIAL THROMBOPLASTIN TIME 42.2 SEC (23.5-35.8); PROTHROMBIN TIME 14.7 SEC (11.4-15.4)
[2017-01-19 14:58] LABS: CREATINE KINASE MB 1.98 ng/mL (<4.55); TROPONIN I 0.122 ng/mL
--- NOTE | 2017-01-19 15:56 | PDOC PROGRESS REPORT ---
Subjective Progress Note for:: 01/19/17 Subjective:: Patient was seen earlier today on morning rounds. Reports generalized pain all over, and am unable to obtain much of her review of systems from him due to alteration in mental status. He is eating breakfast. Physical Exam Vital Signs: Temp Pulse Resp BP Pulse Ox 97.8 F 101 H 16 137/69 H 97 01/19/17 11:49 01/19/17 14:31 01/19/17 14:31 01/19/17 11:49 01/19/17 14:31 Intake & Output 01/18/17 01/19/17 01/20/17 06:59 06:59 06:59 Intake Total 3594 120 Output Total 0 110 Balance 3594 10 Weight 39.5 kg Exam: GENERAL: Frail, cachectic, no acute respiratory distress HEENT: Temporal muscle wasting, Conjunctiva clear, nonicteric, moist mucous membranes, no JVD, midline trachea RESPIRATORY: CTAB CARDIAC: Regular rate and rhythm, no murmurs/gallops/rubs ABDOMEN: Soft, nondistended, active bowel sounds, no rebound, no guarding EXTREMETIES: severe muscle wasting, 1+edema, no clubbing, no cyanosis NEUROLOGIC: CN 2-12 grossly intact, A+Ox1, no focal deficits SKIN: Coccyx eschar Results Laboratory Results: 01/19/17 06:20 01/19/17 06:20 01/18/17 01/19/17 01/19/17 21:35 06:20 06:20 WBC 19.7 H RBC 3.82 L Hgb 9.8 L D Hct 31.8 L MCV 83 MCH 25.7 L MCHC 30.9 L RDW 16.7 H Plt Count 223 Seg Neutrophils % 90.4 H Lymphocytes % 5.2 L Monocytes % 4.2 Eosinophils % 0.1 Basophils % 0.1 Absolute Neutrophils 17.8 H Absolute Lymphocytes 1.0 Absolute Monocytes 0.8 Absolute Eosinophils 0.0 Absolute Basophils 0.0 Sodium 148.6 H Potassium 3.9 Chloride 118 H Carbon Dioxide 23 Anion Gap 8 BUN 62 H Creatinine 1.70 H Est GFR ( Amer) 47 L Est GFR (Non-Af Amer) 39 L Glucose 88 Lactic Acid 1.3 Calcium 12.2 H* Ionized Calcium Kingsley Phosphorus 4.2 Magnesium 2.4 H 01/19/17 06:50 WBC RBC Hgb Hct MCV MCH MCHC RDW Plt Count Seg Neutrophils % Lymphocytes % Monocytes % Eosinophils % Basophils % Absolute Neutrophils Absolute Lymphocytes Absolute Monocytes Absolute Eosinophils Absolute Basophils Sodium Potassium Chloride Carbon Dioxide Anion Gap BUN Creatinine Est GFR ( Amer) Est GFR (Non-Af Amer) Glucose Lactic Acid Calcium Ionized Calcium Kingsley 1.67 H Phosphorus Magnesium 01/18/17 01/19/17 01/19/17 21:35 01:07 01:07 Creatine Kinase 123 89 CK-MB (CK-2) 2.28 Troponin I 0.212 01/19/17 01/19/17 01/19/17 06:20 06:20 12:40 Creatine Kinase 79 69 CK-MB (CK-2) 2.62 Troponin I 0.181 01/19/17 14:00 Creatine Kinase CK-MB (CK-2) 1.98 Troponin I 0.122 Impressions: Abdomen/Pelvis CT 01/18/17 00:00 IMPRESSION: Necrotic process in the urinary bladder, presumably status post cystoscopy, but no further history is provided. Interval right nephrostomy. No hydronephrosis. Chest X-Ray 01/18/17 13:10 IMPRESSION: NO ACUTE RADIOGRAPHIC FINDING IN THE CHEST. Head CT 01/18/17 13:10 IMPRESSION: CHRONIC CHANGES OF ATROPHY AND MICROVASCULAR ISCHEMIA. NO ACUTE PROCESS. Assessment & Plan - Diagnosis (1) Severe sepsis Is this a current diagnosis for this admission?: YesPlan: Secondary to pyelonephritis complicated by nephrostomy tube and chronic indwelling garcia (2) Pyelonephritis Is this a current diagnosis for this admission?: YesPlan: Patient on imipenem and vancomycin as patient been has been recently instrumented. Blood and urine cultures pending Appreciate urology input. 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 Patient had a recent TURBT on December 23. He apparently was receiving some type of radiation therapy. Patient truly is a candidate for hospice is poor functional status, hypercalcemia, and currently severe sepsis. (4) Dehydration Is this a current diagnosis for this admission?: Yes (5) Elevated troponin Is this a current diagnosis for this admission?: YesPlan: Secondary to patient's sepsis and renal failure. (6) Hypernatremia Is this a current diagnosis for this admission?: YesPlan: 2/2 Intravascular volume depletion. Continue hydration with normal saline. (7) Severe protein-calorie malnutrition Is this a current diagnosis for this admission?: YesPlan: Dietary consult. Magic cup 3 times daily and high calorie diet. Add Megace (8) Hypercalcemia Is this a current diagnosis for this admission?: YesPlan: Begin aggressive fluid hydration for this patient. Give IV calcitonin repeat ionized calcium. (9) Anemia Qualifiers: Anemia type: iron deficiency Iron deficiency anemia type: chronic blood loss Qualified Code(s): D50.0 - Iron deficiency anemia secondary to blood loss (chronic) Is this a current diagnosis for this admission?: Yes (10) CKD (chronic kidney disease), stage III Is this a current diagnosis for this admission?: YesPlan: Medications should be renally adjusted (11) History of prostatectomy Is this a current diagnosis for this admission?: Yes (12) History of radiation therapy Is this a current diagnosis for this admission?: Yes - Time Time Spent with patient: 25-34 minutes Medications reviewed and adjusted accordingly: Yes Anticipated discharge: Hospice
[2017-01-19] MEDS: IMIPENEM/CILASTATIN SODIUM 500 MG in NORMAL SALINE 100 ML IV SCH (17:30)
[2017-01-19] MEDS: SENNOSIDES/DOCUSATE 8.6-50 MG 1 EACH TABLET PO SCH (21:30)
[2017-01-19] MEDS: CALCITONIN,SALMON,SYNTHETIC 400 UNIT/2 ML VIAL IM SCH (21:31)
[2017-01-20] MEDS: NORMAL SALINE 1000 ML 1,000 ML IV PRN (03:29)
[2017-01-20 04:14] LABS: ABSOLUTE LYMPHOCYTES (AUTO) 0.8 10^3/uL (0.5-4.7); ABSOLUTE MONOCYTES (AUTO) 0.5 10^3/uL (0.1-1.4); ABSOLUTE NEUT (AUTO) 14.2 10^3/uL (1.7-8.2); BASOPHILS % (AUTO) 0.1 % (0-2); EOSINOPHILS % (AUTO) 0.2 % (0-6); HEMATOCRIT 30.4 % (37.9-51.0); HEMOGLOBIN 9.3 g/dL (13.5-17.0); HGB HCT DIFFERENCE -2.5; LYMPHOCYTES % (AUTO) 5.3 % (13-45); MEAN CORPUSCULAR HEMOGLOBIN 25.5 pg (27.0-33.4); MEAN CORPUSCULAR HGB CONC 30.7 g/dL (32.0-36.0); MEAN CORPUSCULAR VOLUME 83 fl (80-97); MONOCYTES % (AUTO) 3.2 % (3-13); RED BLOOD COUNT 3.66 10^6/uL (4.35-5.55); RED CELL DISTRIBUTION WIDTH 16.6 % (11.5-14.0); SEGMENTED NEUTROPHILS % (AUTO) 91.2 % (42-78); WHITE BLOOD COUNT 15.6 10^3/uL (4.0-10.5)
[2017-01-20 04:30] LABS: ANION GAP 9 (5-19); BLOOD UREA NITROGEN 44 mg/dL (7-20); CALCIUM 11.2 mg/dL (8.4-10.2); CARBON DIOXIDE 20 mmol/L (22-30); CHLORIDE 122 mmol/L (98-107); GLUCOSE 71 mg/dL (75-110); MAGNESIUM 2.1 mg/dL (1.6-2.3); POTASSIUM 3.6 mmol/L (3.6-5.0); SODIUM 150.9 mmol/L (137-145)
[2017-01-20] MEDS: IMIPENEM/CILASTATIN SODIUM 500 MG in NORMAL SALINE 100 ML IV SCH ×2 (05:53→17:38)
[2017-01-20] MEDS ORDERED: VANCOMYCIN HCL 500 MG in DEXTROSE 5%-WATER 100 ML IV SCH (10:00)
[2017-01-20] MEDS: 1/2 NORMAL SALINE 1,000 ML IV PRN ×2 (10:42→23:26)
[2017-01-20] MEDS: DOCUSATE SODIUM 100 MG CAPSULE PO SCH ×2 (10:43→17:37)
[2017-01-20] MEDS: ALLOPURINOL 100 MG TABLET PO SCH ×2 (10:43→17:38)
[2017-01-20] MEDS: FAMOTIDINE 20 MG TABLET PO SCH ×2 (10:43→21:24)
[2017-01-20] MEDS: CALCITONIN,SALMON,SYNTHETIC 400 UNIT/2 ML VIAL IM SCH ×2 (10:44→21:24)
[2017-01-20] MEDS: ASPIRIN 81 MG TABLET, ENT COATED PO SCH (10:44)
[2017-01-20] MEDS: POLYETHYLENE GLYCOL 3350 POWDER 17 GM/1 PACKET PO SCH (10:44)
[2017-01-20] MEDS: MEGESTROL ACETATE SUSP 400 MG/10 ML UDCUP PO SCH (10:49)
[2017-01-20] MEDS ORDERED: OXYCODONE HCL IR 5 MG TABLET PO PRN (16:48)
--- NOTE | 2017-01-20 16:55 | PDOC PROGRESS REPORT ---
Subjective Progress Note for:: 01/20/17 Subjective:: Patient was seen earlier today on morning rounds. Reports generalized pain all over. Family, his cousins, were present for discussion and evaluation. Patient reports that he did not want his daughter knowing about his condition or making decisions for him. Physical Exam Vital Signs: Temp Pulse Resp BP Pulse Ox 97.8 F 87 20 134/66 H 99 01/20/17 03:29 01/20/17 06:53 01/20/17 03:29 01/20/17 03:29 01/20/17 03:29 Intake & Output 01/19/17 01/20/17 01/21/17 06:59 06:59 06:59 Intake Total 3594 4070 Output Total 0 1490 Balance 3594 2580 Weight 39.5 kg 41.6 kg Exam: GENERAL: Frail, cachectic, no acute respiratory distress HEENT: Temporal muscle wasting, Conjunctiva clear, nonicteric, moist mucous membranes, no JVD, midline trachea RESPIRATORY: CTAB CARDIAC: Regular rate and rhythm, no murmurs/gallops/rubs ABDOMEN: Soft, nondistended, active bowel sounds, no rebound, no guarding EXTREMETIES: severe muscle wasting, 1+edema, no clubbing, no cyanosis NEUROLOGIC: CN 2-12 grossly intact, A+Ox2, no focal deficits SKIN: Coccyx eschar Results Laboratory Results: 01/20/17 03:34 01/20/17 03:34 01/20/17 01/20/17 03:34 03:34 WBC 15.6 H RBC 3.66 L Hgb 9.3 L Hct 30.4 L MCV 83 MCH 25.5 L MCHC 30.7 L RDW 16.6 H Plt Count 201 Seg Neutrophils % 91.2 H Lymphocytes % 5.3 L Monocytes % 3.2 Eosinophils % 0.2 Basophils % 0.1 Absolute Neutrophils 14.2 H Absolute Lymphocytes 0.8 Absolute Monocytes 0.5 Absolute Eosinophils 0.0 Absolute Basophils 0.0 Sodium 150.9 H Potassium 3.6 Chloride 122 H Carbon Dioxide 20 L Anion Gap 9 BUN 44 H Creatinine 1.40 H Est GFR ( Amer) 59 L Est GFR (Non-Af Amer) 49 L Glucose 71 L Calcium 11.2 H Magnesium 2.1 01/18/17 01/19/17 01/19/17 21:35 01:07 01:07 Creatine Kinase 123 89 CK-MB (CK-2) 2.28 Troponin I 0.212 01/19/17 01/19/17 01/19/17 06:20 06:20 12:40 Creatine Kinase 79 69 CK-MB (CK-2) 2.62 Troponin I 0.181 01/19/17 14:00 Creatine Kinase CK-MB (CK-2) 1.98 Troponin I 0.122 Impressions: Abdomen/Pelvis CT 01/18/17 00:00 IMPRESSION: Necrotic process in the urinary bladder, presumably status post cystoscopy, but no further history is provided. Interval right nephrostomy. No hydronephrosis. Chest X-Ray 01/18/17 13:10 IMPRESSION: NO ACUTE RADIOGRAPHIC FINDING IN THE CHEST. Head CT 01/18/17 13:10 IMPRESSION: CHRONIC CHANGES OF ATROPHY AND MICROVASCULAR ISCHEMIA. NO ACUTE PROCESS. Assessment & Plan - Diagnosis (1) Severe sepsis Is this a current diagnosis for this admission?: YesPlan: Secondary to pyelonephritis complicated by nephrostomy tube and chronic indwelling garcia (2) Pyelonephritis Is this a current diagnosis for this admission?: YesPlan: Patient on imipenem and vancomycin as patient been has been recently instrumented. Blood and urine cultures pending Appreciate urology input. 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 Patient had a recent TURBT on December 23. He apparently was receiving some type of radiation therapy. Patient truly is a candidate for hospice is poor functional status, hypercalcemia, and currently severe sepsis. Because of this, his family has elected to take him home with hospice, but they are located in [place] and are anticipating will be ready for discharge by this weekend (4) Dehydration Is this a current diagnosis for this admission?: Yes (5) Elevated troponin Is this a current diagnosis for this admission?: YesPlan: Secondary to patient's sepsis and renal failure. (6) Hypernatremia Is this a current diagnosis for this admission?: YesPlan: 2/2 NS use. Continue hydration with 1/2 normal saline. (7) Severe protein-calorie malnutrition Is this a current diagnosis for this admission?: YesPlan: Dietary consult. Magic cup 3 times daily and high calorie diet. Add Megace (8) Hypercalcemia Is this a current diagnosis for this admission?: YesPlan: Begin aggressive fluid hydration for this patient. Give IV calcitonin repeat ionized calcium. (9) Anemia Qualifiers: Anemia type: iron deficiency Iron deficiency anemia type: chronic blood loss Qualified Code(s): D50.0 - Iron deficiency anemia secondary to blood loss (chronic) Is this a current diagnosis for this admission?: Yes (10) CKD (chronic kidney disease), stage III Is this a current diagnosis for this admission?: YesPlan: Medications should be renally adjusted Has improved with hydration (11) History of prostatectomy Is this a current diagnosis for this admission?: Yes (12) History of radiation therapy Is this a current diagnosis for this admission?: Yes - Time Time Spent with patient: 58 minutes of time was spent with patient and family and patient including physical examination, formulation of this plan, coordination of care, and patient and family education Time Spent with patient: 35 or more minutes Medications reviewed and adjusted accordingly: Yes - Inpatient Certification Based on my medical assessment, after consideration of the patient's comorbidities, presenting symptoms, or acuity I expect that the services needed warrant INPATIENT care.: Yes I certify that my determination is in accordance with my understanding of Medicare's requirements for reasonable and necessary INPATIENT services [42 CFR 412.3e].: Yes Medical Necessity: Need For IV Fluids, Need for IV Antibiotics 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
[2017-01-20] MEDS: SENNOSIDES/DOCUSATE 8.6-50 MG 1 EACH TABLET PO SCH (21:24)
[2017-01-21] MEDS: IMIPENEM/CILASTATIN SODIUM 500 MG in NORMAL SALINE 100 ML IV SCH (05:43)
[2017-01-21] MEDS: POLYETHYLENE GLYCOL 3350 POWDER 17 GM/1 PACKET PO SCH (09:31)
[2017-01-21] MEDS: 1/2 NORMAL SALINE 1,000 ML IV PRN (09:33)
[2017-01-21] MEDS: DOCUSATE SODIUM 100 MG CAPSULE PO SCH ×2 (09:34→17:57)
[2017-01-21] MEDS: FAMOTIDINE 20 MG TABLET PO SCH ×2 (09:34→22:20)
[2017-01-21] MEDS: CALCITONIN,SALMON,SYNTHETIC 400 UNIT/2 ML VIAL IM SCH ×2 (09:34→22:21)
[2017-01-21] MEDS: MEGESTROL ACETATE SUSP 400 MG/10 ML UDCUP PO SCH (09:34)
[2017-01-21] MEDS: ALLOPURINOL 100 MG TABLET PO SCH ×2 (09:34→17:57)
[2017-01-21] MEDS: ASPIRIN 81 MG TABLET, ENT COATED PO SCH (09:34)
[2017-01-21] MEDS ORDERED: VANCOMYCIN HCL 500 MG in DEXTROSE 5%-WATER 100 ML IV SCH (16:00)
--- NOTE | 2017-01-21 16:15 | PDOC PROGRESS REPORT ---
Subjective Progress Note for:: 01/21/17 Subjective:: Patient reports that he is feeling better. Denies any chills or fever. No diarrhea. No shortness of breath or chest pain. Able to tolerate oral intake. No nausea or vomiting. Patient reports hallucination intermittently especially last night. Physical Exam Vital Signs: Temp Pulse Resp BP Pulse Ox 98.4 F 96 18 144/66 H 99 01/21/17 15:29 01/21/17 15:29 01/21/17 15:29 01/21/17 15:29 01/21/17 15:29 Intake & Output 01/20/17 01/21/17 01/22/17 06:59 06:59 06:59 Intake Total 4070 1700 360 Output Total 1490 1080 380 Balance 2580 620 -20 Weight 41.6 kg 49 kg General appearance: PRESENT: no acute distress, cooperative, thin Head exam: PRESENT: normocephalic Eye exam: PRESENT: EOMI Mouth exam: PRESENT: moist, neck supple Neck exam: ABSENT: JVD Respiratory exam: PRESENT: clear to auscultation celi. ABSENT: rhonchi, wheezes Cardiovascular exam: PRESENT: RRR. ABSENT: gallop GI/Abdominal exam: PRESENT: hypoactive bowel sounds, soft. ABSENT: distended Extremities exam: ABSENT: pedal edema Neurological exam: PRESENT: alert, awake, oriented to situation Skin exam: PRESENT: dry, warm. ABSENT: cyanosis Results Laboratory Results: 01/20/17 03:34 01/20/17 03:34 01/18/17 01/19/17 01/19/17 21:35 01:07 01:07 Creatine Kinase 123 89 CK-MB (CK-2) 2.28 Troponin I 0.212 01/19/17 01/19/17 01/19/17 06:20 06:20 12:40 Creatine Kinase 79 69 CK-MB (CK-2) 2.62 Troponin I 0.181 01/19/17 14:00 Creatine Kinase CK-MB (CK-2) 1.98 Troponin I 0.122 Impressions: Abdomen/Pelvis CT 01/18/17 00:00 IMPRESSION: Necrotic process in the urinary bladder, presumably status post cystoscopy, but no further history is provided. Interval right nephrostomy. No hydronephrosis. Chest X-Ray 06/25/17 13:10 IMPRESSION: NO ACUTE RADIOGRAPHIC FINDING IN THE CHEST. Head CT 01/18/17 13:10 IMPRESSION: CHRONIC CHANGES OF ATROPHY AND MICROVASCULAR ISCHEMIA. NO ACUTE PROCESS. Assessment & Plan - Diagnosis (1) Severe sepsis Is this a current diagnosis for this admission?: Yes (3) Acute renal failure Qualifiers: Acute renal failure type: unspecified Qualified Code(s): N17.9 - Acute kidney failure, unspecified Is this a current diagnosis for this admission?: Yes (4) Dehydration Is this a current diagnosis for this admission?: Yes (5) Hypernatremia Is this a current diagnosis for this admission?: Yes (6) Hypercalcemia Is this a current diagnosis for this admission?: Yes (7) Bladder mass Is this a current diagnosis for this admission?: Yes (8) Anemia of chronic disease Is this a current diagnosis for this admission?: Yes (9) Hydronephrosis, right Is this a current diagnosis for this admission?: Yes (10) Gout Qualifiers: Gout site: unspecified site Gout etiology: unspecified cause Chronicity: unspecified Qualified Code(s): M10.9 - Gout, unspecified Is this a current diagnosis for this admission?: Yes (11) Essential hypertension Is this a current diagnosis for this admission?: Yes (12) Hyperlipidemia Qualifiers: Hyperlipidemia type: unspecified Qualified Code(s): E78.5 - Hyperlipidemia, unspecified Is this a current diagnosis for this admission?: Yes (13) Depression Qualifiers: Depression Type: unspecified Qualified Code(s): F32.9 - Major depressive disorder, single episode, unspecified (14) History of prostate cancer Is this a current diagnosis for this admission?: Yes - Time Time Spent with patient: 25-34 minutes - Plan Summary Plan Summary: We are going to discontinue vancomycin and Primaxin and instead maintain the patient on Invanz. Continue gentle IV hydration. Continue to monitor electrolytes. Discontinue benzodiazepines and narcotics. Continue supportive care.
[2017-01-21] MEDS ORDERED: ERTAPENEM SODIUM 1 GM in NORMAL SALINE 50 ML IV SCH (18:00)
[2017-01-21] MEDS: SENNOSIDES/DOCUSATE 8.6-50 MG 1 EACH TABLET PO SCH (22:19)
[2017-01-22] MEDS: 1/2 NORMAL SALINE 1,000 ML IV PRN ×2 (06:00→22:28)
[2017-01-22 06:30] LABS: ANION GAP 5 (5-19); BLOOD UREA NITROGEN 21 mg/dL (7-20); CALCIUM 10.2 mg/dL (8.4-10.2); CARBON DIOXIDE 21 mmol/L (22-30); CHLORIDE 112 mmol/L (98-107); CREATININE RESULT 1.13 mg/dL (0.52-1.25); GLUCOSE 85 mg/dL (75-110); POTASSIUM 3.4 mmol/L (3.6-5.0); SODIUM 137.9 mmol/L (137-145)
[2017-01-22] MEDS ORDERED: ERTAPENEM SODIUM INJ 1 GM VIAL IV SCH (10:00)
[2017-01-22] MEDS: MEGESTROL ACETATE SUSP 400 MG/10 ML UDCUP PO SCH (10:06)
[2017-01-22] MEDS: POLYETHYLENE GLYCOL 3350 POWDER 17 GM/1 PACKET PO SCH (10:06)
[2017-01-22] MEDS: ASPIRIN 81 MG TABLET, ENT COATED PO SCH (10:07)
[2017-01-22] MEDS: FAMOTIDINE 20 MG TABLET PO SCH ×2 (10:07→22:17)
[2017-01-22] MEDS: ALLOPURINOL 100 MG TABLET PO SCH ×2 (10:07→18:19)
[2017-01-22] MEDS: DOCUSATE SODIUM 100 MG CAPSULE PO SCH ×2 (10:07→18:09)
[2017-01-22] MEDS ORDERED: ONDANSETRON HCL INJ/PF 4 MG/2 ML SDV IV PRN (10:28)
--- NOTE | 2017-01-22 10:28 | PDOC PROGRESS REPORT ---
Subjective Progress Note for:: 01/22/17 Subjective:: Patient is more cooperative today. Patient is not refusing the medications anymore. Denies any pain, shortness of breath, diarrhea, nausea or vomiting, chills nor fever. Physical Exam Vital Signs: Temp Pulse Resp BP Pulse Ox 98.3 F 99 18 143/78 H 100 01/22/17 07:57 01/22/17 07:57 01/22/17 07:57 01/22/17 07:57 01/22/17 07:57 Intake & Output 01/21/17 01/22/17 01/23/17 06:59 06:59 06:59 Intake Total 1700 3459 Output Total 1080 2630 Balance 620 829 Weight 48 kg General appearance: PRESENT: no acute distress, cooperative, thin Head exam: PRESENT: normocephalic Eye exam: PRESENT: EOMI Mouth exam: PRESENT: moist, neck supple Neck exam: ABSENT: JVD Respiratory exam: PRESENT: clear to auscultation celi. ABSENT: rhonchi, wheezes Cardiovascular exam: PRESENT: RRR. ABSENT: gallop GI/Abdominal exam: PRESENT: normal bowel sounds, soft. ABSENT: distended, tenderness Extremities exam: ABSENT: pedal edema Neurological exam: PRESENT: alert, awake, oriented to situation Skin exam: PRESENT: dry, warm. ABSENT: cyanosis Results Laboratory Results: 01/20/17 03:34 01/22/17 06:00 01/22/17 06:00 Sodium 137.9 Potassium 3.4 L Chloride 112 H Carbon Dioxide 21 L Anion Gap 5 BUN 21 H Creatinine 1.13 Est GFR ( Amer) > 60 Est GFR (Non-Af Amer) > 60 Glucose 85 Calcium 10.2 01/18/17 01/19/17 01/19/17 21:35 01:07 01:07 Creatine Kinase 123 89 CK-MB (CK-2) 2.28 Troponin I 0.212 01/19/17 01/19/17 01/19/17 06:20 06:20 12:40 Creatine Kinase 79 69 CK-MB (CK-2) 2.62 Troponin I 0.181 01/19/17 14:00 Creatine Kinase CK-MB (CK-2) 1.98 Troponin I 0.122 Impressions: Abdomen/Pelvis CT 01/18/17 00:00 IMPRESSION: Necrotic process in the urinary bladder, presumably status post cystoscopy, but no further history is provided. Interval right nephrostomy. No hydronephrosis. Chest X-Ray 01/18/17 13:10 IMPRESSION: NO ACUTE RADIOGRAPHIC FINDING IN THE CHEST. Head CT 01/18/17 13:10 IMPRESSION: CHRONIC CHANGES OF ATROPHY AND MICROVASCULAR ISCHEMIA. NO ACUTE PROCESS. Assessment & Plan - Diagnosis (1) Severe sepsis Is this a current diagnosis for this admission?: Yes (3) Acute renal failure Qualifiers: Acute renal failure type: unspecified Qualified Code(s): N17.9 - Acute kidney failure, unspecified Is this a current diagnosis for this admission?: Yes (4) Dehydration Is this a current diagnosis for this admission?: Yes (5) Hypernatremia Is this a current diagnosis for this admission?: Yes (6) Hypercalcemia Is this a current diagnosis for this admission?: Yes (7) Bladder mass Is this a current diagnosis for this admission?: Yes (8) Anemia of chronic disease Is this a current diagnosis for this admission?: Yes (9) Hydronephrosis, right Is this a current diagnosis for this admission?: Yes (10) Gout Qualifiers: Gout site: unspecified site Gout etiology: unspecified cause Chronicity: unspecified Qualified Code(s): M10.9 - Gout, unspecified Is this a current diagnosis for this admission?: Yes (11) Essential hypertension Is this a current diagnosis for this admission?: Yes (12) Hyperlipidemia Qualifiers: Hyperlipidemia type: unspecified Qualified Code(s): E78.5 - Hyperlipidemia, unspecified Is this a current diagnosis for this admission?: Yes (13) Depression Qualifiers: Depression Type: unspecified Qualified Code(s): F32.9 - Major depressive disorder, single episode, unspecified (14) History of prostate cancer Is this a current diagnosis for this admission?: Yes - Time Time Spent with patient: 25-34 minutes - Plan Summary Plan Summary: We are going to continue current antibiotic. Continue physical therapy. Calcium level is now normal. We will decrease his IV fluid. We will recheck the level in the morning and if he continues to be normal we will discontinue the calcitonin as well. Continue other medications and supportive care. We will plan giving antibiotics intravenously while the patient is here and hopefully by the weekend family will be able to take him home back to [place] where he will avail the services of hospice.
[2017-01-22] MEDS ORDERED: POTASSIUM CHLORIDE 10 MEQ TABLET.SA PO ONE (10:30)
[2017-01-22] MEDS: ERTAPENEM SODIUM 0.5 GM in NORMAL SALINE 50 ML IV SCH (11:21)
[2017-01-22] MEDS: CALCITONIN,SALMON,SYNTHETIC 400 UNIT/2 ML VIAL IM SCH ×2 (11:22→22:17)
[2017-01-22] MEDS: SENNOSIDES/DOCUSATE 8.6-50 MG 1 EACH TABLET PO SCH (22:17)
[2017-01-23 06:33] LABS: ANION GAP 5 (5-19); BLOOD UREA NITROGEN 15 mg/dL (7-20); CALCIUM 9.9 mg/dL (8.4-10.2); CARBON DIOXIDE 23 mmol/L (22-30); CHLORIDE 112 mmol/L (98-107); GLUCOSE 89 mg/dL (75-110); POTASSIUM 3.9 mmol/L (3.6-5.0); SODIUM 139.8 mmol/L (137-145)
--- NOTE | 2017-01-23 10:51 | PDOC PROGRESS REPORT ---
Subjective Progress Note for:: 01/23/17 Subjective:: Patient voices no complaints. No reported respiratory distress temperature spikes nor diarrhea. Physical Exam Vital Signs: Temp Pulse Resp BP Pulse Ox 98.1 F 114 H 18 141/76 H 100 01/23/17 08:09 01/23/17 08:09 01/23/17 08:09 01/23/17 08:09 01/23/17 08:09 Intake & Output 01/22/17 01/23/17 01/24/17 06:59 06:59 06:59 Intake Total 3459 1790 Output Total 2630 2030 Balance 829 -240 Weight 48 kg 49.4 kg General appearance: PRESENT: no acute distress, cooperative Head exam: PRESENT: normocephalic Eye exam: PRESENT: EOMI Mouth exam: PRESENT: moist, neck supple Neck exam: ABSENT: JVD Respiratory exam: PRESENT: clear to auscultation celi. ABSENT: rhonchi, wheezes Cardiovascular exam: PRESENT: RRR. ABSENT: gallop GI/Abdominal exam: PRESENT: soft. ABSENT: distended Extremities exam: ABSENT: pedal edema Neurological exam: PRESENT: alert, awake Skin exam: PRESENT: dry, warm. ABSENT: cyanosis Results Laboratory Results: 01/20/17 03:34 01/23/17 05:45 01/23/17 05:45 Sodium 139.8 Potassium 3.9 Chloride 112 H Carbon Dioxide 23 Anion Gap 5 BUN 15 Creatinine 1.00 Est GFR ( Amer) > 60 Est GFR (Non-Af Amer) > 60 Glucose 89 Calcium 9.9 01/18/17 01/19/17 01/19/17 21:35 01:07 01:07 Creatine Kinase 123 89 CK-MB (CK-2) 2.28 Troponin I 0.212 01/19/17 01/19/17 01/19/17 06:20 06:20 12:40 Creatine Kinase 79 69 CK-MB (CK-2) 2.62 Troponin I 0.181 01/19/17 14:00 Creatine Kinase CK-MB (CK-2) 1.98 Troponin I 0.122 Impressions: Abdomen/Pelvis CT 01/18/17 00:00 IMPRESSION: Necrotic process in the urinary bladder, presumably status post cystoscopy, but no further history is provided. Interval right nephrostomy. No hydronephrosis. Chest X-Ray 01/18/17 13:10 IMPRESSION: NO ACUTE RADIOGRAPHIC FINDING IN THE CHEST. Head CT 01/18/17 13:10 IMPRESSION: CHRONIC CHANGES OF ATROPHY AND MICROVASCULAR ISCHEMIA. NO ACUTE PROCESS. Assessment & Plan - Diagnosis (1) Severe sepsis Is this a current diagnosis for this admission?: Yes (3) Acute renal failure Qualifiers: Acute renal failure type: unspecified Qualified Code(s): N17.9 - Acute kidney failure, unspecified Is this a current diagnosis for this admission?: Yes (4) Dehydration Is this a current diagnosis for this admission?: Yes (5) Hypernatremia Is this a current diagnosis for this admission?: Yes (6) Hypercalcemia Is this a current diagnosis for this admission?: Yes (7) Bladder mass Is this a current diagnosis for this admission?: Yes (8) Anemia of chronic disease Is this a current diagnosis for this admission?: Yes (9) Hydronephrosis, right Is this a current diagnosis for this admission?: Yes (10) Gout Qualifiers: Gout site: unspecified site Gout etiology: unspecified cause Chronicity: unspecified Qualified Code(s): M10.9 - Gout, unspecified Is this a current diagnosis for this admission?: Yes (11) Essential hypertension Is this a current diagnosis for this admission?: Yes (12) Hyperlipidemia Qualifiers: Hyperlipidemia type: unspecified Qualified Code(s): E78.5 - Hyperlipidemia, unspecified Is this a current diagnosis for this admission?: Yes (13) Depression Qualifiers: Depression Type: unspecified Qualified Code(s): F32.9 - Major depressive disorder, single episode, unspecified (14) History of prostate cancer Is this a current diagnosis for this admission?: Yes - Time Time Spent with patient: 15-24 minutes - Plan Summary Plan Summary: Continue current antibiotics. Continue supportive care. Discharge home with family on the weekend.
[2017-01-23] MEDS: FAMOTIDINE 20 MG TABLET PO SCH ×2 (11:56→22:30)
[2017-01-23] MEDS: ALLOPURINOL 100 MG TABLET PO SCH ×2 (11:56→17:48)
[2017-01-23] MEDS: ASPIRIN 81 MG TABLET, ENT COATED PO SCH (11:56)
[2017-01-23] MEDS: ERTAPENEM SODIUM 0.5 GM in NORMAL SALINE 50 ML IV SCH (12:00)
[2017-01-23] MEDS: MEGESTROL ACETATE SUSP 400 MG/10 ML UDCUP PO SCH (12:00)
[2017-01-23] MEDS: CALCITONIN,SALMON,SYNTHETIC 400 UNIT/2 ML VIAL IM SCH ×2 (12:01→22:33)
[2017-01-23] MEDS: DOCUSATE SODIUM 100 MG CAPSULE PO SCH ×2 (12:02→17:48)
[2017-01-23] MEDS: POLYETHYLENE GLYCOL 3350 POWDER 17 GM/1 PACKET PO SCH (12:02)
[2017-01-23] MEDS ORDERED: ATENOLOL 50 MG TABLET PO ONE (16:30)
[2017-01-23] MEDS: 1/2 NORMAL SALINE 1,000 ML IV PRN (20:01)
[2017-01-23] MEDS: SENNOSIDES/DOCUSATE 8.6-50 MG 1 EACH TABLET PO SCH (22:31)
[2017-01-24] MEDS ORDERED: ATENOLOL 50 MG TABLET PO SCH (10:00)
[2017-01-24] MEDS: ALLOPURINOL 100 MG TABLET PO SCH (10:04)
[2017-01-24] MEDS: ASPIRIN 81 MG TABLET, ENT COATED PO SCH (10:04)
[2017-01-24] MEDS: FAMOTIDINE 20 MG TABLET PO SCH (10:04)
[2017-01-24] MEDS: MEGESTROL ACETATE SUSP 400 MG/10 ML UDCUP PO SCH (10:05)
[2017-01-24] MEDS: DOCUSATE SODIUM 100 MG CAPSULE PO SCH (10:05)
[2017-01-24] MEDS: POLYETHYLENE GLYCOL 3350 POWDER 17 GM/1 PACKET PO SCH (10:05)
[2017-01-24] MEDS: ERTAPENEM SODIUM 0.5 GM in NORMAL SALINE 50 ML IV SCH (10:05)
--- NOTE | 2017-01-24 11:18 | PDOC DISCHARGE SUMMARY ---
General - Admit/Disc Date/PCP Admission Date/Primary Care Provider: 01/18/17 18:19 Discharge Date: 01/24/17 - Discharge Diagnosis (1) Severe sepsis Is this a current diagnosis for this admission?: Yes (3) Acute renal failure Is this a current diagnosis for this admission?: Yes (4) Dehydration Is this a current diagnosis for this admission?: Yes (5) Hypernatremia Is this a current diagnosis for this admission?: Yes (6) Hypercalcemia Is this a current diagnosis for this admission?: Yes (7) Bladder mass Is this a current diagnosis for this admission?: YesSummary: Urothelial bladder cancer (8) Anemia of chronic disease Is this a current diagnosis for this admission?: Yes (9) Hydronephrosis, right Is this a current diagnosis for this admission?: Yes (10) Gout Is this a current diagnosis for this admission?: Yes (11) Essential hypertension Is this a current diagnosis for this admission?: Yes (12) Hyperlipidemia Is this a current diagnosis for this admission?: Yes (14) History of prostate cancer Is this a current diagnosis for this admission?: Yes - Additional Information Resuscitation Status: Do Not Resuscitate Discharge Diet: Cardiac, Other (Comments) - Increase oral fluid intake Discharge Activity: Activity As Tolerated, Balance Activity w/Rest Home Medications: Allopurinol [Zyloprim 100 mg Tablet] 100 mg PO BID 01/19/17 Aspirin [Ecotrin 81 mg EC Tablet] 81 mg PO DAILY 01/19/17 Atenolol [Tenormin 50 mg Tablet] 50 mg PO DAILY 01/19/17 Atorvastatin Calcium [Lipitor 20 mg Tablet] 20 mg PO DAILY 01/19/17 Cholecalciferol (Vitamin D3) [Vitamin D3] 2,000 unit PO DAILY 01/19/17 Lisinopril [Prinivil] 20 mg PO DAILY 01/19/17 Megestrol Acetate [Megace] 400 mg PO DAILY 01/19/17 Docusate Sodium [Colace 100 mg Capsule] 100 mg PO BID capsule 01/24/17 Doxycycline Hyclate 100 mg PO BID #20 tablet. 01/24/17 Polyethylene Glycol 3350 [Miralax Powder 17 gm/Packet] 17 gm PO DAILY PRN #30 powd.pack 01/24/17 Additional Information: Repeat calcium level as outpatient with primary care physician Manasa 1 week. History of Present Illness Patient complains of: Altered mental status. History of Present Illness: DOMENIC ESQUEDA is a 76 year old male with a history of bladder mas, gout, htn presented to the emergency department with altered mental status. Patient has no family in this area and his family into town from [place]. They apparently found him on the floor. Patient is unable to provide any history at this time. Patient's family was unaware previously that he was this ill. Patient is referred to the hospitalist service for severe sepsis with pyelonephritis. Details in the history and physical examination please refer to the one dictated by admitting physician. Hospital Course Hospital Course: The patient was admitted to [facility]. The patient was started on intravenous fluid with normal saline. Calcitonin was given and eventually the patient's calcium level normalized. With hydration the patient creatinine likewise normalized. Subsequently his mental status improved and he was started on diet. He was found to have sepsis and urinary tract infection where he was placed on broad- spectrum antibiotic. Culture did reveal Staphylococcus epidermidis and corynebacterium likely a contaminant. He was maintained on broad-spectrum antibiotic for culture and sensitivity report. The patient continues to improve and his WBC improved and trended down. Patient however is a DNR. Patient aware of the possibility of malignancy and likewise the family. Hospice was consulted. The patient preferred to go back home with family in [place] and therefore hospice in [place] was consulted. Patient was accepted. Patient and family were advised to have a primary care physician in a urologist for him to follow. Patient was advised to increase oral fluid intake. Course was also noted for hypernatremia that eventually corrected with hydration. The rest of the hospital stays unremarkable. On review of records from [facility], bladder mass noted to be urothelial bladder cancer. Physical Exam Vital Signs: Temp Pulse Resp BP Pulse Ox 98.8 F 89 18 120/71 100 01/24/17 08:40 01/24/17 08:40 01/24/17 08:40 01/24/17 08:40 01/24/17 08:40 Intake & Output 01/23/17 01/24/17 01/25/17 06:59 06:59 06:59 Intake Total 1790 2704 Output Total 2030 1950 Balance -240 754 Weight 49.4 kg 49.2 kg General appearance: PRESENT: no acute distress, cooperative, thin Head exam: PRESENT: normocephalic Eye exam: PRESENT: EOMI Mouth exam: PRESENT: moist, neck supple Neck exam: ABSENT: JVD Respiratory exam: PRESENT: clear to auscultation celi Cardiovascular exam: PRESENT: RRR. ABSENT: gallop GI/Abdominal exam: PRESENT: soft, other - Draper catheter in place. ABSENT: distended, tenderness Extremities exam: ABSENT: pedal edema Neurological exam: PRESENT: alert, awake, oriented to situation Skin exam: PRESENT: dry, warm. ABSENT: cyanosis Results Laboratory Results: 01/20/17 03:34 01/23/17 05:45 01/18/17 01/19/17 01/19/17 21:35 01:07 01:07 Creatine Kinase 123 89 CK-MB (CK-2) 2.28 Troponin I 0.212 01/19/17 01/19/17 01/19/17 06:20 06:20 12:40 Creatine Kinase 79 69 CK-MB (CK-2) 2.62 Troponin I 0.181 01/19/17 14:00 Creatine Kinase CK-MB (CK-2) 1.98 Troponin I 0.122 Impressions: Abdomen/Pelvis CT 01/18/17 00:00 IMPRESSION: Necrotic process in the urinary bladder, presumably status post cystoscopy, but no further history is provided. Interval right nephrostomy. No hydronephrosis. Chest X-Ray 01/18/17 13:10 IMPRESSION: NO ACUTE RADIOGRAPHIC FINDING IN THE CHEST. Head CT 01/18/17 13:10 IMPRESSION: CHRONIC CHANGES OF ATROPHY AND MICROVASCULAR ISCHEMIA. NO ACUTE PROCESS. Qualifiers PATEINT BEING DISCHARGED WITH ANY OF THE FOLLOWING DIAGNOSIS?: No Plan Discharge Plan: Follow-up with a primary care physician in 1 week. Follow-up with urologist in 1 week. Time Spent: Less than 30 Minutes
[2017-01-24 12:29] VITALS: BP 133/79
== END 2017-01-24 13:00 | disposition hospice, home (50) | DRG 871 ==
LOC: ER 12:58 → UNDOADMIN 17:55 → EH 17:55 → 3W 20:15
PROVIDERS: ADMIT Family Medicine; ATTEND Family Medicine
PROC: 06HM33Z Insertion of Infusion Device into Right Femoral Vein, Percutaneous Approach (ICD-10-PCS; principal; 2017-01-18)
PROC: B54BZZA Ultrasonography of Right Lower Extremity Veins, Guidance (ICD-10-PCS; 2017-01-18)
PROC: 0T9B70Z Drainage of Bladder with Drainage Device, Via Natural or Artificial Opening (ICD-10-PCS; 2017-01-19)
DX: A41.9 Sepsis, unspecified organism (principal); E43 Unspecified severe protein-calorie malnutrition; N39.0 Urinary tract infection, site not specified; Z66 Do not resuscitate; N17.9 Acute kidney failure, unspecified; E87.0 Hyperosmolality and hypernatremia; N13.30 Unspecified hydronephrosis; Z68.1 Body mass index [BMI] 19.9 or less, adult; R65.20 Severe sepsis without septic shock; E83.52 Hypercalcemia; D50.0 Iron deficiency anemia secondary to blood loss (chronic); I12.9 Hypertensive chronic kidney disease with stage 1 through stage 4 chronic kidney disease, or unspecified chronic kidney disease; N18.3 Chronic kidney disease, stage 3 (moderate); C67.9 Malignant neoplasm of bladder, unspecified; E86.0 Dehydration; E78.5 Hyperlipidemia, unspecified; M10.9 Gout, unspecified; F32.9 Major depressive disorder, single episode, unspecified; R53.1 Weakness; Z60.2 Problems related to living alone; Z79.82 Long term (current) use of aspirin; Z79.899 Other long term (current) drug therapy; Z88.0 Allergy status to penicillin; Z85.46 Personal history of malignant neoplasm of prostate; Z93.6 Other artificial openings of urinary tract status
CPT/HCPCS: 36415; 70450; 71010; 74176; 80048; 80053; 81001; 82330; 82550; 82553; 83605; 83615; 83735; 84100; 84443; 84484; 85025; 85610; 85730; 87040; 87086; 87088; 87186; 99285; C1751; G8978-GP; G8979-GP; J0630; J0743; J1335; J1642; J3370; J3490; J7030; J7050; J7060